=== PATIENT | female | born 1940 | race Caucasian/White ===

== ENCOUNTER 2023-06-30 08:36 | Emergency (ER) | payer MEDICARE, BC, SELFPAY ==
[2023-06-30 08:37] VITALS: BP 156/68
--- NOTE | 2023-06-30 08:42 | ED.GENMED ---
History of Present Illness
General
Chief Complaint: Fall
Source: patient and ambulance crew
Exam Limitations: none
Time Seen by Provider: 06/30/23 08:41
Nursing documentation reviewed up to this point in time: agreed with
Travel History
Have you had any contact with someone who has COVID-19?: No
Do you have any symptoms of coronavirus? Fever > 100 degrees, chills, cough, shortness of breath, sore throat, loss of taste or smell, muscle aches, or headache?: No
History of Present Illness
History of Present Illness:
82-year-old female with a past medical history as documented presents to the emergency room for evaluation after fall with head trauma. Patient currently lives at home independently in the community. She says that she urinates frequently given a
history of bladder cancer. She says that this morning she woke up to go to the bathroom and while she was pulling down her pants send the toilet she lost her balance and fell towards the right. She says she landed on her right side and struck the
right side of her head on the bathroom cabinet. She says she did not pass out. She sustained a laceration to right forehead. She says she was able to get up on her own and get dressed and called for help. EMS transported her to the emergency
room for assessment. She complains of a headache and some very mild pain in the right side of her neck since the fall. She says she did land on her shoulder but has no significant pain in her shoulder. She has no back pain. Denies any chest pain
or abdominal pain. She denies any pain in her lower extremities And was ambulatory after the fall. She denies being on any blood thinners. She says that her last tetanus was greater than 5 years ago.
Past History
Past History
ED Past Medical History: HTN and Other (Shelby's esophagus, atrophic vaginitis)
ED Past Surgical History: Cardiac (Had catheterization) and Orthopedic (Right knee replacement)
Social History
Tobacco: Non-smoker
Alcohol: None
Drug: None
Personal: Single
Living: alone
Employment: Retired
Family History
Family History: Other (Noncontributory)
Review of Systems
Review of Systems
All Other Systems: ROS reviewed and negative except as documented in HPI and ROS
Respiratory: Denies trouble breathing
Cardiac: Denies chest pain
ABD/GI: Denies abdominal pain, nausea or vomiting
: Denies flank pain
Musculoskeletal: Reports neck pain; Denies back pain
Neurological: Reports headache; Denies dizzy, weakness or numbness
Phy Exam
Physical Exam
Physical Exam:
General: Awake, alert, oriented x3 with a GCS of 15; no acute distress
Head: Normocephalic, right forehead laceration approximately 1.5 cm in linear, superficial
Eyes: Conjunctiva normal, pupils equal round reactive to light bilateral
Throat: Airway intact, handling secretions
Neck: Trachea midline, no midline cervical spine tenderness, very mild tenderness to the right upper trapezius region
Lungs: Clear to auscultation bilaterally, no wheezing, rales, rhonchi
Heart: Regular rate and rhythm, no murmurs, gallops, or rubs; no chest wall tenderness
Abd: Soft, non distended, nontender
Back: No signs of trauma to the back or flank and no tenderness in the thoracic or lumbar spine, no posterior rib tenderness
Neuro: Cranial nerves grossly intact, speech fluid, no gross motor or sensory deficits
Skin: Forehead laceration as above
Extremities: Atraumatic, no tenderness in the right shoulder and allows for full passive range of motion of the right shoulder without discomfort; she has no pain with range of motion of the hips bilaterally her knees bilaterally; no edema in
extremities, equal pulses in all extremities
Scores
Heart Failure Risk
Heart Failure Risk Score: Not Applicable
Heart Score for Chest Pain Patients
STEMI patient?: Not applicable
Withdrawal Assessment of Alcohol
Withdrawal Assessment Completed?: Not applicable
Course
Orders/Labs/Results
Orders:
Orders
06/30/23 08:41
Tetanus/Diphth/Acelpertussis [Adacel] 0.5 ml IM .ONCE ONE
06/30/23 08:42
CT Cervical Spine W/o Iv Contr Urgent
Comment:
Reason For Exam: neck pain s/p fall
CT Head W/o Iv Contrast Urgent
Comment:
Reason For Exam: fall with right frontal headstrike
Acetaminophen [Tylenol] 1,000 mg PO NOW STA
Vital Signs
Initial and Last Documented VS:
Initial Vital Signs
Temp Pulse Resp BP Pulse Ox
36.9 C 73 20 156/68 99
06/30/23 08:37 06/30/23 08:37 06/30/23 08:37 06/30/23 08:37 06/30/23 08:37
Last Documented Vital Signs
Temp Pulse Resp BP Pulse Ox
36.9 C 73 20 156/68 99
06/30/23 08:37 06/30/23 08:37 06/30/23 08:37 06/30/23 08:37 06/30/23 08:37
Procedures
Laceration Closure
Right Forehead:
Status of Wound: clean
Size of Wound in cm: 1.5
Description of Wound Edges: sharp
Preparation: cleaned with saline
Revision/Debridement: routine- no revision
Type of Closure: Dermabond-skin glue
MDM/Problems Addressed
Differential Diagnosis Includes:
Fall with head trauma: Must rule out intracranial hemorrhage but suspect more likely forehead contusion as cause for headache
Neck pain: Cervical strain, fracture
MDM/Problems Addressed:
82-year-old female presents after mechanical trip and fall in the bathroom this morning with head strike. She complains of headache and some mild right-sided neck pain. Vital signs within acceptable range. Physical exam as above. Will plan to
check CT head and cervical spine. Will update tetanus. Irrigate and repair laceration. Tylenol for headache. Monitor closely reassess after the above.
CT head and cervical spine negative for any acute traumatic injuries. Irrigated and repaired laceration using Dermabond as documented procedure note. Patient feeling well, vital signs stable. Plan for discharge; daughter at bedside feels
comfortable this plan. Spoke about return precautions all questions answered.
Acute Exacerbation and/or Progression of Chronic Illness:
Acutely hypertensive�no signs or symptoms of hypertensive emergency no indication for emergent antihypertensive treatment at present
Acute Exacerbation and/or Progression of Chronic Illness: HTN
*Radiology
Radiology exam reviewed: radiology read reviewed
*Pulse Oximetry
Patient hypoxic: no
*Critical Care Note
Total Time (30-74mins, 75-104mins- exclusive of procedures): Not Applicable
Data Reviewed
Source: patient and ambulance crew
ED Attending Note
-
Portions of this chart may have been created with voice recognition software.� Occasional wrong word or��sound alike� substitutions may have occurred due to the inherent limitations of voice recognition software.
Discharge Plan
Departure
Patient Disposition: Home (Routine Discharge)
Date of Disposition: 06/30/23
Time of Disposition: 09:35
Patient with high blood pressure during this ER visit?: Yes
Discharge Problem:
Contusion of forehead, Forehead laceration
Instructions: Laceration Repair With Glue (DC), Contusion (DC), Preventing falls in adults
Prescriptions:
No Action
pantoprazole 40 MG tablet,delayed release (DR/EC)
40 mg PO DAILY
levothyroxine 125 MCG tablet
125 mcg PO DAILY
escitalopram oxalate 20 MG tablet
20 mg PO DAILY
cholecalciferol (vitamin D3) 2,000 UNITS tablet
2,000 units PO DAILY
multivitamin with folic acid [Tab-A-Cesario] 1 TABLET tablet
1 tab PO DAILY
Jublia 4 ML solution with applicator
4 ml TP DAILY
Rx Instructions:
fungus on toe
amlodipine 2.5 MG tablet
2.5 mg PO DAILY Qty: 0 0RF
Rx Instructions:
Hold if systolic blood pressure <130 while on Oxycodone.
polyethylene glycol 3350 [Miralax] 17 gram Powder In Packet
17 g PO .EVERYOTHERDAY
calcium carbonate-vitamin D3 [Calcium + D] 600 mg-5 mcg (200 unit) Tablet
1 tab PO BID
Citrucel 500 mg Tablet
1,000 mg PO .EVERYOTHERDAY
darifenacin 7.5 mg Tablet Extended Release 24 Hr
7.5 mg PO DAILY
oxybutynin chloride 10 mg Tablet Extended Release 24hr
10 mg PO DAILY
Tylenol Ex Str Arthritis Pain
1,000 mg PO PRN PRN (Reason: discomfort)
Prolia 60 mg/mL Syringe
60 mg SC [id number]
phenazopyridine [Pyridium] 100 mg Tablet
100 mg PO TID PRN (Reason: burning with urination)
Referrals:
Lauren Friedman CRNP [Family Provider] - Follow up in 1 week
Activity Restrictions/Additional Instructions:
Thank you for visiting the Emergency Department at [facility].
1. Please schedule a follow up appointment as directed. Call first thing tomorrow morning to make an appointment.
2. If indicated, please take your medications as instructed and indicated on discharge paperwork.
3. If any of your symptoms do not improve, or persist, or become more severe within 6-12 hours, please return to the emergency department for further care.
4. Please return to the emergency department if you develop a headache, neck pain/stiffness, fever greater than 100.4F, chest pain, shortness of breath, persistent nausea, vomiting, slurred speech, difficulty walking, numbness/tingling, weakness,
signs of infection or any other symptoms that are worrisome to you.
Please call [phone] if you have any questions.
Interventions
Interventions:
*Risk Screen - Suicide Last Done: 06/30/23 08:43
*General Assessment Last Done: 06/30/23 08:43
*Neglect/Abuse Screening Last Done: 06/30/23 08:43
ED- Fall Risk Assessment Last Done: 06/30/23 08:43
*ED COVID-19 Vaccine History Last Done: 06/30/23 08:37
ED-Musculoskeletal Assessment Last Done: 06/30/23 08:43
ED- Neurological Assessment Last Done: 06/30/23 08:43
ED-Skin Assessment Last Done: 06/30/23 08:43
[2023-06-30] MEDS: TYLENOL 1000 MG PO (08:46)
[2023-06-30] MEDS: ADACEL 0.5 ML IM (08:47)
== END 2023-06-30 10:05 | disposition home or self-care (01) ==
LOC: EMR 08:36
PROVIDERS: EMERGENCY PHYSICIAN Emergency Medicine; FAMILY PHYSICIAN Nurse Practitioner Primary Care
DX: S01.81XA Laceration without foreign body of other part of head, initial encounter (principal); S00.83XA Contusion of other part of head, initial encounter; M54.2 Cervicalgia; R51.9 Headache, unspecified; W01.198A Fall on same level from slipping, tripping and stumbling with subsequent striking against other object, initial encounter; Y92.002 Bathroom of unspecified non-institutional (private) residence as the place of occurrence of the external cause; I10 Essential (primary) hypertension; K22.70 Barrett's esophagus without dysplasia; K21.9 Gastro-esophageal reflux disease without esophagitis; K44.9 Diaphragmatic hernia without obstruction or gangrene; M19.90 Unspecified osteoarthritis, unspecified site; E03.9 Hypothyroidism, unspecified; F41.9 Anxiety disorder, unspecified; F32.A Depression, unspecified; Z96.653 Presence of artificial knee joint, bilateral; Z85.51 Personal history of malignant neoplasm of bladder; Z85.828 Personal history of other malignant neoplasm of skin
CPT/HCPCS: 99284; 12011; 70450; 72125; 90715

== ENCOUNTER → 2023-08-20 10:59 | Outpatient (REF) | payer MEDICARE, BC, SELFPAY | LOC: PAVMRI 10:59 | PROVIDERS: ATTENDING PHYSICIAN Nurse Practitioner Family; FAMILY PHYSICIAN Nurse Practitioner Primary Care; OTHER PHYSICIAN Urology | DX: R07.81 Pleurodynia (principal); C67.8 Malignant neoplasm of overlapping sites of bladder | CPT/HCPCS: 74183; A9575 ==

== ENCOUNTER → 2023-09-09 08:19 | Outpatient (REF) | payer MEDICARE, BC, SELFPAY ==
[2023-09-09 09:17] LABS: % Basophils 0.7 % (0-2); % Eosinophils 2.6 % (0-6); % Lymphocytes 29.2 % (20.5-51.1); % Neutrophils 58.5 % (42.2-75.2); Absolute Eosinophils 0.2 10^3/uL (0-0.7); Absolute Immature Granulocytes 0.1 10^3/uL (0-0.05); Absolute Lymphocytes 1.8 10^3/uL (1.2-3.4); Absolute Monocytes 0.5 10^3/uL (0.1-0.6); Absolute Neutrophils 3.6 10^3/uL (1.4-6.5); Hematocrit 36.2 % (37.0-47.0); Hemoglobin 11.7 g/dL (12.0-16.0); Mean Corp Hgb Conc. 32.3 g/dL (33.0-37.0); Mean Corpuscular Hgb 30.6 pg (27.0-31.0); Mean Corpuscular Volume 94.8 fL (81.0-99.0); Mean Platelet Volume 10.3 fL (7.4-10.4); Nucleated Red Blood Cells % 0 %; Platelet Count 288 10^3/uL (130-400); Red Blood Cell Count 3.82 10^6/uL (4.20-5.40); Red Cell Dist. Width 14.2 % (11.5-14.5); White Blood Cell Count 6.1 10^3/uL (4.8-10.8)
[2023-09-09 12:56] LABS: Free T4 1.48 ng/dl (0.78-2.19)
[2023-09-09 13:14] LABS: Ferritin 29.3 ng/ml (11.1-264.0)
[2023-09-09 13:46] LABS: Folate > 20.0 ng/ml (2.76-20); Vitamin B12 308 pg/ml (239-931)
[2023-09-09 14:05] LABS: ALT (SGPT) 20 U/L (0-35); AST (SGOT) 28 U/L (14-36); Albumin 3.9 g/dl (3.5-5.0); Alkaline Phosphatase 98 U/L (38-126); Blood Urea Nitrogen 12 mg/dl (7-17); Calcium 9.3 mg/dl (8.4-10.2); Carbon Dioxide 25 mmol/L (22-30); Chloride 106 mmol/L (98-107); Glucose 100 mg/dl (70-99); HDL Cholesterol 51 mg/dl; Iron 92 ug/dl (37-170); LDL Cholesterol, Calculated 108 mg/dl; Potassium 4.6 mmol/L (3.5-5.1); Sodium 142 mmol/L (135-145); Total Bilirubin 0.4 mg/dl (0.2-1.3); Total Cholesterol 186 mg/dl (50-199); Total Protein 6.8 g/dl (6.3-8.2); Triglyceride 136 mg/dl (10-149); Very Low Density Lipoprotein 27 mg/dl (0-30); eGFR > 60.00
== END ==
LOC: REG 08:19
PROVIDERS: ATTENDING PHYSICIAN Nurse Practitioner Primary Care; REFERRING PHYSICIAN Urology
DX: I10 Essential (primary) hypertension (principal); K21.9 Gastro-esophageal reflux disease without esophagitis; E03.8 Other specified hypothyroidism; M51.36 Other intervertebral disc degeneration, lumbar region; E03.9 Hypothyroidism, unspecified
CPT/HCPCS: 36415; 80053; 80061; 82607; 82728; 82746; 83540; 83735; 84439; 84443; 85025

== ENCOUNTER → 2023-11-07 12:36 | Outpatient (REF) | payer MEDICARE, BC, SELFPAY ==
[2023-11-07 13:21] LABS: % Basophils 0.4 % (0-2); % Eosinophils 2.3 % (0-6); % Immature Granulocytes 0.9 % (0-0.5); % Lymphocytes 29.3 % (20.5-51.1); % Monocytes 7.7 % (1.7-9.3); % Neutrophils 59.4 % (42.2-75.2); Absolute Eosinophils 0.2 10^3/uL (0-0.7); Absolute Immature Granulocytes 0.1 10^3/uL (0-0.05); Absolute Monocytes 0.5 10^3/uL (0.1-0.6); Absolute Neutrophils 4.1 10^3/uL (1.4-6.5); Hematocrit 38.6 % (37.0-47.0); Hemoglobin 12.2 g/dL (12.0-16.0); Mean Corp Hgb Conc. 31.6 g/dL (33.0-37.0); Mean Corpuscular Volume 94.8 fL (81.0-99.0); Nucleated Red Blood Cells % 0 %; Platelet Count 373 10^3/uL (130-400); Red Blood Cell Count 4.07 10^6/uL (4.20-5.40); Red Cell Dist. Width 12.3 % (11.5-14.5); White Blood Cell Count 6.9 10^3/uL (4.8-10.8)
[2023-11-07 13:44] LABS: ALT (SGPT) 17 U/L (0-35); AST (SGOT) 27 U/L (14-36); Albumin 3.8 g/dl (3.5-5.0); Alkaline Phosphatase 120 U/L (38-126); Blood Urea Nitrogen 18 mg/dl (7-17); Calcium 9.5 mg/dl (8.4-10.2); Carbon Dioxide 28 mmol/L (22-30); Chloride 107 mmol/L (98-107); Glucose 123 mg/dl (70-99); Potassium 4.5 mmol/L (3.5-5.1); Sodium 142 mmol/L (135-145); Total Bilirubin 0.4 mg/dl (0.2-1.3); eGFR > 60.00
[2023-11-07 14:22] LABS: Cortisol, Random 11.8 ug/dl; TSH Reflex To Free T4 1.33 uIU/ml (0.47-4.68)
== END ==
LOC: REG 12:36
PROVIDERS: ATTENDING PHYSICIAN Internal Medicine Hematology & Oncology; FAMILY PHYSICIAN Nurse Practitioner Primary Care
DX: C67.9 Malignant neoplasm of bladder, unspecified (principal); E03.9 Hypothyroidism, unspecified
CPT/HCPCS: 36415; 80053; 82533; 84443; 85025

== ENCOUNTER → 2023-12-01 13:38 | Outpatient (REF) | payer MEDICARE, BC, SELFPAY ==
[2023-12-01 14:28] LABS: % Basophils 0.5 % (0-2); % Eosinophils 0.9 % (0-6); % Immature Granulocytes 0.7 % (0-0.5); % Lymphocytes 23.3 % (20.5-51.1); % Monocytes 8.4 % (1.7-9.3); % Neutrophils 66.2 % (42.2-75.2); Absolute Basophils 0.1 10^3/uL (0-0.2); Absolute Eosinophils 0.1 10^3/uL (0-0.7); Absolute Immature Granulocytes 0.1 10^3/uL (0-0.05); Absolute Lymphocytes 2.3 10^3/uL (1.2-3.4); Absolute Monocytes 0.8 10^3/uL (0.1-0.6); Absolute Neutrophils 6.5 10^3/uL (1.4-6.5); Hematocrit 36.4 % (37.0-47.0); Hemoglobin 12.3 g/dL (12.0-16.0); Mean Corp Hgb Conc. 33.8 g/dL (33.0-37.0); Mean Corpuscular Hgb 30.5 pg (27.0-31.0); Mean Corpuscular Volume 90.3 fL (81.0-99.0); Mean Platelet Volume 10.1 fL (7.4-10.4); Nucleated Red Blood Cells % 0 %; Platelet Count 349 10^3/uL (130-400); Red Blood Cell Count 4.03 10^6/uL (4.20-5.40); Red Cell Dist. Width 13.2 % (11.5-14.5); White Blood Cell Count 9.8 10^3/uL (4.8-10.8)
[2023-12-01 14:48] LABS: ALT (SGPT) 16 U/L (0-35); AST (SGOT) 26 U/L (14-36); Albumin 4.2 g/dl (3.5-5.0); Alkaline Phosphatase 124 U/L (38-126); Blood Urea Nitrogen 15 mg/dl (7-17); Calcium 9.8 mg/dl (8.4-10.2); Carbon Dioxide 26 mmol/L (22-30); Chloride 104 mmol/L (98-107); Glucose 126 mg/dl (70-99); Potassium 4.2 mmol/L (3.5-5.1); Sodium 140 mmol/L (135-145); Total Bilirubin 0.3 mg/dl (0.2-1.3); Total Protein 7.4 g/dl (6.3-8.2); eGFR > 60.00
[2023-12-01 15:06] LABS: Free T4 1.24 ng/dl (0.78-2.19)
[2023-12-01 15:20] LABS: TSH 8.44 uIU/ml (0.47-4.68)
[2023-12-03 17:14] LABS: Total T3 (Sendout) 101 ng/dL (80-200)
== END ==
LOC: REG 13:38
PROVIDERS: ATTENDING PHYSICIAN Internal Medicine Hematology & Oncology; FAMILY PHYSICIAN Nurse Practitioner Primary Care
DX: C67.9 Malignant neoplasm of bladder, unspecified (principal); E03.9 Hypothyroidism, unspecified
CPT/HCPCS: 36415; 80053; 84439; 84443; 84480; 85025

== ENCOUNTER → 2023-12-23 16:30 | Outpatient (REF) | payer MEDICARE, BC, SELFPAY ==
[2023-12-23 17:43] LABS: % Basophils 0.7 % (0-2); % Immature Granulocytes 0.7 % (0-0.5); % Lymphocytes 26.3 % (20.5-51.1); % Monocytes 8.4 % (1.7-9.3); % Neutrophils 61.9 % (42.2-75.2); Absolute Basophils 0.1 10^3/uL (0-0.2); Absolute Eosinophils 0.2 10^3/uL (0-0.7); Absolute Immature Granulocytes 0.1 10^3/uL (0-0.05); Absolute Monocytes 0.6 10^3/uL (0.1-0.6); Absolute Neutrophils 4.8 10^3/uL (1.4-6.5); Mean Corp Hgb Conc. 33.3 g/dL (33.0-37.0); Mean Corpuscular Hgb 30.2 pg (27.0-31.0); Mean Corpuscular Volume 90.5 fL (81.0-99.0); Mean Platelet Volume 10.2 fL (7.4-10.4); Nucleated Red Blood Cells % 0 %; Platelet Count 345 10^3/uL (130-400); Red Blood Cell Count 3.98 10^6/uL (4.20-5.40); Red Cell Dist. Width 13.2 % (11.5-14.5); White Blood Cell Count 7.7 10^3/uL (4.8-10.8)
[2023-12-23 17:50] LABS: Iron 62 ug/dl (37-170)
[2023-12-23 18:00] LABS: Percent Saturation 17 % (20-50); Total Iron Binding Capacity 353 ug/dl (265-497)
[2023-12-23 18:08] LABS: Free T4 1.39 ng/dl (0.78-2.19)
[2023-12-23 18:22] LABS: TSH 2.22 uIU/ml (0.47-4.68)
[2023-12-23 18:26] LABS: Ferritin 25.5 ng/ml (11.1-264.0)
== END ==
LOC: REG 16:30
PROVIDERS: ATTENDING PHYSICIAN Nurse Practitioner Primary Care
DX: E03.8 Other specified hypothyroidism (principal); D64.9 Anemia, unspecified
CPT/HCPCS: 36415; 82728; 83540; 83550; 84439; 84443; 85025

== ENCOUNTER → 2023-12-24 14:54 | Outpatient (REF) | payer MEDICARE, BC, SELFPAY ==
[2023-12-24 16:27] LABS: % Basophils 0.5 % (0-2); % Eosinophils 1.5 % (0-6); % Immature Granulocytes 0.7 % (0-0.5); % Lymphocytes 20.7 % (20.5-51.1); % Monocytes 8.7 % (1.7-9.3); % Neutrophils 67.9 % (42.2-75.2); Absolute Basophils 0.1 10^3/uL (0-0.2); Absolute Eosinophils 0.2 10^3/uL (0-0.7); Absolute Immature Granulocytes 0.1 10^3/uL (0-0.05); Absolute Monocytes 0.8 10^3/uL (0.1-0.6); Absolute Neutrophils 6.6 10^3/uL (1.4-6.5); Hematocrit 34.8 % (37.0-47.0); Hemoglobin 11.9 g/dL (12.0-16.0); Mean Corp Hgb Conc. 34.2 g/dL (33.0-37.0); Mean Corpuscular Hgb 30.9 pg (27.0-31.0); Mean Corpuscular Volume 90.4 fL (81.0-99.0); Mean Platelet Volume 10.3 fL (7.4-10.4); Nucleated Red Blood Cells % 0 %; Platelet Count 341 10^3/uL (130-400); Red Blood Cell Count 3.85 10^6/uL (4.20-5.40); Red Cell Dist. Width 13.2 % (11.5-14.5); White Blood Cell Count 9.7 10^3/uL (4.8-10.8)
[2023-12-24 17:25] LABS: ALT (SGPT) 18 U/L (0-35); AST (SGOT) 29 U/L (14-36); Albumin 3.9 g/dl (3.5-5.0); Alkaline Phosphatase 119 U/L (38-126); Blood Urea Nitrogen 13 mg/dl (7-17); Calcium 9.3 mg/dl (8.4-10.2); Carbon Dioxide 25 mmol/L (22-30); Chloride 106 mmol/L (98-107); Glucose 124 mg/dl (70-99); Potassium 4.4 mmol/L (3.5-5.1); Sodium 140 mmol/L (135-145); Total Bilirubin 0.3 mg/dl (0.2-1.3); Total Protein 6.8 g/dl (6.3-8.2); eGFR > 60.00
== END ==
LOC: REG 14:54
PROVIDERS: ATTENDING PHYSICIAN Internal Medicine Hematology & Oncology; FAMILY PHYSICIAN Nurse Practitioner Primary Care
DX: C67.9 Malignant neoplasm of bladder, unspecified (principal)
CPT/HCPCS: 36415; 80053; 85025

== ENCOUNTER → 2024-01-12 17:11 | Outpatient (REF) | payer MEDICARE, BC, SELFPAY ==
[2024-01-12 18:19] LABS: ALT (SGPT) 18 U/L (0-35); AST (SGOT) 28 U/L (14-36); Albumin 4.2 g/dl (3.5-5.0); Alkaline Phosphatase 128 U/L (38-126); Blood Urea Nitrogen 10 mg/dl (7-17); Calcium 9.6 mg/dl (8.4-10.2); Carbon Dioxide 27 mmol/L (22-30); Chloride 105 mmol/L (98-107); Glucose 147 mg/dl (70-99); Potassium 4.5 mmol/L (3.5-5.1); Sodium 141 mmol/L (135-145); Total Bilirubin 0.3 mg/dl (0.2-1.3); Total Protein 7.2 g/dl (6.3-8.2); eGFR > 60.00
[2024-01-12 18:29] LABS: % Basophils 0.4 % (0-2); % Eosinophils 1.8 % (0-6); % Immature Granulocytes 0.9 % (0-0.5); % Lymphocytes 22.3 % (20.5-51.1); % Monocytes 8.1 % (1.7-9.3); % Neutrophils 66.5 % (42.2-75.2); Absolute Eosinophils 0.2 10^3/uL (0-0.7); Absolute Immature Granulocytes 0.1 10^3/uL (0-0.05); Absolute Lymphocytes 2.3 10^3/uL (1.2-3.4); Absolute Monocytes 0.8 10^3/uL (0.1-0.6); Absolute Neutrophils 6.9 10^3/uL (1.4-6.5); Hematocrit 36.5 % (37.0-47.0); Hemoglobin 12.1 g/dL (12.0-16.0); Mean Corp Hgb Conc. 33.2 g/dL (33.0-37.0); Mean Corpuscular Hgb 30.1 pg (27.0-31.0); Mean Corpuscular Volume 90.8 fL (81.0-99.0); Mean Platelet Volume 9.9 fL (7.4-10.4); Nucleated Red Blood Cells % 0 %; Platelet Count 374 10^3/uL (130-400); Red Blood Cell Count 4.02 10^6/uL (4.20-5.40); Red Cell Dist. Width 13.2 % (11.5-14.5); White Blood Cell Count 10.3 10^3/uL (4.8-10.8)
[2024-01-12 18:36] LABS: Free T4 1.18 ng/dl (0.78-2.19)
[2024-01-12 18:49] LABS: TSH 3.36 uIU/ml (0.47-4.68)
[2024-01-14 21:36] LABS: Total T3 (Sendout) 114 ng/dL (80-200)
== END ==
LOC: REG 17:11
PROVIDERS: ATTENDING PHYSICIAN Internal Medicine Hematology & Oncology; FAMILY PHYSICIAN Nurse Practitioner Primary Care
DX: C67.9 Malignant neoplasm of bladder, unspecified (principal); E03.9 Hypothyroidism, unspecified
CPT/HCPCS: 36415; 80053; 84439; 84443; 84480; 85025

== ENCOUNTER → 2024-02-03 15:54 | Outpatient (REF) | payer MEDICARE, BC, SELFPAY ==
[2024-02-03 16:39] LABS: % Basophils 0.4 % (0-2); % Eosinophils 1.6 % (0-6); % Immature Granulocytes 0.8 % (0-0.5); % Lymphocytes 32.2 % (20.5-51.1); % Monocytes 9.2 % (1.7-9.3); % Neutrophils 55.8 % (42.2-75.2); Absolute Eosinophils 0.1 10^3/uL (0-0.7); Absolute Immature Granulocytes 0.1 10^3/uL (0-0.05); Absolute Lymphocytes 2.3 10^3/uL (1.2-3.4); Absolute Monocytes 0.7 10^3/uL (0.1-0.6); Absolute Neutrophils 3.9 10^3/uL (1.4-6.5); Hematocrit 33.5 % (37.0-47.0); Hemoglobin 11.3 g/dL (12.0-16.0); Mean Corp Hgb Conc. 33.7 g/dL (33.0-37.0); Mean Corpuscular Volume 88.9 fL (81.0-99.0); Mean Platelet Volume 9.5 fL (7.4-10.4); Nucleated Red Blood Cells % 0 %; Platelet Count 371 10^3/uL (130-400); Red Blood Cell Count 3.77 10^6/uL (4.20-5.40); Red Cell Dist. Width 13.3 % (11.5-14.5); White Blood Cell Count 7.1 10^3/uL (4.8-10.8)
[2024-02-03 16:55] LABS: ALT (SGPT) 24 U/L (0-35); AST (SGOT) 34 U/L (14-36); Alkaline Phosphatase 133 U/L (38-126); Blood Urea Nitrogen 8 mg/dl (7-17); Calcium 9.4 mg/dl (8.4-10.2); Carbon Dioxide 28 mmol/L (22-30); Chloride 105 mmol/L (98-107); Glucose 102 mg/dl (70-99); Potassium 4.7 mmol/L (3.5-5.1); Sodium 146 mmol/L (135-145); Total Bilirubin 0.4 mg/dl (0.2-1.3); Total Protein 7.1 g/dl (6.3-8.2); eGFR > 60.00
[2024-02-03 17:09] LABS: Free T3 2.88 pg/ml (2.77-5.27); Free T4 1.44 ng/dl (0.78-2.19)
[2024-02-03 17:23] LABS: TSH 2.32 uIU/ml (0.47-4.68)
== END ==
LOC: REG 15:54
PROVIDERS: ATTENDING PHYSICIAN Internal Medicine Hematology & Oncology; FAMILY PHYSICIAN Nurse Practitioner Primary Care
DX: C67.9 Malignant neoplasm of bladder, unspecified (principal); E03.9 Hypothyroidism, unspecified
CPT/HCPCS: 36415; 80053; 84439; 84443; 84481; 85025

== ENCOUNTER 2024-02-05 23:44 | Inpatient (IN) | payer MEDICARE, BC, SELFPAY ==
[2024-02-05 19:06] VITALS: BMI 26.3
[2024-02-05 19:18] VITALS: BP 109/61
[2024-02-05 19:44] LABS: % Basophils 0.4 % (0-2); % Eosinophils 0.5 % (0-6); % Immature Granulocytes 1.1 % (0-0.5); % Lymphocytes 9.3 % (20.5-51.1); % Monocytes 5.8 % (1.7-9.3); % Neutrophils 82.9 % (42.2-75.2); Absolute Basophils 0.1 10^3/uL (0-0.2); Absolute Eosinophils 0.1 10^3/uL (0-0.7); Absolute Immature Granulocytes 0.2 10^3/uL (0-0.05); Absolute Lymphocytes 2.1 10^3/uL (1.2-3.4); Absolute Monocytes 1.3 10^3/uL (0.1-0.6); Absolute Neutrophils 18.7 10^3/uL (1.4-6.5); Hematocrit 34.3 % (37.0-47.0); Hemoglobin 11.9 g/dL (12.0-16.0); Mean Corp Hgb Conc. 34.7 g/dL (33.0-37.0); Mean Corpuscular Hgb 30.1 pg (27.0-31.0); Mean Corpuscular Volume 86.6 fL (81.0-99.0); Mean Platelet Volume 9.6 fL (7.4-10.4); Nucleated Red Blood Cells % 0 %; Platelet Count 380 10^3/uL (130-400); Red Blood Cell Count 3.96 10^6/uL (4.20-5.40); Red Cell Dist. Width 13.6 % (11.5-14.5); White Blood Cell Count 22.6 10^3/uL (4.8-10.8)
[2024-02-05 19:52] LABS: ALT (SGPT) 19 U/L (0-35); AST (SGOT) 29 U/L (14-36); Alkaline Phosphatase 128 U/L (38-126); Blood Urea Nitrogen 18 mg/dl (7-17); Carbon Dioxide 22 mmol/L (22-30); Chloride 105 mmol/L (98-107); Glucose 135 mg/dl (70-99); Sodium 141 mmol/L (135-145); Total Bilirubin 0.8 mg/dl (0.2-1.3); eGFR > 60.00
[2024-02-05 19:54] LABS: Lipase 61 U/L (23-300)
[2024-02-05 20:16] VITALS: BP 116/58
--- NOTE | 2024-02-05 20:19 | ED.GENMED ---
History of Present Illness
General
Chief Complaint: Abdominal Symptoms
Source: patient
Time Seen by Provider: 02/05/24 20:05
History of Present Illness
History of Present Illness:
83-year-old female presents to the emergency room complaining of nausea, vomiting, diarrhea. Patient began having symptoms today. She has had innumerable episodes of watery orange diarrhea. She also has nausea vomiting. Patient receives
infusions of Keytruda every 3 weeks other than that she is not really been out of the house much. She did have a procedure recently to exchange a ureteral stent and biopsy her bladder. She was on amoxicillin after this procedure. No sick
contacts. No travel.
Past History
Past History
ED Past Medical History: HTN and Other (Shelby's esophagus, atrophic vaginitis)
ED Past Surgical History: Cardiac (Had catheterization) and Orthopedic (Right knee replacement)
Social History
Tobacco: Non-smoker
Alcohol: None
Drug: None
Personal: Single
Living: alone
Employment: Retired
Family History
Family History: Other (Noncontributory)
Phy Exam
Physical Exam
Physical Exam:
General: Awake, Alert, Oriented X3. No acute distress.
Vitals: Tachycardic
Head: Atraumatic
Eyes: Pupils equal, EOMI
Throat: Airway intact, no exudates, dry mucosa
Neck: Trachea midline
Lungs: Clear and equal b/l
Heart: Regular rate, no murmurs
Abd: Soft, Nontender, No pulsatile mass
Neuro: Nonfocal
Skin: Warm, dry, no rash
Extremities: pulses equal b/l, no edema
Course
Orders/Labs/Results
Orders:
Orders
02/05/24 19:22
IV Insert/Care/Rem.- Treatment PRN
02/05/24 19:26
Complete Blood Count/With Diff Urgent
Comprehensive Metabolic Panel Urgent
Lipase Urgent
Magnesium Urgent
Comment: ADD ON
02/05/24 20:19
STOOL [C difficile Antigen & Toxins] Urgent
GENO Source: Feces/Stool
Specimen Description:
Stool Culture Urgent
GENO Source: Feces/Stool
Specimen Description:
Lactated Ringers [Lr] 1,000 ml IV BOLUS
Ondansetron Injectable [Zofran] 4 mg IV NOW STA
02/05/24 20:20
Electrocardiogram (*1) Urgent
Reason for Study: QTc Monitoring
EKG- Treatment ONCE
02/05/24 20:21
Norovirus by PCR Urgent
GENO Source: Feces/Stool
Specimen Description:
02/05/24 21:54
CR Chest - 2 Views Urgent
Comment:
Reason For Exam: sob
02/05/24 22:02
COVID-19 Antigen Urgent
Source: Nasal Swab
02/05/24 23:00
Flush (0.9% Sodium Chloride) [Flush (Nss)] See Dose Instructions IV PER PROTOCOL
02/05/24 23:15
0.9% Sodium Chloride 1000 ml [Nss] 1,000 ml IV 200 mls/hr
02/05/24 23:24
Vancomycin HCl [Firvanq] 125 mg PO NOW STA
Abnormal Lab Results
02/05/24
19:26
WBC 22.6 H 10^3/uL
(4.8-10.8)
RBC 3.96 L 10^6/uL
(4.20-5.40)
Hgb 11.9 L g/dL
(12.0-16.0)
Hct 34.3 L %
(37.0-47.0)
Abs Immat Gran (auto) 0.2 H 10^3/uL
(0-0.05)
Absolute Neuts (auto) 18.7 H 10^3/uL
(1.4-6.5)
Absolute Monos (auto) 1.3 H 10^3/uL
(0.1-0.6)
Immature Gran % 1.1 H %
(0-0.5)
Neutrophils % 82.9 H %
(42.2-75.2)
Lymphocytes % 9.3 L %
(20.5-51.1)
BUN 18 H mg/dl
(7-17)
Glucose 135 H mg/dl
(70-99)
Alkaline Phosphatase 128 H U/L
(38-126)
02/05/24 19:26
02/05/24 19:26
Vital Signs
Initial and Last Documented VS:
Initial Vital Signs
Temp Pulse Resp BP Pulse Ox
100.0 F 107 18 109/61 95
02/05/24 19:18 02/05/24 19:18 02/05/24 19:18 02/05/24 19:18 02/05/24 19:18
Last Documented Vital Signs
Temp Pulse Resp BP Pulse Ox
97.4 F 88 20 120/52 97
02/06/24 00:45 02/06/24 00:45 02/06/24 00:45 02/06/24 00:45 02/06/24 01:46
MDM/Problems Addressed
Differential Diagnosis Includes:
Viral gastroenteritis, C. difficile, electrode abnormality, dehydration
MDM/Problems Addressed:
Patient presents with voluminous diarrhea, nausea vomiting. Labs show significant elevation of her white blood cell count of 22,000. Chemistry show mild elevation of BUN. Patient presents today with IV fluids. Given antiemetics. Patient feels
somewhat better but when attempted to ambulate she felt too weak to walk. Concern for C. difficile primarily. Will treat with oral Vanco
*Pulse Oximetry
Patient hypoxic: no
*Critical Care Note
Total Time (30-74mins, 75-104mins- exclusive of procedures): Not Applicable
ED Attending Note
-
Portions of this chart may have been created with voice recognition software.� Occasional wrong word or��sound alike� substitutions may have occurred due to the inherent limitations of voice recognition software.
Discharge Plan
Departure
Patient Disposition: Admit
Date of Disposition: 02/05/24
Time of Disposition: 23:15
Admit to: Med/Surg
Presentation/result/management discussed w/ accepting MD/DO: Hospitalist
Condition: Fair
Discharge Problem:
Acute dehydration, Diarrhea
Interventions
Interventions:
*Risk Screen - Suicide Last Done: 02/06/24 01:12
*General Assessment Last Done: 02/05/24 19:18
*Neglect/Abuse Screening Last Done: 02/05/24 19:18
ED- Fall Risk Assessment Last Done: 02/05/24 21:12
*ED COVID-19 Vaccine History Last Done: 02/05/24 20:33
*Nursing Disposition Last Done: 02/06/24 00:42
YX-Voykgh-Rusvxkwtrl Assessment Last Done: 02/05/24 20:32
Discharge Date and Time
Discharge Date/Time: 02/06/24 00:42
[2024-02-05] MEDS: LR 1000 IV (20:42)
[2024-02-05] MEDS: ZOFRAN 4 MG IV (20:42)
[2024-02-05 21:00] VITALS: BP 117/47
--- NOTE | 2024-02-05 21:01 | EDRN ---
Pt. refused straight catheterization despite RN explanation that this is the cleanest way to obtain UA. Pt. continues to refuse. RN completed incontinence care, cleaned yadiel area w/ susy wipes, placed external catheter in order to obtain urine
sample.
[2024-02-05 22:23] LABS: COVID-19 Antigen Negative (Negative)
[2024-02-05 22:44] VITALS: BP 109/49
[2024-02-05 23:04] VITALS: BP 132/58
--- NOTE | 2024-02-05 23:13 | EDRN ---
Pt. ambulated to bathroom w. RN w/ steady gait, became very weak during ambulation, pulse ox. 88% on RA upon return to stretcher. Pt. returned on NC at 2L, Dr. Merlos aware, pt. to be admitted.
--- NOTE | 2024-02-05 23:15 | HPS.HSE ---
Addendum entered and electronically signed by Lisandra Ferreira MD 02/06/24 00:46:
Sepsis 2/2 GI Illness
-patient meets sepsis criteria with leukocytosis and elevated RR and pulse
-will obtain lactate
Addendum entered and electronically signed by Lisandra Ferreira MD 02/06/24 00:10:
hold ANIMAL [employer]Y TE[employer]ER Amlodipine for now
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
Original Note:
Family Physician
-
Family Physician: NOT KNOW UNKNOWN - PT DOES
Chief Complaint
-
vomiting and diarrhea
History of Present Illness
Ms. Debi Prescott is a 83 yo woman with hx essential HTN, lumbar radiculopathy, Shelby's esophagus, hypothyroidism, bladder cancer s/p TURBT 2021 on Keytruda infusions, anxiety/depression presents to the ER with vomiting and diarrhea.
Patient states symptoms started yesterday evening. She has had liquid diarrhea 'every time I move' described as orange in color. No blood. + nausea and vomiting, some dry heaves. She has not eaten anything. No abdominal pain. She was on a
course of amoxicillin from last Friday to Friday because she had ureteral stent replacement on Friday.
Has felt feverish, no chills. No headache. No chest pain or shortness of breath. Intermittently gets LE swelling.
Medical History
Past Medical History
Past Medical History: Reports Other ( essential HTN, lumbar radiculopathy, Shelby's esophagus, hypothyroidism, bladder cancer s/p TURBT 2021, anxiety/depression)
Past Surgical History: Reports Cholecystectomy, Orthopedic (bilateral knee replacement 2093), Urological (cystoscopy, TURBT February 2022) and Other (Moh's )
Social History
Tobacco: Non-smoker
Alcohol: None
Family History
Family History: Not pertinent
Allergies / Home Medications
Allergies reflects when Allergies were last updated in [facility].
Home Medications with original date entered in [facility]
Allergy/Medication List:
*awaiting med rec
Allergies
Allergy/AdvReac Type Severity Reaction Status Date / Time
hydrocodone [From Vicodin] Allergy made me Verified 02/05/24 19:18
loopy
Sulfa (Sulfonamide Allergy Hives/swell Verified 02/05/24 19:18
Antibiotics) ing/itching
Home Medications
cholecalciferol (vitamin D3) 50 mcg (2,000 unit) tablet 2,000 units PO DAILY Supplement 05/09/21
efinaconazole 10 % topical solution with applicator (Jublia) 4 ml TP DAILY Infection 05/09/21
escitalopram oxalate 20 mg tablet 20 mg PO DAILY Mental Health/Anxiety 05/09/21
levothyroxine 125 mcg tablet 125 mcg PO DAILY Thyroid 05/09/21
multivitamin with folic acid 400 mcg tablet (Tab-A-Cesario) 1 tab PO DAILY Supplement 05/09/21
pantoprazole 40 mg tablet,delayed release 40 mg PO DAILY Gastrointestinal issue 05/09/21
amlodipine 2.5 mg tablet 2.5 mg PO DAILY Blood pressure ##0 06/05/21
calcium carbonate 600 mg-vitamin D3 5 mcg (200 unit) tablet 1 tab PO BID 01/09/22
darifenacin 7.5 mg tablet,extended release 24 hr 7.5 mg PO DAILY 01/09/22
methylcellulose (laxative) 500 mg tablet (Citrucel) 1,000 mg PO .EVERYOTHERDAY 01/09/22
polyethylene glycol 3350 17 gram oral powder packet (Miralax) 17 g PO .EVERYOTHERDAY 01/09/22
Tylenol Ex Str Arthritis Pain 1,000 mg PO PRN PRN discomfort 03/01/22
denosumab 60 mg/mL subcutaneous syringe (Prolia) 60 mg SC [id number] 03/01/22
oxybutynin chloride 10 mg tablet,extended release 24 hr 10 mg PO DAILY 03/01/22
phenazopyridine 100 mg tablet (Pyridium) 100 mg PO TID PRN burning with urination 07/09/22
Review of Systems
-
History Source: Patient
A 12 point ROS was completed and negative except as noted: Yes
Physical Exam
Vital Signs
Vital Signs
Temp Pulse Resp BP Pulse Ox
99.8 F 90 22 117/47 93
02/05/24 21:00 02/05/24 22:15 02/05/24 22:15 02/05/24 21:00 02/05/24 22:31
Physical Exam
General: No Apparent Distress
HEENT: PERRLA
Respiratory: Clear; No Wheezes
Cardiac: S1/S2 and Regular Rhythm
GI: Soft, Non Tender and Non Distended
Musculoskeletal: No Edema
Skin: Warm and Dry; No Rash
Neuro: AO x 3
Psych: Calm
Laboratory Results
-
02/05/24 19:26
02/05/24 19:26
Laboratory Results
Total Bilirubin 0.8 mg/dl (0.2-1.3) 02/05/24 19:26
AST 29 U/L (14-36) 02/05/24 19:26
ALT 19 U/L (0-35) 02/05/24 19:26
Alkaline Phosphatase 128 U/L (38-126) H 02/05/24 19:26
Lipase 61 U/L (23-300) 02/05/24 19:26
Data Reviewed
-
Diagnostic Radiology: Report Reviewed by me
Lab Data: Labs Reviewed by me
Impression/Plan
-
Ms. Debi Prescott is a 83 yo woman with hx essential HTN, lumbar radiculopathy, Shelby's esophagus, hypothyroidism, bladder cancer s/p TURBT 2021 on Keytruda infusions, anxiety/depression presents to the ER with vomiting and diarrhea.
Triage VS: T 100.0, P 107, RR 18, BP 109/61, SpO2 95%
LABS: WBC 22.6, Hg 11.9, PLT 380, Na 141, K+ 4.0, BUN 18, Cr 0.9, Glucose 135, T. Bili 0.8, AST 29, ALT 19, Alk Phos 128
EKG: sinus tach @ 107, PAC; QTc 448
MAR: 1L bolus, NS @ 200/hr, IV Zofran
Diarrhea
Nausea/Vomiting
-admit to tele
-awaiting stool culture, C. Diff, Norovirus testing (unable to collect sample in ER given contaminated with urine)
-reasonable to continue treatment for C. Diff given leukocytosis, and elevated WBC as well as convincing history
-continue oral vanc
-IVF
-PT/OT
Essential HTN
Lumbar Radiculopathy
Shelby's Esophagus
Hypothyroidism
Bladder Cancer
-diagnosis 2021
on Keytruda Infusions
-Urologist is at [place]; Oncologist is Dr. Castillo
Anxiety/Depression
awaiting med rec
DVT PPx Lovenox subQ
DNR - discussed on admission with daughter at bedside
76 minutes spent on patient care
[2024-02-05] MEDS: FIRVANQ 125 MG PO (23:56)
[2024-02-05] MEDS: NSS 1000 IV (23:58)
[2024-02-06] VITALS (12 sets, daily range): BP systolic 108–128; BP diastolic 51–58; PULSE 90; O2SAT 96; BMI 26.1
[2024-02-06 00:38] LABS: Magnesium 1.7 mg/dl (1.6-2.3)
[2024-02-06] MEDS: LR 1000 IV ×3 (01:06→17:37)
[2024-02-06] MEDS: SYNTHROID 125 MCG PO (05:10)
[2024-02-06] MEDS: FIRVANQ 125 MG PO ×3 (05:10→17:37)
[2024-02-06 07:41] LABS: % Basophils 0.3 % (0-2); % Eosinophils 0.1 % (0-6); % Immature Granulocytes 0.9 % (0-0.5); % Lymphocytes 13.2 % (20.5-51.1); % Monocytes 6.3 % (1.7-9.3); % Neutrophils 79.2 % (42.2-75.2); Absolute Basophils 0.1 10^3/uL (0-0.2); Absolute Immature Granulocytes 0.2 10^3/uL (0-0.05); Absolute Lymphocytes 2.3 10^3/uL (1.2-3.4); Absolute Monocytes 1.1 10^3/uL (0.1-0.6); Absolute Neutrophils 13.9 10^3/uL (1.4-6.5); Hematocrit 29.2 % (37.0-47.0); Hemoglobin 9.9 g/dL (12.0-16.0); Mean Corp Hgb Conc. 33.9 g/dL (33.0-37.0); Mean Corpuscular Hgb 30.2 pg (27.0-31.0); Mean Platelet Volume 9.4 fL (7.4-10.4); Nucleated Red Blood Cells % 0 %; Platelet Count 287 10^3/uL (130-400); Red Blood Cell Count 3.28 10^6/uL (4.20-5.40); Red Cell Dist. Width 13.6 % (11.5-14.5); White Blood Cell Count 17.5 10^3/uL (4.8-10.8)
[2024-02-06 07:51] LABS: Blood Urea Nitrogen 22 mg/dl (7-17); Calcium 8.3 mg/dl (8.4-10.2); Carbon Dioxide 23 mmol/L (22-30); Chloride 106 mmol/L (98-107); Estimated Creatinine Clearance 38 ml/min; Glucose 102 mg/dl (70-99); Magnesium 1.8 mg/dl (1.6-2.3); Potassium 3.5 mmol/L (3.5-5.1); Sodium 139 mmol/L (135-145); eGFR > 60.00
[2024-02-06] MEDS: LEXAPRO 10 MG PO (08:15)
[2024-02-06] MEDS: TYLENOL 650 MG PO (11:25)
--- NOTE | 2024-02-06 12:26 | W.PN.HOSP.TC ---
Today's Communication/Plan
-
Continue oral vancomycin regimen
Monitor clinically for improvement
Trend CBC and temperature curve
Assessment / Plan
Assessment / Plan
#Suspected C. difficile colitis
-Presented with persistent watery diarrhea over multiple days, recently completed amoxicillin antibiotic course
-Upon arrival to the ED did have leukocytosis with white cell count 22.6, no objective fevers at the time
-Stool studies were sent; norovirus negative, stool cultures pending, C. difficile questionable positive
-C. difficile antigen was positive but toxin negative; indeterminant finding
-With history and her indeterminate finding I do believe this is C. difficile
-She was started on oral vancomycin, white cell count downtrending today
-Still with significant diarrhea as of this morning
Plan
-Continue vancomycin oral 125 mg 4 times daily
-If clinically improving on vancomycin and plan for 10-day course
-Trend daily CBC and monitor temperature curve
-Monitor abdominal exams, stool output
-Consider GI consult if not improving
#Essential HTN
-Home medications include amlodipine 2.5 mg daily
-No known history of hypertensive systemic disease
-Blood pressure currently well-controlled
#Hypothyroidism
-Unclear etiology, home regimen includes levothyroxine 125 mcg daily
-No signs or symptoms of obvious thyroid dysfunction as of now
#Shelby's Esophagus
-Unclear if she has had endoscopic ablation, remains on 40 mg pantoprazole daily
-Should follow-up with gastroenterology and PCP after discharge
#Bladder Cancer
-Diagnosed in 2021, s/p TURBT
-Remains on Keytruda immunotherapy
-Follows with oncology and urology at [place]
#Lumbar Radiculopathy
-Outpatient regimen includes as needed Motrin and Tylenol
-Caution against overuse of NSAIDs
#Anxiety/Depression
-Continued on home Lexapro, appears stable
DVT PPx: Lovenox subQ
Diet: Clear liquids for now
CODE STATUS: DNR
Anticipated Discharge: 24 - 48 hours
Subjective/Interval History
-
Date of Service: February 06, 2024
Seen and examined at the bedside with her daughter in the room. No acute events overnight.
She remains hemodynamically stable, afebrile, on room air.
She states that her diarrhea is slightly better though still present. Question whether chocolate milk, 3 days prior to her symptoms, were related which I do not believe they were. She denies chest pain, shortness of breath, fevers or chills,
nausea or vomiting at this time, bloody stools or melena, urinary issues, paresthesias or weakness.
Objective Data
-
Labs:
Laboratory Results
02/06/24
06:56
WBC 17.5 H
Hgb 9.9 L
Hct 29.2 L
Plt Count 287 D
Sodium 139
Potassium 3.5
Chloride 106
Carbon Dioxide 23
BUN 22 H
Creatinine 0.9
Glucose 102 H
Calcium 8.3 L
Vital Signs:
Vital Signs
Temp Pulse Resp BP Pulse Ox
98.4 F 95 18 108/52 95
02/06/24 11:05 02/06/24 11:05 02/06/24 11:05 02/06/24 11:05 02/06/24 11:05
I&O
02/05/24 02/06/24 02/07/24
06:59 06:59 06:59
Intake Total 750 / 750
Balance 750 / 750
Review of Systems
-
History Source: Patient and Family
All other systems: Reviewed and negative
Physical Exam
-
General: Well Nourished, No Apparent Distress and Comfortable
HEENT: Normocephalic, Atraumatic, Moist Mucous Membranes and Anicteric
Respiratory: Clear to Auscultation and Non Labored Respirations; Negative Wheezes, Rales or Rhonchi
Cardiac: Regular Rhythm and S1/S2; Negative Murmur, Rub, JVD or Gallop
GI: Soft, Nontender, Nondistended and Normal Bowel Sounds
Rectal: Deferred by Provider
Musculoskeletal: No Clubbing, No Cyanosis and No Edema
Skin: Warm, Dry and Normal Turgor; Negative Rash
Neuro: AO x 3, Nonfocal/Grossly Intact and Central Nerve's Intact
Data Reviewed
-
Labs: Labs Reviewed by me, Discussed with Patient and Discussed with Family
--- NOTE | 2024-02-06 16:24 | CM ---
Patient seen at bedside.
IA completed.
Dx: sepsis, 2/2 GI illness
Patient lives at home alone in an apartment no steps to enter.
PLOF: Independent & was driving locally.
DME in home: cane, grab bars & has a fall bracelet.
Denies any food/housing/utilities/transportation insecurities.
No needs identified.
PCP: Lauren Friedman
Pharmacy: [facility]
PLAN: Discharge to home when medically stable. No needs anticipated.
[2024-02-06] MEDS: LOVENOX 40 MG SC (17:37)
[2024-02-07] MEDS: LR 1000 IV (00:11)
[2024-02-07] MEDS: FIRVANQ 125 MG PO ×2 (00:12→06:37)
[2024-02-07 02:59] VITALS: BP 136/55
[2024-02-07] MEDS: SYNTHROID 125 MCG PO (06:37)
[2024-02-07 06:51] VITALS: BMI 27.2
[2024-02-07 07:10] VITALS: BP 136/56
--- NOTE | 2024-02-07 08:49 | W.PN.HOSP.TC ---
Today's Communication/Plan
-
consult ID
consult GI
check CT scan ab/pelvis
Assessment / Plan
Assessment / Plan
pt is an 83 year old female
ongoing diarrhea now with LLQ abdominal pain--Suspected C. difficile colitis (was on amoxicillin for urology procedure)--C. diff antigen positive, toxin negative--started empirically on oral vanco--WBC improved (22K on admission down to 17K)--still
having diarrhea--check CT scan abdomen pelvis--consult GI and ID--cont oral vanco for now--also wants diet advanced
Essential HTN--Home medications include amlodipine 2.5 mg daily--No known history of hypertensive systemic disease
Hypothyroidism--Unclear etiology, home regimen includes levothyroxine 125 mcg daily--No signs or symptoms of obvious thyroid dysfunction as of now
Shelby's Esophagus--Unclear if she has had endoscopic ablation, remains on 40 mg pantoprazole daily--Should follow-up with gastroenterology and PCP after discharge
Bladder Cancer--Diagnosed in 2021, s/p TURBT--Remains on Keytruda immunotherapy--Follows with oncology and urology at [facility]
Lumbar Radiculopathy--Outpatient regimen includes as needed Motrin and Tylenol--Caution against overuse of NSAIDs
Anxiety/Depression--Continued on home Lexapro, appears stable
DVT PPx: Lovenox subQ
CODE STATUS: DNR
Anticipated Discharge: > 48 hours
Subjective/Interval History
-
Date of Service: February 07, 2024
pt still with diarrhea and now LLQ pain
Objective Data
-
Labs:
Laboratory Results
02/07/24
08:03
WBC Pending
Hgb Pending
Hct Pending
Plt Count Pending
Sodium Pending
Potassium Pending
Chloride Pending
Carbon Dioxide Pending
BUN Pending
Creatinine Pending
Glucose Pending
Calcium Pending
Vital Signs:
max temp for 24 hours
02/06/24
22:44
Temp 99.2 F
Vital Signs
Temp Pulse Resp BP Pulse Ox
98.5 F 76 14 136/56 91
02/07/24 02:59 02/07/24 07:10 02/07/24 07:10 02/07/24 07:10 02/07/24 07:10
I&O
02/06/24 02/07/24 02/08/24
06:59 06:59 06:59
Intake Total 750 / 750 1260 / 1260
Balance 750 / 750 1260 / 1260
Review of Systems
-
All other systems: Reviewed and negative
Abdomen/GI: Reports Abdominal Pain and Diarrhea
Physical Exam
-
General: Well Developed, Well Nourished and No Apparent Distress
HEENT: Normocephalic and Atraumatic
Respiratory: Clear to Auscultation; Negative Wheezes or Rhonchi
Cardiac: Regular Rhythm and S1/S2; Negative Murmur
GI: Soft, Nondistended, Normal Bowel Sounds and Tender (LLQ with guarding)
Musculoskeletal: No Clubbing, No Cyanosis and No Edema
Neuro: Awake and Alert
Psych: Calm
[2024-02-07] MEDS: NORVASC 2.5 MG PO (09:04)
[2024-02-07] MEDS: LEXAPRO 10 MG PO (09:05)
[2024-02-07 09:31] LABS: % Basophils 0.3 % (0-2); % Eosinophils 1.3 % (0-6); % Immature Granulocytes 0.6 % (0-0.5); % Lymphocytes 17.2 % (20.5-51.1); % Monocytes 8.4 % (1.7-9.3); % Neutrophils 72.2 % (42.2-75.2); Absolute Eosinophils 0.1 10^3/uL (0-0.7); Absolute Immature Granulocytes 0.1 10^3/uL (0-0.05); Absolute Lymphocytes 1.5 10^3/uL (1.2-3.4); Absolute Monocytes 0.7 10^3/uL (0.1-0.6); Absolute Neutrophils 6.2 10^3/uL (1.4-6.5); Hemoglobin 9.6 g/dL (12.0-16.0); Mean Corp Hgb Conc. 34.3 g/dL (33.0-37.0); Mean Corpuscular Hgb 31.1 pg (27.0-31.0); Mean Corpuscular Volume 90.6 fL (81.0-99.0); Nucleated Red Blood Cells % 0 %; Platelet Count 257 10^3/uL (130-400); Red Blood Cell Count 3.09 10^6/uL (4.20-5.40); Red Cell Dist. Width 13.5 % (11.5-14.5); White Blood Cell Count 8.6 10^3/uL (4.8-10.8)
[2024-02-07 09:47] LABS: Blood Urea Nitrogen 11 mg/dl (7-17); Calcium 8.3 mg/dl (8.4-10.2); Carbon Dioxide 24 mmol/L (22-30); Chloride 106 mmol/L (98-107); Estimated Creatinine Clearance 64 ml/min; Glucose 85 mg/dl (70-99); Potassium 3.4 mmol/L (3.5-5.1); Sodium 139 mmol/L (135-145); eGFR > 60.00
[2024-02-07] MEDS: OMNIPAQUE 50 ML PO (09:58)
[2024-02-07] MEDS: NSS 1000 IV (09:58)
[2024-02-07 11:10] VITALS: BP 125/49
[2024-02-07] MEDS: FIRVANQ PO (11:20)
--- NOTE | 2024-02-07 12:48 | CON.ID ---
Consultation
-
Date/Time Consultation Requested: February 07, 2024 0848
Date/Time Consultation Performed: February 07, 2024 1300
Requesting Provider: Dr. Karina Gerardo
Performing Provider: Dr. Christina Hernandez
Reason for Consultation: Diarrhea not responding to oral vancomycin
Chief Complaint / Past History
Chief Complaint
Diarrhea
History of Present Illness
83-year-old female with history of bladder cancer status post TURBT in 2021, cancer involves the right ureter status post stent placement, currently on Keytruda every 3 weeks who presented to the hospital February 04 due to profuse diarrhea. She
reports receiving 7 days of antibiotic, started 2 days prior to right ureter stent change and bladder biopsy and completed the antibiotic this Friday 02/02. On Friday she developed nausea vomiting and diarrhea. Diarrhea was constant. She then
developed abdominal cramping and pain. She came to the ER on February 04. White count was 22.6. Temperature 100. She was started on oral vancomycin 125 mg 4 times a day. Stool C. difficile antigen positive, toxin negative, norovirus negative,
culture pending. CAT scan today shows colitis involving sigmoid and distal descending colon. She is not refused the oral vancomycin this morning since she was told she does not have C. difficile. She continues to have diarrhea without
improvement. Vomiting has resolved. She feels cold. No history of C. difficile. She eats home-cooked meals. Did not eat out recently. No ingesting [employer] products.
Past History
Additional Past Medical History:
Hypertension
Hypothyroidism
Bladder cancer status post TURBT 2021, + right ureter stent, on Keytruda [id number]
Anxiety/depression
Lumbar radiculopathy
Shelby's esophagus
Cholecystectomy
Bilateral knee replacements
Right MANJIT
Allergy History:
hydrocodone [From Vicodin] Allergy (Verified 02/05/24 19:18)
made me loopy
Sulfa (Sulfonamide Antibiotics) Allergy (Verified 02/05/24 19:18)
Hives/swelling/itching
Medications Reviewed: Yes
Current Antibiotics:
PO Vancomycin
Social History
Tobacco: Non-Smoker
Alcohol: None
Drug: None
Living: Alone
Family History
Family History: Not Pertinent
Review of Systems
Review of Systems
General: Fever, Chills and Change in Appetite
HEENT: Negative Sinus Problems, Headache or Pharyngitis
Cardiovascular: Negative Chest Pain or Dyspnea
Respiratory: Negative Dyspnea or Cough
Genital / Urological: Negative Dysuria or Flank Pain
Endocrine: Weakness
Neurological: Negative Headache
All systems: All other systems were reviewed and were negative
Vital Signs
Temp Pulse Resp BP Pulse Ox
98.9 F 71 14 125/49 97
02/07/24 11:10 02/07/24 11:10 02/07/24 11:10 02/07/24 11:10 02/07/24 11:10
Physical Exam
Physical Exam
Constitutional: No Acute Distress
Eyes: No Conjunctival Hemorrhage and Sclera Anicteric
Cardiovascular: Regular Rate and S1/S2
Pulmonary: Clear
Gastrointestinal: Soft, Tender (mild diffuse), Distended (mild) and Decreased Bowel Sounds
Genito-Urinary: Negative CVA Tenderness
Extremities: Negative Edema
Neurological: AO x 3
Lab / Diagnostic Study Results
02/07/24 08:03
02/07/24 08:03
Abs Immat Gran (auto) 0.1 10^3/uL (0-0.05) H 02/07/24 08:03
Absolute Neuts (auto) 6.2 10^3/uL (1.4-6.5) 02/07/24 08:03
Absolute Lymphs (auto) 1.5 10^3/uL (1.2-3.4) 02/07/24 08:03
Absolute Monos (auto) 0.7 10^3/uL (0.1-0.6) H 02/07/24 08:03
Absolute Basos (auto) 0.0 10^3/uL (0-0.2) 02/07/24 08:03
Immature Gran % 0.6 % (0-0.5) H 02/07/24 08:03
Neutrophils % 72.2 % (42.2-75.2) 02/07/24 08:03
Lymphocytes % 17.2 % (20.5-51.1) L 02/07/24 08:03
Monocytes % 8.4 % (1.7-9.3) 02/07/24 08:03
Eosinophils % 1.3 % (0-6) 02/07/24 08:03
Basophils % 0.3 % (0-2) 02/07/24 08:03
Lactic Acid 1.0 mmol/L (0.7-2.0) 02/06/24 01:26
Microbiology Results
Micro:
02/06/24 05:27 Salmonella/Shigella Culture - Preliminary
Feces/Stool Culture in Progress
Campylobacter Culture - Preliminary
Culture in Progress
Shiga Toxin Test - Pending
02/06/24 05:27 - Final
Feces/Stool Negative for Norovirus GI and GII.
02/06/24 05:27 C. difficile GDH Antigen & Toxins - Final
Feces/Stool C. difficile antigen positive, toxin negative.
Clostridium difficile present, but toxin not detected.
Patient may be a carrier, colonized with nontoxinogenic
strain or the level of toxin in sample is below detection
limits. This information should be used in conjunction with
the patient's clinical history.
02/05/24 CXR: No acute cardiopulmonary abnormality.
02/07/24 CT a/p: There is colitis with moderate bowel wall thickening in mild pericolonic inflammatory stranding involving an approximately 15-20 cm in length segment of sigmoid and distal descending colon.
Assessment / Plan
# C. diff colitis
- C. diff Ag+, toxin negative.
However under clinical context, suspect C. diff infection: recent abx exposure, leukocytosis, severe diarrhea.
- CT a/p colitis distal descending and sigmoid. No megacolon.
- DC po Vancomycin.
- Start fidaxomicin 200mg po bid.
- Follow clinically.
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
Hypertension
Hypothyroidism
Bladder cancer status post TURBT 2021, + right ureter stent, on Keytruda [id number]
Anxiety/depression
Lumbar radiculopathy
Shelby's esophagus
Cholecystectomy
Bilateral knee replacements
Right MANJIT
--- NOTE | 2024-02-07 13:48 | CON.GI ---
Consultation
-
Date/Time Consultation Requested: 02/07/2024
Date/Time Consultation Performed: 02/07/2024
Performing Provider: Serafin Waller
Reason for Consultation: diarrhea, abdominal pain
Medical History
Chief Complaint / HPI
Chief Complaint: diarrhea, abdominal pain
History of Present Illness:
Patient is a 83-year-old female with bladder cancer s/p TURBT in 2021 and on Keytruda infusions who presented with vomiting and diarrhea. Her vomiting and diarrhea started 3 days ago sudden onset. Denies sick contacts. Her vomiting stopped after
about 24 hours but her diarrhea continued. She feels she is going more than 10 times per day. No blood in her stool. She had taken short course of amoxicillin about 3 days ago for her urologic procedure. She had low-grade fever on admission, and
started having lower abdominal pain after admission. Keytruda infusion started about 2 to 3 months ago.
Past Medical History
Past Medical History: HTN and Other
Past Surgical History: Other
Social History
Tobacco: Non-Smoker
Alcohol: None
Allergies / Home Medications
Allergy/AdvReac Type Severity Reaction Status Date / Time
hydrocodone [From Vicodin] Allergy made me Verified 02/05/24 19:18
loopy
Sulfa (Sulfonamide Allergy Hives/swell Verified 02/05/24 19:18
Antibiotics) ing/itching
�Medication �Instructions �Recorded
cholecalciferol (vitamin D3) 50 2,000 units PO DAILY Supplement 05/09/21
mcg (2,000 unit) tablet
efinaconazole 10 % topical 4 ml TP DAILY PRN Infection 05/09/21
solution with applicator (Jublia)
levothyroxine 125 mcg tablet 125 mcg PO DAILY Thyroid 05/09/21
multivitamin with folic acid 400 1 tab PO DAILY Supplement 05/09/21
mcg tablet (Tab-A-Cesario)
pantoprazole 40 mg tablet,delayed 40 mg PO DAILY Gastrointestinal 05/09/21
release issue
amlodipine 2.5 mg tablet 2.5 mg PO DAILY Blood pressure ##0 06/05/21
calcium carbonate 600 mg-vitamin 1 tab PO BID Supplement 01/09/22
D3 5 mcg (200 unit) tablet
Tylenol Ex Str Arthritis Pain 1,000 mg PO PRN PRN discomfort 03/01/22
Motrin 400 mg PO 4-8XD Pain 02/05/24
Vitamin B-12 2.4 mcg PO DAILY Supplement 02/05/24
escitalopram oxalate 10 mg PO DAILY Mental 02/05/24
Health/Anxiety
Review of Systems
Vital Signs
Temp Pulse Resp BP Pulse Ox
98.9 F 71 14 125/49 97
02/07/24 11:10 02/07/24 11:10 02/07/24 11:10 02/07/24 11:10 02/07/24 11:10
Physical Exam
Exam
General: Well Developed and Well Nourished
HEENT: Normocephalic
Respiratory: Clear
Cardiac: S1/S2
GI: Soft, Non Distended and Tender (diffusely tender to palpation)
Results
WBC 8.6 10^3/uL (4.8-10.8) 02/07/24 08:03
Hgb 9.6 g/dL (12.0-16.0) L 02/07/24 08:03
Hct 28.0 % (37.0-47.0) L 02/07/24 08:03
MCV 90.6 fL (81.0-99.0) 02/07/24 08:03
Plt Count 257 10^3/uL (130-400) 02/07/24 08:03
Absolute Neuts (auto) 6.2 10^3/uL (1.4-6.5) 02/07/24 08:03
Sodium 139 mmol/L (135-145) 02/07/24 08:03
Potassium 3.4 mmol/L (3.5-5.1) L 02/07/24 08:03
Chloride 106 mmol/L (98-107) 02/07/24 08:03
Carbon Dioxide 24 mmol/L (22-30) 02/07/24 08:03
BUN 11 mg/dl (7-17) 02/07/24 08:03
Creatinine 0.6 mg/dL (0.6-1.0) 02/07/24 08:03
Calcium 8.3 mg/dl (8.4-10.2) L 02/07/24 08:03
Total Bilirubin 0.8 mg/dl (0.2-1.3) 02/05/24 19:26
AST 29 U/L (14-36) 02/05/24 19:26
ALT 19 U/L (0-35) 02/05/24 19:26
Alkaline Phosphatase 128 U/L (38-126) H 02/05/24 19:26
Lipase 61 U/L (23-300) 02/05/24 19:26
Diagnostic Image Results:
Prior GI Procedures:
EGD:
Colonoscopy:
Assessment / Plan
-
83-year-old female with history of bladder CA s/p TURBT on 2021 and Keytruda infusions p/w vomiting and diarrhea.
Impression / Rec:
1. Vomiting and diarrhea -will her vomiting and diarrhea started 3 days ago. Vomiting stopped after about 24 hours. She started short course of amoxicillin 3 days ago for her urologic procedure. Denies sick contacts. She had low-grade fever on
admission with significant leukocytosis (22K). She was started on empirical oral vanco, and stool studies showed positive C. difficile antigen but negative toxin. She had CT abdomen today which showed colitis in descending/sigmoid colon.
Given low-grade fever, leukocytosis, despite the negative toxin C. difficile colitis remains in the differential and agree with continuing oral vancomycin for empirical treatment. She is also on immune checkpoint inhibitor (Keytruda) which can
cause immune checkpoint inhibitor colitis. If her diarrhea does not improve despite few days of oral Vanco, then would recommend flex sig endoscopy for further evaluation. Will follow.
Total Time Spent with Patient (in minutes): 55
-
-
Thank you for consultation and allowing me to participate in the patient's care. 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
[2024-02-07] MEDS: DIFICID 200 MG PO ×2 (15:12→20:34)
[2024-02-07 15:15] VITALS: BP 129/75
[2024-02-07] MEDS: LOVENOX 40 MG SC (17:02)
[2024-02-07 19:05] VITALS: BP 120/55
[2024-02-07 23:48] VITALS: BP 124/53
[2024-02-08] MEDS: TYLENOL 650 MG PO ×3 (01:58→20:21)
[2024-02-08] MEDS: NSS 1000 IV (02:28)
[2024-02-08 03:05] VITALS: BP 134/59
[2024-02-08] MEDS: SYNTHROID 125 MCG PO (04:49)
[2024-02-08 06:00] VITALS: BMI 26.7
[2024-02-08 07:10] VITALS: BP 134/60
--- NOTE | 2024-02-08 08:40 | W.PN.HOSP.TC ---
Today's Communication/Plan
-
possible d/c home tomorrow if diarrhea improved
apprec all consultants
Assessment / Plan
Assessment / Plan
pt is an 83 year old female
ongoing diarrhea now with LLQ abdominal pain--Suspected C. difficile colitis (was on amoxicillin for urology procedure)--despite C. diff antigen positive, toxin negative, still believe so--diarrhea improving with Dificid---WBC improved (22K on
admission down to 8.6 with 9/1 AM labs pending)--- CT scan abdomen pelvis with colitis--apprec GI and ID--tolerating diet--stop IVF--transfer to med/surg
Essential HTN--Home medications include amlodipine 2.5 mg daily--No known history of hypertensive systemic disease
Hypothyroidism--Unclear etiology, home regimen includes levothyroxine 125 mcg daily--No signs or symptoms of obvious thyroid dysfunction as of now
Shelby's Esophagus--Unclear if she has had endoscopic ablation, remains on 40 mg pantoprazole daily--Should follow-up with gastroenterology and PCP after discharge
Bladder Cancer--Diagnosed in 2021, s/p TURBT--Remains on Keytruda immunotherapy--Follows with oncology and urology at [place]
Lumbar Radiculopathy--Outpatient regimen includes as needed Motrin and Tylenol--Caution against overuse of NSAIDs
Anxiety/Depression--Continued on home Lexapro, appears stable
DVT PPx: Lovenox subQ
CODE STATUS: DNR
Anticipated Discharge: 24 - 48 hours
Subjective/Interval History
-
Date of Service: February 08, 2024
diarrhea seems to be improving--no accidents overnight
Objective Data
-
Labs:
Laboratory Results
02/08/24
07:39
WBC Pending
Hgb Pending
Hct Pending
Plt Count Pending
Sodium Pending
Potassium Pending
Chloride Pending
Carbon Dioxide Pending
BUN Pending
Creatinine Pending
Glucose Pending
Calcium Pending
Total Bilirubin Pending
AST Pending
ALT Pending
Alkaline Phosphatase Pending
Vital Signs:
max temp for 24 hours
02/07/24
23:48
Temp 98.6 F
Vital Signs
Temp Pulse Resp BP Pulse Ox
97.8 F 68 14 134/60 96
02/08/24 07:10 02/08/24 07:10 02/08/24 07:10 02/08/24 07:10 02/08/24 07:10
I&O
02/07/24 02/08/24 02/09/24
06:59 06:59 06:59
Intake Total 1260 / 1260 4360 / 4360
Balance 1260 / 1260 4360 / 4360
Review of Systems
-
All other systems: Reviewed and negative
Abdomen/GI: Denies Abdominal Pain
Physical Exam
-
General: Well Developed, Well Nourished and No Apparent Distress
HEENT: Normocephalic and Atraumatic
Respiratory: Clear to Auscultation; Negative Wheezes or Rhonchi
Cardiac: Regular Rhythm and S1/S2; Negative Murmur
GI: Soft, Nontender, Nondistended and Normal Bowel Sounds
Musculoskeletal: No Clubbing and No Cyanosis; Negative No Edema (1+ LE edema bilaterally)
Skin: Warm
Neuro: Awake
[2024-02-08] MEDS: DIFICID 200 MG PO ×2 (08:57→20:01)
[2024-02-08] MEDS: NORVASC 2.5 MG PO (08:57)
[2024-02-08] MEDS: LEXAPRO 10 MG PO (09:00)
[2024-02-08] MEDS: NSS IV (09:06)
[2024-02-08 09:38] LABS: Hematocrit 27.4 % (37.0-47.0); Hemoglobin 9.4 g/dL (12.0-16.0); Mean Corp Hgb Conc. 34.3 g/dL (33.0-37.0); Mean Corpuscular Hgb 30.5 pg (27.0-31.0); Mean Platelet Volume 9.8 fL (7.4-10.4); Platelet Count 276 10^3/uL (130-400); Red Blood Cell Count 3.08 10^6/uL (4.20-5.40); Red Cell Dist. Width 13.4 % (11.5-14.5); White Blood Cell Count 5.7 10^3/uL (4.8-10.8)
[2024-02-08 10:09] LABS: ALT (SGPT) 13 U/L (0-35); AST (SGOT) 22 U/L (14-36); Albumin 2.8 g/dl (3.5-5.0); Alkaline Phosphatase 93 U/L (38-126); Blood Urea Nitrogen 8 mg/dl (7-17); Calcium 8.1 mg/dl (8.4-10.2); Carbon Dioxide 25 mmol/L (22-30); Chloride 109 mmol/L (98-107); Estimated Creatinine Clearance 64 ml/min; Glucose 86 mg/dl (70-99); Magnesium 1.7 mg/dl (1.6-2.3); Potassium 3.4 mmol/L (3.5-5.1); Sodium 142 mmol/L (135-145); Total Bilirubin 0.4 mg/dl (0.2-1.3); Total Protein 5.5 g/dl (6.3-8.2); eGFR > 60.00
[2024-02-08] MEDS: KCL 40 MEQ PO (11:42)
--- NOTE | 2024-02-08 12:39 | W.PN.GI.CBS2 ---
Today's Communication / Plan
-
continue with dificid, GI s/o
Assessment / Plan
-
83-year-old female with history of bladder CA s/p TURBT on 2021 and Keytruda infusions p/w vomiting and diarrhea.
Impression / Rec:
1. Vomiting and diarrhea -will her vomiting and diarrhea started 3 days ago. Vomiting stopped after about 24 hours. She started short course of amoxicillin 3 days ago for her urologic procedure. Denies sick contacts. She had low-grade fever on
admission with significant leukocytosis (22K). She was started on empirical oral vanco, and stool studies showed positive C. difficile antigen but negative toxin. She had CT abdomen today which showed colitis in descending/sigmoid colon.
Given low-grade fever, leukocytosis, despite the negative toxin C. difficile colitis remains in the differential and agree with continuing oral vancomycin for empirical treatment. She is also on immune checkpoint inhibitor (Keytruda) which can
cause immune checkpoint inhibitor colitis. If her diarrhea does not improve despite few days of oral Vanco, then would recommend flex sig endoscopy for further evaluation. Will follow.
There is improving with Dificid which is suggestive of C. difficile associated diarrhea. Complete the course of Dificid. GI will sign off.
Total Time Spent with Patient (in minutes): 35
Subjective
Subjective
Date of Service: February 08, 2024
Diarrhea improving
Objective
Data Reviewed
Laboratory Data:
Laboratory Results
02/08/24 07:39
02/08/24 07:39
Laboratory Results
Magnesium 1.7 mg/dl (1.6-2.3) 02/08/24 07:39
Total Bilirubin 0.4 mg/dl (0.2-1.3) 02/08/24 07:39
AST 22 U/L (14-36) 02/08/24 07:39
ALT 13 U/L (0-35) 02/08/24 07:39
Alkaline Phosphatase 93 U/L (38-126) 02/08/24 07:39
Lipase 61 U/L (23-300) 02/05/24 19:26
Vital Signs and I&O:
Vital Signs
Temp Pulse Resp BP Pulse Ox
97.8 F 68 14 134/60 96
02/08/24 07:10 02/08/24 07:10 02/08/24 07:10 02/08/24 07:10 02/08/24 08:00
I&O
02/07/24 02/08/24 02/09/24
06:59 06:59 06:59
Intake Total 1260 / 1260 4360 / 4360
Balance 1260 / 1260 4360 / 4360
--- NOTE | 2024-02-08 14:38 | W.PN.ID1 ---
Date of Service
Date of Service: February 08, 2024
Today's Communication
- Continue fidaxomicin 200mg po bid x 10 days.
- Need to check for insurance coverage and availability prior to discharge.
Assessment / Plan
# C. diff colitis - improving
- C. diff Ag+, toxin negative.
However under clinical context, suspect C. diff infection: recent abx exposure, leukocytosis, severe diarrhea.
- CT a/p colitis distal descending and sigmoid. No megacolon.
- Continue fidaxomicin 200mg po bid x 10 days.
- Need to check for insurance coverage and availability prior to discharge.
# Conditions JACKAROO
Hypertension
Hypothyroidism
Bladder cancer status post TURBT 2021, + right ureter stent, on Keytruda [id number]
Anxiety/depression
Lumbar radiculopathy
Shelby's esophagus
Cholecystectomy
Bilateral knee replacements
Right MANJIT
Chief Complaint
-: Other (Diarrhea)
Subjective / Review of Systems
Feels much improvement.
Diarrhea decreasing - had 2 this am with pieces of stool.
Tolerating diet.
Vital Signs / Physical Exam
Vital Signs
Vital Signs
Temp Pulse Resp BP Pulse Ox
97.8 F 68 14 134/60 96
02/08/24 07:10 02/08/24 07:10 02/08/24 07:10 02/08/24 07:10 02/08/24 08:00
Physical Exam
Constitutional: No Acute Distress
Cardiovascular: Regular Rate and S1/S2
Pulmonary: Clear
Gastrointestinal: Soft, Non Tender and Distended (mild)
Objective Data
Lab Data
Lab Results
02/08/24 07:39
02/08/24 07:39
Estimated Creat Clear 64 ml/min 02/08/24 07:39
Lactic Acid 1.0 mmol/L (0.7-2.0) 02/06/24 01:26
Total Bilirubin 0.4 mg/dl (0.2-1.3) 02/08/24 07:39
AST 22 U/L (14-36) 02/08/24 07:39
ALT 13 U/L (0-35) 02/08/24 07:39
Alkaline Phosphatase 93 U/L (38-126) 02/08/24 07:39
Most recent labs reviewed.
Micro Results:
02/06/24 05:27 Salmonella/Shigella Culture - Final
Feces/Stool No Salmonella, Shigella, Aeromonas or Plesiomonas species
isolated.
Campylobacter Culture - Final
No Campylobacter species isolated.
Shiga Toxin Test - Final
No E. coli Shiga Toxin 1 or 2 detected.
02/06/24 05:27 - Final
Feces/Stool Negative for Norovirus GI and GII.
02/06/24 05:27 C. difficile GDH Antigen & Toxins - Final
Feces/Stool C. difficile antigen positive, toxin negative.
Clostridium difficile present, but toxin not detected.
Patient may be a carrier, colonized with nontoxinogenic
strain or the level of toxin in sample is below detection
limits. This information should be used in conjunction with
the patient's clinical history.
02/05/24 CXR: No acute cardiopulmonary abnormality.
02/07/24 CT a/p: There is colitis with moderate bowel wall thickening in mild pericolonic inflammatory stranding involving an approximately 15-20 cm in length segment of sigmoid and distal descending colon.
[2024-02-08 15:15] VITALS: BP 135/67
--- NOTE | 2024-02-08 16:09 | CM ---
Reviewed the chart notes and spoke with the patient at the bedside. IMM reviewed. CM continues to be available to patient/family and is monitoring medical plan for needs at discharge.
Plan: Discharge to home when medically stable.
[2024-02-08] MEDS: LOVENOX 40 MG SC (17:49)
[2024-02-08 23:38] VITALS: BP 133/65
[2024-02-09] MEDS: TYLENOL 650 MG PO ×3 (03:28→19:45)
[2024-02-09] MEDS: SYNTHROID 125 MCG PO (03:29)
[2024-02-09 05:38] VITALS: BMI 26.7
--- NOTE | 2024-02-09 06:50 | W.PN.HOSP.TC ---
Today's Communication/Plan
-
cont dificid
monitor symptoms
pain control
Assessment / Plan
Assessment / Plan
Physical Exam
General: Well Developed, Well Nourished and No Apparent Distress
HEENT: Normocephalic and Atraumatic
Respiratory: Clear to Auscultation; Negative Wheezes or Rhonchi
Cardiac: Regular Rhythm and S1/S2; Negative Murmur
GI: Soft, Nontender, Nondistended and Normal Bowel Sounds
Musculoskeletal: No Clubbing and No Cyanosis; Negative No Edema (1+ LE edema bilaterally)
Skin: Warm
Neuro: Awake
83F HTN Lumbar Radiculopathy Ian's esophagus hypothyroidism Bladder Ca s/p TURBT on Keytruda
ongoing diarrhea now with LLQ abdominal pain--Suspected C. difficile colitis (was on amoxicillin for urology procedure)--despite C. diff antigen positive, toxin negative, still believe so--diarrhea improving with Dificid---WBC improved (22K on
admission down to 8.6 with 9/1 AM labs pending)--- CT scan abdomen pelvis with colitis--apprec GI and ID--tolerating diet--stop IVF--transferred to med/surg
HTN--
cont home amlodipine 2.5 mg daily
Hypothyroidism
cont home levothyroxine 125 mcg daily
Shelby's Esophagus--Unclear if she has had endoscopic ablation, remains on 40 mg pantoprazole daily--Should follow-up with gastroenterology and PCP after discharge
Bladder Cancer--Diagnosed in 2021, s/p TURBT--Remains on Keytruda immunotherapy--Follows with oncology and urology at [place]
Lumbar Radiculopathy--Outpatient regimen includes as needed Motrin and Tylenol--Caution against overuse of NSAIDs. Lidocaine patch applied
Anxiety/Depression--Continued on home Lexapro, appears stable
DVT PPx: Lovenox subQ
CODE STATUS: DNR
I spent a total of 40 minutes with the patient or on the floor. More than 50% of this time involved counseling and coordination of care.
Anticipated Discharge: Within 24 hours
Subjective/Interval History
-
Date of Service: February 09, 2024
Continues to report improvement in symptoms, bowel movements becoming more firmer though remains loose/liquid. Abd pain since resolved, some residual tenderness remains.
Objective Data
-
Vital Signs:
Vital Signs
Temp Pulse Resp BP Pulse Ox
98.7 F 91 16 133/65 96
02/08/24 23:38 02/08/24 23:38 02/08/24 23:38 02/08/24 23:38 02/08/24 23:38
I&O
02/07/24 02/08/24 02/09/24
06:59 06:59 06:59
Intake Total 1260 / 1260 4360 / 4360 900 / 900
Balance 1260 / 1260 4360 / 4360 900 / 900
[2024-02-09 07:10] VITALS: BP 138/62
[2024-02-09] MEDS: DIFICID 200 MG PO ×2 (08:19→19:46)
[2024-02-09] MEDS: LEXAPRO 10 MG PO (08:19)
[2024-02-09] MEDS: NORVASC 2.5 MG PO (08:19)
[2024-02-09] MEDS: KCL 40 MEQ PO (10:55)
--- NOTE | 2024-02-09 12:21 | PTCARENOTE ---
pt c/o lower back pain and neck pain. Tylenol given with no relief. Pain now 10/16. Dr. Shipman notified. Pt states at home advil helps with her pain and also lidocaine patches.
[2024-02-09] MEDS: LIDOCAINE 4% PATCH 1 PATCH TOPICAL ×2 (12:37)
[2024-02-09 15:21] VITALS: BP 118/60
--- NOTE | 2024-02-09 16:30 | W.PN.ID1 ---
Date of Service
Date of Service: February 09, 2024
Today's Communication
- Continue fidaxomicin 200mg po bid x 10 days through 02/16/24
- Need to check for insurance coverage and availability prior to discharge.
Assessment / Plan
# C. diff colitis - improving
- C. diff Ag+, toxin negative.
Under clinical context, suspect C. diff infection: recent abx exposure, leukocytosis, severe diarrhea.
- CT a/p colitis distal descending and sigmoid. No megacolon.
- Continue fidaxomicin 200mg po bid x 10 days through 02/16/24
- Need to check for insurance coverage and availability prior to discharge.
# Conditions [employer]
Hypertension
Hypothyroidism
Bladder cancer status post TURBT 2021, + right ureter stent, on Keytruda [id number]
Anxiety/depression
Lumbar radiculopathy
Shelby's esophagus
Cholecystectomy
Bilateral knee replacements
Right MANJIT
Chief Complaint
-: Other (Diarrhea)
Subjective / Review of Systems
Stool now loose, less frequent. Abd pain resolving.
Vital Signs / Physical Exam
Vital Signs
Vital Signs
Temp Pulse Resp BP Pulse Ox
98.6 F 91 16 118/60 96
02/09/24 15:21 02/09/24 15:21 02/09/24 15:21 02/09/24 15:21 02/09/24 15:21
Physical Exam
Constitutional: No Acute Distress and Comfortable
Pulmonary: Clear
Gastrointestinal: Soft, Non Tender and Non Distended
Objective Data
Lab Data
Lab Results
02/08/24 07:39
02/08/24 07:39
Estimated Creat Clear 64 ml/min 02/08/24 07:39
Lactic Acid 1.0 mmol/L (0.7-2.0) 02/06/24 01:26
Total Bilirubin 0.4 mg/dl (0.2-1.3) 02/08/24 07:39
AST 22 U/L (14-36) 02/08/24 07:39
ALT 13 U/L (0-35) 02/08/24 07:39
Alkaline Phosphatase 93 U/L (38-126) 02/08/24 07:39
Most recent labs reviewed.
Micro Results:
02/06/24 05:27 Salmonella/Shigella Culture - Final
Feces/Stool No Salmonella, Shigella, Aeromonas or Plesiomonas species
isolated.
Campylobacter Culture - Final
No Campylobacter species isolated.
Shiga Toxin Test - Final
No E. coli Shiga Toxin 1 or 2 detected.
02/06/24 05:27 - Final
Feces/Stool Negative for Norovirus GI and GII.
02/06/24 05:27 C. difficile GDH Antigen & Toxins - Final
Feces/Stool C. difficile antigen positive, toxin negative.
Clostridium difficile present, but toxin not detected.
Patient may be a carrier, colonized with nontoxinogenic
strain or the level of toxin in sample is below detection
limits. This information should be used in conjunction with
the patient's clinical history.
02/05/24 CXR: No acute cardiopulmonary abnormality.
02/07/24 CT a/p: There is colitis with moderate bowel wall thickening in mild pericolonic inflammatory stranding involving an approximately 15-20 cm in length segment of sigmoid and distal descending colon.
[2024-02-09] MEDS: LOVENOX 40 MG SC (17:42)
[2024-02-09] MEDS: KCL 20 MEQ PO (19:45)
[2024-02-09 23:27] VITALS: BP 134/57
[2024-02-10] MEDS: SYNTHROID 125 MCG PO (06:04)
[2024-02-10 06:05] VITALS: BMI 26.7
[2024-02-10] MEDS: TYLENOL 650 MG PO ×2 (06:07→20:20)
[2024-02-10 07:10] VITALS: BP 126/60
--- NOTE | 2024-02-10 07:24 | W.PN.HOSP.TC ---
Today's Communication/Plan
-
Cont Dificid
Oncology eval
Assessment / Plan
Assessment / Plan
Physical Exam
General: Well Developed, Well Nourished and No Apparent Distress
HEENT: Normocephalic and Atraumatic
Respiratory: Clear to Auscultation; Negative Wheezes or Rhonchi
Cardiac: Regular Rhythm and S1/S2; Negative Murmur
GI: Soft, Nontender, Nondistended and Normal Bowel Sounds
Musculoskeletal: No Clubbing and No Cyanosis; Negative No Edema (1+ LE edema bilaterally)
Skin: Warm
Neuro: Awake
83F HTN Lumbar Radiculopathy Ian's esophagus hypothyroidism Bladder Ca s/p TURBT on Keytruda
ongoing diarrhea now with LLQ abdominal pain--Suspected C. difficile colitis (was on amoxicillin for urology procedure)--despite C. diff antigen positive, toxin negative, still believe so--diarrhea improving with Dificid---WBC improved (22K on
admission down to 8.6 with 9/1 AM labs pending)--- CT scan abdomen pelvis with colitis--apprec GI and ID--tolerating diet--stop IVF--transferred to med/surg
-oncology eval given concern remains possible side effect Keytruda
-confirmed with pharmacy patient has copay 60 dollars for prescribed dificid treatment.
HTN--
cont home amlodipine 2.5 mg daily
Hypothyroidism
cont home levothyroxine 125 mcg daily
Shelby's Esophagus--Unclear if she has had endoscopic ablation, remains on 40 mg pantoprazole daily--Should follow-up with gastroenterology and PCP after discharge
Bladder Cancer--Diagnosed in 2021, s/p TURBT--Remains on Keytruda immunotherapy--Follows with oncology Dr Jonathan [facility] [correction to prior documentation] and urology at [place]
Lumbar Radiculopathy--Outpatient regimen includes as needed Motrin and Tylenol--Caution against overuse of NSAIDs. Lidocaine patch applied
Anxiety/Depression--Continued on home Lexapro, appears stable
DVT PPx: Lovenox subQ
CODE STATUS: DNR
I spent a total of 40 minutes with the patient or on the floor. More than 50% of this time involved counseling and coordination of care.
Anticipated Discharge: 24 - 48 hours
Subjective/Interval History
-
Date of Service: February 10, 2024
Objective Data
-
Labs:
Laboratory Results
02/10/24
07:01
WBC Pending
Hgb Pending
Hct Pending
Plt Count Pending
Sodium Pending
Potassium Pending
Chloride Pending
Carbon Dioxide Pending
BUN Pending
Creatinine Pending
Glucose Pending
Calcium Pending
Vital Signs:
Vital Signs
Temp Pulse Resp BP Pulse Ox
99.1 F 88 16 134/57 96
02/09/24 23:27 02/09/24 23:27 02/09/24 23:27 02/09/24 23:27 02/09/24 23:27
I&O
02/09/24 02/10/24 02/11/24
06:59 06:59 06:59
Intake Total 900 / 900 1350 / 1350
Balance 900 / 900 1350 / 1350
[2024-02-10] MEDS: DIFICID 200 MG PO ×2 (07:42→20:21)
[2024-02-10] MEDS: LEXAPRO 10 MG PO (07:42)
[2024-02-10] MEDS: KCL 20 MEQ PO ×2 (07:42→20:21)
[2024-02-10] MEDS: NORVASC 2.5 MG PO (07:43)
[2024-02-10] MEDS: LIDOCAINE 4% PATCH 1 PATCH TOPICAL ×2 (07:43)
[2024-02-10 08:45] LABS: Hematocrit 27.8 % (37.0-47.0); Hemoglobin 9.4 g/dL (12.0-16.0); Mean Corp Hgb Conc. 33.8 g/dL (33.0-37.0); Mean Corpuscular Volume 91.7 fL (81.0-99.0); Mean Platelet Volume 9.8 fL (7.4-10.4); Platelet Count 302 10^3/uL (130-400); Red Blood Cell Count 3.03 10^6/uL (4.20-5.40); Red Cell Dist. Width 13.3 % (11.5-14.5); White Blood Cell Count 5.3 10^3/uL (4.8-10.8)
[2024-02-10 09:08] LABS: Blood Urea Nitrogen 10 mg/dl (7-17); Calcium 8.6 mg/dl (8.4-10.2); Carbon Dioxide 23 mmol/L (22-30); Chloride 109 mmol/L (98-107); Estimated Creatinine Clearance 64 ml/min; Glucose 86 mg/dl (70-99); Magnesium 1.6 mg/dl (1.6-2.3); Potassium 4.1 mmol/L (3.5-5.1); Sodium 143 mmol/L (135-145); eGFR > 60.00
--- NOTE | 2024-02-10 10:14 | W.PN.ID1 ---
Date of Service
Date of Service: February 10, 2024
Today's Communication
Continue fidaxomicin 200mg po bid x 10 days through 02/16/24
Assessment / Plan
# C. diff colitis - improving
- C. diff Ag+, toxin negative.
Under clinical context, suspect C. diff infection: recent abx exposure, leukocytosis, severe diarrhea.
- CT a/p colitis distal descending and sigmoid. No megacolon.
- Continue fidaxomicin 200mg po bid x 10 days through 02/16/24
- Hospitalist checking for insurance coverage and availability prior to discharge.
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
Hypertension
Hypothyroidism
Bladder cancer status post TURBT 2021, + right ureter stent, on Keytruda [id number]
Anxiety/depression
Lumbar radiculopathy
Shelby's esophagus
Cholecystectomy
Bilateral knee replacements
Right MANJIT
Chief Complaint
-: Other (Diarrhea)
Subjective / Review of Systems
Stool loose to soft. Feeling better.
Vital Signs / Physical Exam
Vital Signs
Vital Signs
Temp Pulse Resp BP Pulse Ox
98.5 F 83 16 132/60 96
02/10/24 07:10 02/10/24 07:43 02/10/24 07:10 02/10/24 07:43 02/10/24 07:10
Physical Exam
Constitutional: No Acute Distress
Gastrointestinal: Soft, Non Tender and Non Distended
Objective Data
Lab Data
Lab Results
02/10/24 07:01
02/10/24 07:01
Estimated Creat Clear 64 ml/min 02/10/24 07:01
Lactic Acid 1.0 mmol/L (0.7-2.0) 02/06/24 01:26
Total Bilirubin 0.4 mg/dl (0.2-1.3) 02/08/24 07:39
AST 22 U/L (14-36) 02/08/24 07:39
ALT 13 U/L (0-35) 02/08/24 07:39
Alkaline Phosphatase 93 U/L (38-126) 02/08/24 07:39
Most recent labs reviewed.
Micro Results:
02/06/24 05:27 Salmonella/Shigella Culture - Final
Feces/Stool No Salmonella, Shigella, Aeromonas or Plesiomonas species
isolated.
Campylobacter Culture - Final
No Campylobacter species isolated.
Shiga Toxin Test - Final
No E. coli Shiga Toxin 1 or 2 detected.
02/06/24 05:27 - Final
Feces/Stool Negative for Norovirus GI and GII.
02/06/24 05:27 C. difficile GDH Antigen & Toxins - Final
Feces/Stool C. difficile antigen positive, toxin negative.
Clostridium difficile present, but toxin not detected.
Patient may be a carrier, colonized with nontoxinogenic
strain or the level of toxin in sample is below detection
limits. This information should be used in conjunction with
the patient's clinical history.
02/05/24 CXR: No acute cardiopulmonary abnormality.
02/07/24 CT a/p: There is colitis with moderate bowel wall thickening in mild pericolonic inflammatory stranding involving an approximately 15-20 cm in length segment of sigmoid and distal descending colon.
Care Review
Plan reviewed with: Physician (Dr. Shipman)
--- NOTE | 2024-02-10 10:27 | CM ---
Patient seen at bedside with daughter Marylou.
Patient cont with diarrhea
Resident ONC in to see patient.
Discussed recommendations by therapy - home PT vs. no needs.
Patient declines home PT
Daughter states will transport home or patient grandson
PLAN: Discharge home when medically stable. Declines home PT
daughter or grandson to transport.
--- NOTE | 2024-02-10 10:28 | CON.ONC ---
Impression
Impression
History of high-grade T1 bladder carcinoma on the right posterior bladder wall without involvement of urethral orifice. Status post TURB in 2021
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 Next dose scheduled for 02/10.
Right ureteral stent placed at [facility] on 01/29.
Plan
Plan
Hold Keytruda per management of primary high-grade bladder carcinoma until CDiff resolved.
Continue patient on fidaxomicin per ID recommendations for management of C. difficile
Continue to monitor stool frequency and quality per primary team
Patient History
History of Present Illness
Patient is an 83-year-old female with past medical history of hypertension, lumbar radiculopathy, Shelby's, hypothyroidism, anxiety and bladder cancer status post TURB in 2021 currently on Keytruda immunotherapy for BCG refractory disease.
Recently patient underwent cystoscopy and stent change on 01/29. Patient presented with diarrhea starting on 01/26, with history of completed course of amoxicillin the week prior due to stent placement, diagnosed with C. difficile on 02/06. CT scan on
09/06 showed colitis involving sigmoid and distal descending colon. Patient started on fidaxomicin 200 mg twice daily, course to be completed on 02/15.
Today she reports no headaches, nausea, vomiting, chest pain, shortness of breath, abdominal pain or any new symptoms. She remarks she has ongoing diarrhea but is able to walk from the bed to the bathroom to stool. Stool is currently liquid brown.
She is tolerating solid diet.
Past-Medical/Surgical History
Past Medical History: Reports Other ( essential HTN, lumbar radiculopathy, Shelby's esophagus, hypothyroidism, bladder cancer s/p TURBT 2021, anxiety/depression)
Past Surgical History: Reports Cholecystectomy, Orthopedic (bilateral knee replacement 2093), Urological (cystoscopy, TURBT February 2022) and Other (Moh's )
Patient Medication
�Medication �Instructions �Recorded �Confirmed �Last Taken �Type
cholecalciferol (vitamin D3) 50 2,000 units PO DAILY Supplement 05/09/21 02/06/24 02/04/24 08:00 History
mcg (2,000 unit) tablet
efinaconazole 10 % topical 4 ml TP DAILY PRN Infection 05/09/21 02/06/24 02/04/24 08:00 History
solution with applicator (Jublia)
levothyroxine 125 mcg tablet 125 mcg PO DAILY Thyroid 05/09/21 02/06/24 02/04/24 08:00 History
multivitamin with folic acid 400 1 tab PO DAILY Supplement 05/09/21 02/06/24 02/04/24 08:00 History
mcg tablet (Tab-A-Cesario)
pantoprazole 40 mg tablet,delayed 40 mg PO DAILY Gastrointestinal 05/09/21 02/06/24 02/04/24 08:00 History
release issue
amlodipine 2.5 mg tablet 2.5 mg PO DAILY Blood pressure ##0 06/05/21 02/06/24 02/04/24 08:00 Rx
calcium carbonate 600 mg-vitamin 1 tab PO BID Supplement 01/09/22 02/06/24 02/04/24 08:00 History
D3 5 mcg (200 unit) tablet
Motrin 400 mg PO 4-8XD Pain 02/05/24 02/05/24 Unknown History
Vitamin B-12 2.4 mcg PO DAILY Supplement 02/05/24 02/06/24 02/04/24 08:00 History
escitalopram oxalate 10 mg PO DAILY Mental 02/05/24 02/06/24 02/04/24 08:00 History
Health/Anxiety
Tylenol Ex Str Arthritis Pain 1,000 mg PO Q6HPRN PRN discomfort 02/09/24 02/06/24 07/24/22 22:00 Rx
##0
fidaxomicin 200 mg tablet (Dificid) 200 mg PO BID #15 tabs 02/09/24 Unknown Rx
Active Medications
Generic Name Dose Route Start Last Admin
Trade Name Freq PRN Reason Stop Dose Admin
Acetaminophen 650 mg 02/06/24 00:45 02/10/24 06:07
Acetaminophen 325 Mg Tablet PO 03/05/24 00:44 650 mg
Q4HPRN PRN Administration
mild pain/ALVARENGA/temp> 100.4F
Amlodipine Besylate 2.5 mg 02/07/24 08:00 02/10/24 07:43
Amlodipine 2.5 Mg Tablet PO 03/06/24 07:59 2.5 mg
DAILY NICOLE Administration
Enoxaparin Sodium 40 mg 02/06/24 18:00 02/09/24 17:42
Enoxaparin Sodium 40 Mg/0.4 Ml Syringe SC 03/05/24 17:59 40 mg
QPM NICOLE Administration
Escitalopram Oxalate 10 mg 02/06/24 08:00 02/10/24 07:42
Escitalopram 10 Mg Tablet PO 03/05/24 07:59 10 mg
DAILY NICOLE Administration
Fidaxomicin 200 mg 02/07/24 13:45 02/10/24 07:42
Fidaxomicin (Dificid) 200 Mg Tablet PO 200 mg
BID NICOLE Administration
Levothyroxine Sodium 125 mcg 02/06/24 06:00 02/10/24 06:04
Levothyroxine 125 Mcg Tablet PO 03/05/24 05:59 125 mcg
DAILY @ 0600 NICOLE Administration
Lidocaine 1 patch 02/09/24 12:30 02/10/24 07:43
Lidocaine 4% Topical Patch TOPICAL 03/08/24 12:29 1 patch
DAILY NICOLE Administration
Protocol
Lidocaine 1 patch 02/09/24 12:30 02/10/24 07:43
Lidocaine 4% Topical Patch TOPICAL 03/08/24 12:29 1 patch
DAILY NICOLE Administration
Protocol
Ondansetron HCl 4 mg 02/06/24 00:45
Ondansetron 4 Mg/2 Ml Vial IV 03/05/24 00:44
Q6HPRN PRN
nausea and vomiting
Patch Removal 0 patch 02/09/24 20:00 02/09/24 19:46
Remove Lidocaine Patch REMOVE 03/08/24 19:59 2 patch
DAILY@2000 NICOLE Administration
Potassium Chloride 20 meq 02/09/24 20:00 02/10/24 07:42
Potassium Chloride 20 Meq Extended Release Tablet PO 03/08/24 19:59 20 meq
BID NICOLE Administration
Sodium Chloride 0 flush 02/05/24 23:00
Sodium Chloride 0.9% (Flush) Syringe IV 03/04/24 22:59
PER PROTOCOL NICOLE
Review of Systems
-
History Source: Patient
Constitutional: Reports No Symptoms
EENT: Reports No Symptoms
Respiratory: Reports No Symptoms
Cardiac: Reports No Symptoms
GI: Reports Diarrhea
: Reports No Symptoms
Musculoskeletal: Reports No Symptoms
Neuro: Reports No Symptoms
Hematologic/Lymphatic: Reports No Symptoms
Psych: Reports No Symptoms
Physical Exam
-
General: Well Developed, Well Nourished, Comfortable and Conversant
Cardiology: Normal Sinus Rhythm, S1 and S2
Pulmonary: Clear
GI: Soft and Normal Bowel Sounds
Skin: Warm and Dry
Psych: Calm
Labs
Lab Results
WBC 5.3 10^3/uL (4.8-10.8) 02/10/24 07:01
RBC 3.03 10^6/uL (4.20-5.40) L 02/10/24 07:01
Hgb 9.4 g/dL (12.0-16.0) L 02/10/24 07:01
Hct 27.8 % (37.0-47.0) L 02/10/24 07:01
MCV 91.7 fL (81.0-99.0) 02/10/24 07:01
MCH 31.0 pg (27.0-31.0) 02/10/24 07:01
MCHC 33.8 g/dL (33.0-37.0) 02/10/24 07:01
RDW 13.3 % (11.5-14.5) 02/10/24 07:01
Plt Count 302 10^3/uL (130-400) 02/10/24 07:01
MPV 9.8 fL (7.4-10.4) 02/10/24 07:01
Abs Immat Gran (auto) 0.1 10^3/uL (0-0.05) H 02/07/24 08:03
Absolute Neuts (auto) 6.2 10^3/uL (1.4-6.5) 02/07/24 08:03
Absolute Lymphs (auto) 1.5 10^3/uL (1.2-3.4) 02/07/24 08:03
Absolute Monos (auto) 0.7 10^3/uL (0.1-0.6) H 02/07/24 08:03
Absolute Eos (auto) 0.1 10^3/uL (0-0.7) 02/07/24 08:03
Absolute Basos (auto) 0.0 10^3/uL (0-0.2) 02/07/24 08:03
Immature Gran % 0.6 % (0-0.5) H 02/07/24 08:03
Neutrophils % 72.2 % (42.2-75.2) 02/07/24 08:03
Lymphocytes % 17.2 % (20.5-51.1) L 02/07/24 08:03
Monocytes % 8.4 % (1.7-9.3) 02/07/24 08:03
Eosinophils % 1.3 % (0-6) 02/07/24 08:03
Basophils % 0.3 % (0-2) 02/07/24 08:03
Creatinine 0.6 mg/dL (0.6-1.0) 02/10/24 07:01
Vital Signs
Vital Signs
Temp Pulse Resp BP Pulse Ox
98.5 F 83 16 132/60 96
02/10/24 07:10 02/10/24 07:43 02/10/24 07:10 02/10/24 07:43 02/10/24 07:10
--- NOTE | 2024-02-10 12:23 | PN.CDI ---
CDI
- -
CDI:
Physician Documentation Request
Admit Date: 02/05/24 23:44
Dear Doctor Umberto,
Please review the following and provide your response in the progress notes.
Clinical Indicators:
The diagnosis of sepsis was documented on 02/05 but is not consistently noted in subsequent documentation.
H&P states 'Sepsis 2/2 GI Illness patient meets sepsis criteria with leukocytosis and elevated RR and pulse'
Please clarify the following:
____ - Sepsis was present on admission
____ - Sepsis was ruled out
____ - Other
Use of terms such as suspected, likely, concern for, or probable (associated with a specific diagnosis that is being evaluated, monitored, or treated as if it exists) are acceptable and can be coded in the inpatient setting, when documented at the
time of discharge.
Thank you,
Liliane Pantoja RN, BSN
CDI Specialist
tiger text
Please use your independent medical judgment in providing your response.
[2024-02-10 12:55] VITALS: BP 126/60; PULSE 90
[2024-02-10 15:50] VITALS: BP 137/64
[2024-02-10] MEDS: LOVENOX 40 MG SC (17:34)
[2024-02-10 22:47] VITALS: BP 133/58
[2024-02-11] MEDS: TYLENOL 650 MG PO ×4 (01:17→22:03)
[2024-02-11 05:48] VITALS: BMI 26.8
[2024-02-11] MEDS: SYNTHROID 125 MCG PO (06:18)
--- NOTE | 2024-02-11 07:18 | W.PN.HOSP.TC ---
Today's Communication/Plan
-
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
Assessment / Plan
Assessment / Plan
Physical Exam
General: Well Developed, Well Nourished and No Apparent Distress
HEENT: Normocephalic and Atraumatic
Respiratory: Clear to Auscultation; Negative Wheezes or Rhonchi
Cardiac: Regular Rhythm and S1/S2; Negative Murmur
GI: Soft, Nontender, Nondistended and Normal Bowel Sounds
Musculoskeletal: No Clubbing and No Cyanosis; Negative No Edema (1+ LE edema bilaterally)
Skin: Warm
Neuro: Awake
83F HTN Lumbar Radiculopathy Ian's esophagus hypothyroidism Bladder Ca s/p TURBT on Keytruda
ongoing diarrhea now with LLQ abdominal pain--Suspected C. difficile colitis (was on amoxicillin for urology procedure)--despite C. diff antigen positive, toxin negative, still believe so--diarrhea improving with Dificid---WBC improved (22K on
admission down to 8.6 with 9/1 AM labs pending)--- CT scan abdomen pelvis with colitis--apprec GI and ID--tolerating diet--stop IVF--transferred to med/surg
-oncology eval appreciated
-confirmed with pharmacy patient has copay 60 dollars for prescribed dificid treatment.
-prednisone 70 mg daily started d/t ongoing diarrhea concern keytruda associated colitis
HTN--
cont home amlodipine 2.5 mg daily
Hypothyroidism
cont home levothyroxine 125 mcg daily
Shelby's Esophagus--Unclear if she has had endoscopic ablation, remains on 40 mg pantoprazole daily--Should follow-up with gastroenterology and PCP after discharge
Bladder Cancer--Diagnosed in 2021, s/p TURBT--Remains on Keytruda immunotherapy--Follows with oncology Dr Jonathan [facility] [correction to prior documentation] and urology at [place]
Lumbar Radiculopathy--Outpatient regimen includes as needed Motrin and Tylenol--Caution against overuse of NSAIDs. Lidocaine patch applied
Anxiety/Depression--Continued on home Lexapro, appears stable
DVT PPx: Lovenox subQ
CODE STATUS: DNR
discussed with patient and patient's daughter Marylou
I spent a total of 50 minutes with the patient or on the floor. More than 50% of this time involved counseling and coordination of care.
Anticipated Discharge: 24 - 48 hours
Subjective/Interval History
-
Date of Service: February 11, 2024
Diarrhea persists though abd pain since resolved.
Objective Data
-
Labs:
Laboratory Results
02/11/24
05:54
WBC Pending
Hgb Pending
Hct Pending
Plt Count Pending
Sodium Pending
Potassium Pending
Chloride Pending
Carbon Dioxide Pending
BUN Pending
Creatinine Pending
Glucose Pending
Calcium Pending
Vital Signs:
Vital Signs
Temp Pulse Resp BP Pulse Ox
98.2 F 81 16 133/58 94
02/10/24 22:47 02/10/24 22:47 02/10/24 22:47 02/10/24 22:47 02/11/24 00:07
I&O
02/10/24 02/11/24 02/12/24
06:59 06:59 06:59
Intake Total 1350 / 1350 1320 / 1320
Output Total 300 / 300
Balance 1350 / 1350 1020 / 1020
[2024-02-11 07:23] LABS: Hematocrit 28.3 % (37.0-47.0); Hemoglobin 9.4 g/dL (12.0-16.0); Mean Corp Hgb Conc. 33.2 g/dL (33.0-37.0); Mean Corpuscular Volume 90.4 fL (81.0-99.0); Mean Platelet Volume 9.5 fL (7.4-10.4); Platelet Count 303 10^3/uL (130-400); Red Blood Cell Count 3.13 10^6/uL (4.20-5.40); Red Cell Dist. Width 13.3 % (11.5-14.5)
[2024-02-11 07:36] LABS: Blood Urea Nitrogen 9 mg/dl (7-17); Calcium 8.4 mg/dl (8.4-10.2); Carbon Dioxide 25 mmol/L (22-30); Chloride 110 mmol/L (98-107); Estimated Creatinine Clearance 64 ml/min; Glucose 108 mg/dl (70-99); Magnesium 1.5 mg/dl (1.6-2.3); Potassium 3.9 mmol/L (3.5-5.1); Sodium 142 mmol/L (135-145); eGFR > 60.00
[2024-02-11] MEDS: MAGNESIUM SULFATE 100 IV (08:15)
[2024-02-11] MEDS: DIFICID 200 MG PO ×2 (08:19→19:57)
[2024-02-11] MEDS: LEXAPRO 10 MG PO (08:19)
[2024-02-11] MEDS: KCL 20 MEQ PO ×2 (08:21→19:57)
[2024-02-11] MEDS: LIDOCAINE 4% PATCH 1 PATCH TOPICAL ×2 (08:22)
[2024-02-11] MEDS: NORVASC 2.5 MG PO (08:22)
[2024-02-11 08:25] VITALS: BP 137/71
--- NOTE | 2024-02-11 11:12 | CM ---
Patient seen at bedside.
States still with diarrhea.
PT recommends home PT vs. no needs.
Discussed with patient again home health & declines.
PLAN: Discharge when medically stable, declines home health
--- NOTE | 2024-02-11 13:39 | W.PN.ID1 ---
Date of Service
Date of Service: February 11, 2024
Today's Communication
- Agree with possible Keytruda- associated colitis if diarrhea does not resolve on fidaxomicin.
Assessment / Plan
# Probable C. diff colitis - improving but not resolved
- C. diff Ag+, toxin negative.
Under clinical context, suspect C. diff infection: recent abx exposure, leukocytosis, severe diarrhea.
- CT a/p colitis distal descending and sigmoid. No megacolon.
- Continue fidaxomicin 200mg po bid (d5 of 10) through 02/16/24
- Agree with possible Keytruda- associated colitis if diarrhea does not resolve on fidaxomicin.
# Conditions [employer]
Hypertension
Hypothyroidism
Bladder cancer status post TURBT 2021, + right ureter stent, on Keytruda [id number]
Anxiety/depression
Lumbar radiculopathy
Shelby's esophagus
Cholecystectomy
Bilateral knee replacements
Right MANJIT
Chief Complaint
-: Other (Diarrhea)
Subjective / Review of Systems
Has loose stools small amts about 4x a day.
Vital Signs / Physical Exam
Vital Signs
Vital Signs
Temp Pulse Resp BP Pulse Ox
98.0 F 91 16 137/71 99
02/11/24 08:25 02/11/24 08:25 02/11/24 08:25 02/11/24 08:25 02/11/24 08:25
Physical Exam
Constitutional: No Acute Distress
Gastrointestinal: Soft, Non Tender, Non Distended and Normal Bowel Sounds
Objective Data
Lab Data
Lab Results
02/11/24 05:54
02/11/24 05:54
Estimated Creat Clear 64 ml/min 02/11/24 05:54
Lactic Acid 1.0 mmol/L (0.7-2.0) 02/06/24 01:26
Total Bilirubin 0.4 mg/dl (0.2-1.3) 02/08/24 07:39
AST 22 U/L (14-36) 02/08/24 07:39
ALT 13 U/L (0-35) 02/08/24 07:39
Alkaline Phosphatase 93 U/L (38-126) 02/08/24 07:39
Most recent labs reviewed.
Micro Results:
02/06/24 05:27 Salmonella/Shigella Culture - Final
Feces/Stool No Salmonella, Shigella, Aeromonas or Plesiomonas species
isolated.
Campylobacter Culture - Final
No Campylobacter species isolated.
Shiga Toxin Test - Final
No E. coli Shiga Toxin 1 or 2 detected.
02/06/24 05:27 - Final
Feces/Stool Negative for Norovirus GI and GII.
02/06/24 05:27 C. difficile GDH Antigen & Toxins - Final
Feces/Stool C. difficile antigen positive, toxin negative.
Clostridium difficile present, but toxin not detected.
Patient may be a carrier, colonized with nontoxinogenic
strain or the level of toxin in sample is below detection
limits. This information should be used in conjunction with
the patient's clinical history.
02/05/24 CXR: No acute cardiopulmonary abnormality.
02/07/24 CT a/p: There is colitis with moderate bowel wall thickening in mild pericolonic inflammatory stranding involving an approximately 15-20 cm in length segment of sigmoid and distal descending colon.
[2024-02-11 16:00] VITALS: BP 128/56
[2024-02-11] MEDS: DELTASONE 50 MG PO (17:37)
[2024-02-11] MEDS: DELTASONE 20 MG PO (17:39)
[2024-02-11] MEDS: LOVENOX 40 MG SC (17:39)
[2024-02-11 23:20] VITALS: BP 126/59
[2024-02-12] MEDS: TYLENOL 650 MG PO (03:04)
[2024-02-12] MEDS: SYNTHROID 125 MCG PO (05:50)
[2024-02-12 05:59] VITALS: BMI 27.0
--- NOTE | 2024-02-12 07:51 | W.PN.HOSP.TC ---
Addendum entered and electronically signed by Janice Shipman MD 02/19/24 13:21:
Sepsis present on Admission since resolved
Original Note:
Today's Communication/Plan
-
discharge
Assessment / Plan
Assessment / Plan
Physical Exam
General: Well Developed, Well Nourished and No Apparent Distress
HEENT: Normocephalic and Atraumatic
Respiratory: Clear to Auscultation; Negative Wheezes or Rhonchi
Cardiac: Regular Rhythm and S1/S2; Negative Murmur
GI: Soft, Nontender, Nondistended and Normal Bowel Sounds
Musculoskeletal: No Clubbing and No Cyanosis; Negative No Edema (1+ LE edema bilaterally)
Skin: Warm
Neuro: Awake
83F HTN Lumbar Radiculopathy Ian's esophagus hypothyroidism Bladder Ca s/p TURBT on Keytruda
ongoing diarrhea now with LLQ abdominal pain--Suspected C. difficile colitis (was on amoxicillin for urology procedure)--despite C. diff antigen positive, toxin negative, still believe so--diarrhea improving with Dificid---WBC improved (22K on
admission down to 8.6 with 9/1 AM labs pending)--- CT scan abdomen pelvis with colitis--apprec GI and ID--tolerating diet--stop IVF--transferred to med/surg
-oncology eval appreciated
-confirmed with pharmacy patient has copay 60 dollars for prescribed dificid treatment.
-prednisone 70 mg daily started d/t ongoing diarrhea concern keytruda associated colitis, symptoms however since resolved, too quickly after start prednisone, unlikely keytruda colitis per Oncology
HTN--
cont home amlodipine 2.5 mg daily
Hypothyroidism
cont home levothyroxine 125 mcg daily
Shelby's Esophagus--Unclear if she has had endoscopic ablation, remains on 40 mg pantoprazole daily--Should follow-up with gastroenterology and PCP after discharge
Bladder Cancer--Diagnosed in 2021, s/p TURBT--Remains on Keytruda immunotherapy--Follows with oncology Dr Jonathan [facility] [correction to prior documentation] and urology at [facility]
Lumbar Radiculopathy--Outpatient regimen includes as needed Motrin and Tylenol--Caution against overuse of NSAIDs. Lidocaine patch applied
Anxiety/Depression--Continued on home Lexapro, appears stable
DVT PPx: Lovenox subQ
CODE STATUS: DNR
Medically stable for discharge home with outpatient follow up recommendations
discussed with patient and patient's daughter Marylou
Total Time Preparing Discharge __40 minutes including examination of the patient, summary of the hospital stay, instructions for continuing care to all relevant caregivers; and preparation of discharge records, prescriptions, and referral
forms if necessary.
Anticipated Discharge: Today
Subjective/Interval History
-
Date of Service: February 12, 2024
Seen and examined at bedside in no acute distress resting comfortably in bed. Reports resolution of diarrhea. Overall reports feeling well. Denies new acute issues at this time. Eager to go home.
Objective Data
-
Labs:
Laboratory Results
02/12/24
06:00
WBC Pending
Hgb Pending
Hct Pending
Plt Count Pending
Sodium Pending
Potassium Pending
Chloride Pending
Carbon Dioxide Pending
BUN Pending
Creatinine Pending
Glucose Pending
Calcium Pending
Vital Signs:
Vital Signs
Temp Pulse Resp BP Pulse Ox
98.4 F 92 18 126/59 95
02/11/24 23:20 02/11/24 23:20 02/11/24 23:20 02/11/24 23:20 02/12/24 02:01
I&O
02/11/24 02/12/24 02/13/24
06:59 06:59 06:59
Intake Total 1320 / 1320 1020 / 1020
Output Total 300 / 300
Balance 1020 / 1020 1020 / 1020
[2024-02-12 07:55] VITALS: BP 126/60
[2024-02-12 08:23] LABS: Hematocrit 28.3 % (37.0-47.0); Hemoglobin 9.7 g/dL (12.0-16.0); Mean Corp Hgb Conc. 34.3 g/dL (33.0-37.0); Mean Corpuscular Volume 90.4 fL (81.0-99.0); Mean Platelet Volume 9.3 fL (7.4-10.4); Platelet Count 319 10^3/uL (130-400); Red Blood Cell Count 3.13 10^6/uL (4.20-5.40); Red Cell Dist. Width 13.1 % (11.5-14.5); White Blood Cell Count 6.6 10^3/uL (4.8-10.8)
[2024-02-12 09:16] LABS: Blood Urea Nitrogen 11 mg/dl (7-17); Calcium 8.5 mg/dl (8.4-10.2); Carbon Dioxide 20 mmol/L (22-30); Chloride 108 mmol/L (98-107); Estimated Creatinine Clearance 64 ml/min; Glucose 135 mg/dl (70-99); Magnesium 2.1 mg/dl (1.6-2.3); Phosphorus 3.6 mg/dl (2.5-4.5); Potassium 4.6 mmol/L (3.5-5.1); Sodium 142 mmol/L (135-145); eGFR > 60.00
[2024-02-12] MEDS: LEXAPRO 10 MG PO (09:17)
[2024-02-12] MEDS: NORVASC 2.5 MG PO (09:18)
[2024-02-12] MEDS: DIFICID 200 MG PO (09:19)
[2024-02-12] MEDS: DELTASONE 20 MG PO (09:19)
[2024-02-12] MEDS: PROTONIX 40 MG PO (09:19)
[2024-02-12] MEDS: DELTASONE 50 MG PO (09:19)
[2024-02-12] MEDS: LIDOCAINE 4% PATCH 1 PATCH TOPICAL ×2 (09:20)
[2024-02-12] MEDS: KCL 20 MEQ PO (09:20)
--- NOTE | 2024-02-12 10:57 | W.PN.ID1 ---
Date of Service
Date of Service: February 12, 2024
Today's Communication
Can finish course of fidaxomicin.
Assessment / Plan
# Keytruda-associated colitis/diarrhea
- Quick response to steroid.
# Possible C. diff colitis
- C. diff Ag+, toxin negative.
-Diarrhea improved but not resolved while on fidaxomicin.
- Can finish empiric fidaxomicin 200mg po bid (d6 of 10) through 02/16/24.
# Conditions [employer] ARCHITECT
Hypertension
Hypothyroidism
Bladder cancer status post TURBT 2021, + right ureter stent, on Keytruda [id number]
Anxiety/depression
Lumbar radiculopathy
Shelby's esophagus
Cholecystectomy
Bilateral knee replacements
Right MANJIT
Chief Complaint
-: Other (Diarrhea)
Subjective / Review of Systems
Diarrhea much improved after start of steroid. Had 1 small bm.
Vital Signs / Physical Exam
Vital Signs
Vital Signs
Temp Pulse Resp BP Pulse Ox
98.1 F 75 16 120/60 92
02/12/24 07:55 02/12/24 09:18 02/12/24 07:55 02/12/24 09:18 02/12/24 07:55
Physical Exam
Constitutional: No Acute Distress
Gastrointestinal: Non Tender
Objective Data
Lab Data
Lab Results
02/12/24 08:06
02/12/24 08:06
Estimated Creat Clear 64 ml/min 02/12/24 08:06
Lactic Acid 1.0 mmol/L (0.7-2.0) 02/06/24 01:26
Total Bilirubin 0.4 mg/dl (0.2-1.3) 02/08/24 07:39
AST 22 U/L (14-36) 02/08/24 07:39
ALT 13 U/L (0-35) 02/08/24 07:39
Alkaline Phosphatase 93 U/L (38-126) 02/08/24 07:39
Most recent labs reviewed.
Micro Results:
02/06/24 05:27 Salmonella/Shigella Culture - Final
Feces/Stool No Salmonella, Shigella, Aeromonas or Plesiomonas species
isolated.
Campylobacter Culture - Final
No Campylobacter species isolated.
Shiga Toxin Test - Final
No E. coli Shiga Toxin 1 or 2 detected.
02/06/24 05:27 - Final
Feces/Stool Negative for Norovirus GI and GII.
02/06/24 05:27 C. difficile GDH Antigen & Toxins - Final
Feces/Stool C. difficile antigen positive, toxin negative.
Clostridium difficile present, but toxin not detected.
Patient may be a carrier, colonized with nontoxinogenic
strain or the level of toxin in sample is below detection
limits. This information should be used in conjunction with
the patient's clinical history.
02/05/24 CXR: No acute cardiopulmonary abnormality.
02/07/24 CT a/p: There is colitis with moderate bowel wall thickening in mild pericolonic inflammatory stranding involving an approximately 15-20 cm in length segment of sigmoid and distal descending colon.
Care Review
Plan reviewed with: Physician (Dr. Shipman)
--- NOTE | 2024-02-12 11:05 | W.PN.ONC2 ---
Addendum entered and electronically signed by Jennifer Pena MD 02/12/24 13:37:
Attending Communication/Plan:
Checkpoint Inhibitor colitis does not usually respond well to steroids, and if it does, it does so more slowly.
Potential downside of steroids is significant inpatient on checkpoint inhibitor therapy.
Reviewed GI note indicating that rapid improvement in C. difficile is likely due to effective C. difficile treatment.
Discontinue prednisone.
If diarrhea recurs, would suggest endoscopic evaluation by GI, also as per their note.
With diarrhea is improving, patient can still go home.
Recommendations discussed with daughter Marylou and patient, and communicated to hospitalist.
LDougherty
Original Note:
Documented by User: Ho Centeno DO, Resident 02/12/24 11:49
Today's Communication / Plan
-
Hold Keytruda per management of primary high-grade bladder carcinoma until CDiff resolved.
Continue patient on fidaxomicin per ID recommendations for management of C. difficile. Patient started on prednisone 70 mg/daily for potential keytruda related colitis.
Impression
Impression
History of high-grade T1 bladder carcinoma on the right posterior bladder wall without involvement of urethral orifice. Status post TURB in 2021
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 Next dose scheduled for 02/10.
Right ureteral stent placed at [facility] on 01/29.
Subjective/Objective
Chief Complaint
Heme Onc follow up
Subjective
Patient reports feeling better than prior days. She began steroids yesterday per ID and medical team and reports that frequency has reduced and she had one small formed stool this morning
Vital Signs:
Vital Signs
Temp Pulse Resp BP Pulse Ox
98.1 F 75 16 120/60 92
02/12/24 07:55 02/12/24 09:18 02/12/24 07:55 02/12/24 09:18 02/12/24 07:55
Lab Results:
Laboratory Data
WBC 6.6 10^3/uL (4.8-10.8) 02/12/24 08:06
Hgb 9.7 g/dL (12.0-16.0) L 02/12/24 08:06
Plt Count 319 10^3/uL (130-400) 02/12/24 08:06
eGFR > 60.00 02/12/24 08:06
Physical Exam
General: AAOx3, conversant, comfortable
GI: Soft
Extremities: No C/C/E
Review of Systems
Review of Systems
All systems reviewed and negative unless noted otherwise.
Gastrointestinal: Reports Diarrhea (reduced since prednisone 02/10)

Documented by User: Jennifer Pena MD 02/12/24 13:36
Today's Communication / Plan
-
Hold Keytruda per management of primary high-grade bladder carcinoma until CDiff resolved.
Continue patient on fidaxomicin per ID recommendations for management of C. difficile. Patient started on prednisone 70 mg/daily for potential keytruda related colitis.
--- NOTE | 2024-02-12 13:01 | CM ---
Addendum entered by Josefina Flores 02/12/24 14:19:
Patient discharge today to home. No needs.
IMM explained & signed. In chart.
Daughter to transport.
Original Note:
Patient seen at bedside.
Continues on antibiotics.
Declined PT today - ambulating independently.
Declines any home needs.
PLAN: Discharge to home when medically stable.
--- NOTE | 2024-02-12 13:50 | W.DCSUMMARY ---
Discharge Summary
Discharge Data
Date of Admission: 02/05/24
Date of Discharge: 02/12/24
-
Pending Results: No
Discharge Plan
-
Patient Disposition: Home (Routine Discharge)
Discharge Diagnosis/Procedures: Presumed C. difficile colitis despite antigen positive and toxin negative, essential hypertension, hypothyroidism, history of Shelby's esophagus, bladder cancer, lumbar radiculopathy, anxiety/depression
Condition: Good
Diet: Low Residue
Additional Diets: Advance to regular as tolerated
Activity: As tolerated
Driving Restrictions: As prior to admission
Bathing Restrictions: None
Blood Work: Please repeat CBC BMP and Magnesium level with primary care provider in 1 week of discharge.
Activity Restrictions/Additional Instructions:
Please follow up with primary care provider and oncology in 1 week of discharge. Follow up with GI also recommended if diarrhea re-occurs/worsens.
Dificid has been prescribed for treatment Cdiff, last day of antibiotic is 02/16/24.
Please take medications as prescribed/recommended and follow up with primary care provider and/or other healthcare provider involved in your care for refills and/or further adjustment to your medication regimen as necessary.
Instructions: C. difficile infection
Referrals:
Vadim Castillo DO [Active] - in one week
Lauren Friedman CRNP [Family Provider] - in one week
Serafin Waller MD [Active] - in one to two weeks
Prescriptions:
New
Dificid 200 mg Tablet
200 mg PO BID Qty: 15 0RF
Rx Instructions:
Last day of Dificid 02/16/24
Continued
pantoprazole 40 MG tablet,delayed release (DR/EC)
40 mg PO DAILY
levothyroxine 125 MCG tablet
125 mcg PO DAILY
cholecalciferol (vitamin D3) 2,000 UNITS tablet
2,000 units PO DAILY
multivitamin with folic acid [Tab-A-Cesario] 1 TABLET tablet
1 tab PO DAILY
Jublia 4 ML solution with applicator
4 ml TP DAILY PRN (Reason: Infection)
Rx Instructions:
fungus on toe
amlodipine 2.5 MG tablet
2.5 mg PO DAILY Qty: 0 0RF
Rx Instructions:
Hold if systolic blood pressure <130 while on Oxycodone.
calcium carbonate-vitamin D3 600 mg-5 mcg (200 unit) Tablet
1 tab PO BID
Motrin 400 mg
400 mg PO 4-8XD
Vitamin B-12 2.4 mcg
2.4 mcg PO DAILY
escitalopram oxalate 10 mg
10 mg PO DAILY
Changed
Tylenol Ex Str Arthritis Pain
1,000 mg PO Q6HPRN PRN (Reason: discomfort) Qty: 0 0RF
Discharge Orders:
Discharge Patient (As Directed); Ordered 02/12/24
Ordered By: Janice Shipman
Discharge Date and Time
Print Language: CZECH
[2024-02-12 14:45] VITALS: BP 131/76
== END 2024-02-12 15:19 | disposition home or self-care (01) | DRG 872 ==
LOC: 2 NORTH 23:44
PROVIDERS: Emergency Medicine; Internal Medicine; ADMITTING PHYSICIAN Student in an Organized Health Care Education/Training Program; ATTENDING PHYSICIAN Internal Medicine; CONSULT PHYSICIAN Internal Medicine Gastroenterology; CONSULT PHYSICIAN Internal Medicine Hematology & Oncology; CONSULT PHYSICIAN Internal Medicine Infectious Disease; EMERGENCY PHYSICIAN Emergency Medicine; FAMILY PHYSICIAN Nurse Practitioner Primary Care
DX: A41.9 Sepsis, unspecified organism (principal); A04.72 Enterocolitis due to Clostridium difficile, not specified as recurrent; I10 Essential (primary) hypertension; E03.9 Hypothyroidism, unspecified; F41.9 Anxiety disorder, unspecified; F32.A Depression, unspecified; K22.70 Barrett's esophagus without dysplasia; C67.9 Malignant neoplasm of bladder, unspecified; M54.16 Radiculopathy, lumbar region; Z66 Do not resuscitate
CPT/HCPCS: 36415; 71046; 74177; 80048; 80053; 83605; 83690; 83735; 84100; 84439; 84443; 84481; 85025; 85027; 87045; 87046; 87324; 87427; 87449; 87798; 87811; 93005; 96361; 96374; 97163; 97167; 97530; 99285; Q9967

== ENCOUNTER → 2024-02-19 09:59 | Outpatient (REF) | payer MEDICARE, BC, SELFPAY ==
[2024-02-19 10:37] LABS: % Basophils 1.1 % (0-2); % Eosinophils 2.6 % (0-6); % Immature Granulocytes 2.2 % (0-0.5); % Lymphocytes 26.9 % (20.5-51.1); % Monocytes 9.9 % (1.7-9.3); % Neutrophils 57.3 % (42.2-75.2); Absolute Basophils 0.1 10^3/uL (0-0.2); Absolute Eosinophils 0.2 10^3/uL (0-0.7); Absolute Immature Granulocytes 0.2 10^3/uL (0-0.05); Absolute Monocytes 0.8 10^3/uL (0.1-0.6); Absolute Neutrophils 4.3 10^3/uL (1.4-6.5); Hematocrit 35.8 % (37.0-47.0); Hemoglobin 11.7 g/dL (12.0-16.0); Mean Corp Hgb Conc. 32.7 g/dL (33.0-37.0); Mean Corpuscular Hgb 30.5 pg (27.0-31.0); Mean Corpuscular Volume 93.2 fL (81.0-99.0); Mean Platelet Volume 9.1 fL (7.4-10.4); Nucleated Red Blood Cells % 0 %; Platelet Count 404 10^3/uL (130-400); Red Blood Cell Count 3.84 10^6/uL (4.20-5.40); Red Cell Dist. Width 13.6 % (11.5-14.5); White Blood Cell Count 7.6 10^3/uL (4.8-10.8)
[2024-02-19 11:08] LABS: ALT (SGPT) 19 U/L (0-35); AST (SGOT) 32 U/L (14-36); Albumin 3.9 g/dl (3.5-5.0); Alkaline Phosphatase 121 U/L (38-126); Blood Urea Nitrogen 15 mg/dl (7-17); Calcium 9.4 mg/dl (8.4-10.2); Carbon Dioxide 24 mmol/L (22-30); Chloride 105 mmol/L (98-107); Glucose 130 mg/dl (70-99); Magnesium 1.9 mg/dl (1.6-2.3); Potassium 4.6 mmol/L (3.5-5.1); Sodium 143 mmol/L (135-145); Total Bilirubin 0.5 mg/dl (0.2-1.3); Total Protein 6.8 g/dl (6.3-8.2); eGFR > 60.00
[2024-02-19 11:23] LABS: Free T4 1.29 ng/dl (0.78-2.19)
[2024-02-19 11:36] LABS: TSH 5.71 uIU/ml (0.47-4.68)
[2024-02-21 05:10] LABS: Total T3 (Sendout) 104 ng/dL (80-200)
== END ==
LOC: REG 09:59
PROVIDERS: ATTENDING PHYSICIAN Internal Medicine Hematology & Oncology; FAMILY PHYSICIAN Nurse Practitioner Primary Care; REFERRING PHYSICIAN Urology
DX: C67.9 Malignant neoplasm of bladder, unspecified (principal); D64.9 Anemia, unspecified; R89.9 Unspecified abnormal finding in specimens from other organs, systems and tissues; I10 Essential (primary) hypertension; R79.0 Abnormal level of blood mineral
CPT/HCPCS: 36415; 80053; 83735; 84439; 84443; 84480; 85025

== ENCOUNTER 2024-03-07 16:29 | Inpatient (IN) | payer MEDICARE, BC, SELFPAY ==
[2024-03-07] VITALS (9 sets, daily range): BP systolic 128–169; BP diastolic 58–82; BMI 26.2
--- NOTE | 2024-03-07 12:13 | ED.GENMED ---
History of Present Illness
General
Chief Complaint: Back Pain
Source: patient
Exam Limitations: none
Time Seen by Provider: 03/07/24 12:05
Nursing documentation reviewed up to this point in time: agreed with
History of Present Illness
History of Present Illness:
Patient is a 83-year-old female with current history of bladder cancer s/p TURBT, being treated with Key[facility] by [facility], history of recent hospitalization(February 04 to February 11) for C. difficile colitis, history of hypertension
lumbar radiculopathy Shelby's esophagus presents to the ER via ambulance with back pain and left hip pain. She reports she has had this pain since January however it has become increasingly worse. She is now not able to get up and walk around.
She is only taking Tylenol and recently prescribed steroids without relief. She did present via EMS and was given fentanyl en route. She does report that has helped a little. She reports pain is across the lower back and goes into her left
lateral hip. She has been followed at orthopedics and has seen Dr. Peterson in the past she does have a prescription for MRI but that was for 03/09. That included an MRI of the lumbar spine as well as the cervical spine.
She reports no bowel incontinence no new bladder incontinence though she has some incontinence issues since bladder cancer this is not new.
She lives alone and daughter who is at bedside reports she lives an hour away and they are looking to get patient in assisted living because she needs help at the present time
Past History
Past History
ED Past Medical History: HTN and Other (Shelby's esophagus, atrophic vaginitis)
ED Past Surgical History: Cardiac (Had catheterization) and Orthopedic (Right knee replacement)
Social History
Tobacco: Non-smoker
Alcohol: None
Drug: None
Personal: Single
Living: alone
Employment: Retired
Family History
Family History: Other (Noncontributory)
Review of Systems
Review of Systems
Allergies reviewed?: Yes
Other source history: family
All Other Systems: ROS reviewed and negative except as documented in HPI and ROS
Constitutional: Reports no symptoms
Respiratory: Reports no symptoms
Cardiac: Reports no symptoms
ABD/GI: Reports no symptoms
: Reports no symptoms
Musculoskeletal: Reports back pain and other (left hip pain )
Skin: Reports no symptoms
Hematologic/Lymphatic: Reports no symptoms
Psychiatric: Reports no symptoms
Phy Exam
General Physical Exam
General Presentation: no apparent distress
General age: appears stated age
General Skin: warm and dry
General Habitus: normal
General Mental: alert
General Hydration: appears well hydrated
Cardiovascular Exam
Cardiovascular Exam: regular rate/rhythm, no murmur and normal peripheral pulses
Pulmonary Exam
Pulmonary Exam: lungs clear and no respiratory distress
Gastrointestinal Exam
Gastrointestinal Exam: non tender and soft
Neurological Exam
Neurological Exam: alert, oriented x3 and other (Normal distal sensation)
Musculoskeletal Exam
Musculoskeletal Exam: other (pain in lower back with any twisting /turning in stretcher )
Skin Exam
Skin Exam: normal color and warm/dry
Psychiatric Exam
Psychiatric Exam: normal mood/affect
Course
Orders/Labs/Results
Orders:
Orders
03/07/24 11:58
Complete Blood Count/With Diff Urgent
Comprehensive Metabolic Panel Urgent
03/07/24 12:38
CT Lumbar Spine W/o Iv Contras Urgent
Comment:
Reason For Exam: low back pain hx of bladder cancer cant ambulate
03/07/24 12:39
CT Lower Ext W/o Iv Cont Lt Urgent
Comment:
Reason For Exam: left hip pain
03/07/24 12:42
IV Insert/Care/Rem.- Treatment PRN
Morphine Sulfate 2 mg IV NOW STA
03/07/24 14:38
EKG [Electrocardiogram (*1)] Urgent
Reason for Study: Chest Pain
EKG- Treatment ONCE
03/07/24 15:03
Troponin I Urgent
03/07/24 15:22
HYDROmorphone [Dilaudid] 0.5 mg IV NOW STA
03/07/24 16:08
Admit/Transfer Patient As Directed
Co-Sign Provider:
Level of Care: Inpatient admission
Assign to:: Medical/Surgical
Physician / Group: esteban
Diagnosis: back pain
Reason for Hospitalization: back pain
Expected length of stay greater than two midnights?: Yes
ELOS- Estimated Length of Stay in days: 3
I certify the patient meets the requirements for IP care: Yes
PRN Pain Medication Management As Directed
May give lesser potent ordered pain med per pt: Yes
preference::
Protocol:: Medication orders for pain may be administered in a
manner that supports deferring to patient preference
when the pt is:
- Requesting an ordered lesser potent pain medication.
Least to most potent pain medications are defined
as: acetaminophen < NSAID < tramadol < opioids
(morphine, oxycodone, hydromorphone).
- Requesting a lesser dose of the same medication IF
ORDERED.
- Requesting a less intrusive route of administration
if both routes are prescribed by the provider (PO <
IV).
03/07/24 16:10
Code Status As Directed
Resuscitation Status: Do not resuscitate
Reached after discussion with pt or family/Healthcare POA: Yes
DNR Bracelet Application ONCE
Abnormal Lab Results
03/07/24
11:58
RBC 3.74 L 10^6/uL
(4.20-5.40)
Hgb 11.3 L g/dL
(12.0-16.0)
Hct 33.6 L %
(37.0-47.0)
Abs Immat Gran (auto) 0.1 H 10^3/uL
(0-0.05)
Absolute Monos (auto) 1.0 H 10^3/uL
(0.1-0.6)
Immature Gran % 1.2 H %
(0-0.5)
Monocytes % 10.2 H %
(1.7-9.3)
03/07/24 11:58
03/07/24 11:58
Vital Signs
Initial and Last Documented VS:
Initial Vital Signs
Temp Pulse BP Pulse Ox
98.6 F 89 145/75 100
03/07/24 11:41 03/07/24 11:41 03/07/24 11:41 03/07/24 11:41
Last Documented Vital Signs
Temp Pulse BP Pulse Ox
98.6 F 89 145/74 99
03/07/24 11:41 03/07/24 11:41 03/07/24 11:41 03/07/24 11:41
MDM/Problems Addressed
Differential Diagnosis Includes:
not limited to: Pathologic fracture
MDM/Problems Addressed:
Patient is an 83-year-old female with bladder cancer currently presents for worsening low back pain. She has an MRI scheduled but is now not able to get around because of the back pain. She has no neurological deficits. Unfortunately CAT scan was
done and shows lytic lesion within the L2 vertebral body with associated subtle pathologic fracture of the superior and inferior endplates of vertebral body there is a lytic lesion within the medial and posterior right iliac bone subtle loss of
endplate definition involving the inferior endplate of L5 all likely bony metastatic lesions. 1438: At this time I discussed CAT scan results with patient and daughter at bedside patient now complains of some chest pressure will obtain EKG and order
troponin.
No acute findings on EKG troponin is pending. Patient has no complaints of shortness of breath symptoms not consistent with PE nontachycardic nonhypoxic non hypoxic. Patient does complain now more so of continued low back pain. Will give 0.5
mg of Dilaudid and admit to the hospital service.
chest pain resolved (Pt now reports she has had this before and believes it is just stress from finding out this poor news. Troponin negative)
Chronic conditions affecting care:
bladder cancer
*Radiology
Radiology exam reviewed: radiology read reviewed (CAT scan does show a lytic lesion within the L2 vertebral body with associated subtle pathologic fracture of the superior endplate vertebral body, lytic lesion at the medial and posterior superior
right iliac bone)
*Critical Care Note
Total Time (30-74mins, 75-104mins- exclusive of procedures): Not Applicable
ED Attending Note
-
Portions of this chart may have been created with voice recognition software.� Occasional wrong word or��sound alike� substitutions may have occurred due to the inherent limitations of voice recognition software.
Discharge Plan
Departure
Patient Disposition: Admit
Date of Disposition: 03/07/24
Time of Disposition: 15:26
Admit to: Med/Surg
Admit to doctor: hospitalist
Presentation/result/management discussed w/ accepting MD/DO: Hospitalist
Condition: Fair
Covid-19: Not Applicable
Discharge Problem:
Pathologic fracture of lumbar vertebra, metastatic bladder cancer
Prescriptions:
No Action
pantoprazole 40 MG tablet,delayed release (DR/EC)
40 mg PO DAILY
levothyroxine 125 MCG tablet
125 mcg PO DAILY
cholecalciferol (vitamin D3) 2,000 UNITS tablet
2,000 units PO DAILY
multivitamin with folic acid [Tab-A-Cesario] 1 TABLET tablet
1 tab PO DAILY
amlodipine 2.5 MG tablet
2.5 mg PO DAILY Qty: 0 0RF
cyanocobalamin (vitamin B-12) 1,000 mcg Tablet
1,000 mcg PO DAILY
acetaminophen [Tylenol Extra Strength] 500 mg Tablet
1,000 mg PO Q6HPRN PRN (Reason: mild pain)
calcium carbonate [Calcium 600] 600 mg calcium (1,500 mg) Tablet
600 mg PO BID
ibuprofen 200 mg Tablet
200 mg PO Q8HPRN PRN (Reason: mild pain)
methylprednisolone 4 mg Tablets,Dose Pack
0 mg PO PER PKG DIR
Patient Comments:
03/07/24: Patient states she had 2 doses left in the pack
escitalopram oxalate 10 mg Tablet
10 mg PO DAILY
Jublia 10 % Solution With Applicator
1 applic TOPICAL DAILYPRN PRN (Reason: toe infection)
Referrals:
Lauren Friedman CRNP [Family Provider] -
Interventions
Interventions:
*Risk Screen - Suicide Last Done: 03/07/24 11:44
*General Assessment Last Done: 03/07/24 11:44
*Neglect/Abuse Screening Last Done: 03/07/24 11:44
*ED COVID-19 Vaccine History Last Done: 03/07/24 11:44
Discharge Date and Time
Print Language: SINGAPORE[place]
[2024-03-07 12:17] LABS: % Basophils 0.4 % (0-2); % Eosinophils 0.4 % (0-6); % Immature Granulocytes 1.2 % (0-0.5); % Lymphocytes 30.9 % (20.5-51.1); % Monocytes 10.2 % (1.7-9.3); % Neutrophils 56.9 % (42.2-75.2); Absolute Immature Granulocytes 0.1 10^3/uL (0-0.05); Absolute Neutrophils 5.5 10^3/uL (1.4-6.5); Hematocrit 33.6 % (37.0-47.0); Hemoglobin 11.3 g/dL (12.0-16.0); Mean Corp Hgb Conc. 33.6 g/dL (33.0-37.0); Mean Corpuscular Hgb 30.2 pg (27.0-31.0); Mean Corpuscular Volume 89.8 fL (81.0-99.0); Mean Platelet Volume 9.6 fL (7.4-10.4); Nucleated Red Blood Cells % 0 %; Platelet Count 381 10^3/uL (130-400); Red Blood Cell Count 3.74 10^6/uL (4.20-5.40); Red Cell Dist. Width 13.3 % (11.5-14.5); White Blood Cell Count 9.7 10^3/uL (4.8-10.8)
[2024-03-07 12:27] LABS: ALT (SGPT) 15 U/L (0-35); AST (SGOT) 18 U/L (14-36); Albumin 3.8 g/dl (3.5-5.0); Alkaline Phosphatase 125 U/L (38-126); Blood Urea Nitrogen 13 mg/dl (7-17); Calcium 9.6 mg/dl (8.4-10.2); Carbon Dioxide 23 mmol/L (22-30); Chloride 107 mmol/L (98-107); Estimated Creatinine Clearance 49 ml/min; Glucose 88 mg/dl (70-99); Potassium 3.7 mmol/L (3.5-5.1); Sodium 142 mmol/L (135-145); Total Bilirubin 0.4 mg/dl (0.2-1.3); Total Protein 6.6 g/dl (6.3-8.2); eGFR > 60.00
[2024-03-07] MEDS: MORPHINE SULFATE 2 MG IV (13:10)
--- NOTE | 2024-03-07 15:39 | HPS.HSE ---
Addendum entered and electronically signed by Benjy Boston DO 03/07/24 16:47:
Patient seen and examined independently. Agree with findings and plan as set forth by MANFRED Rodriguez.
Patient is an 83y F with PMH significant for bladder cancer on Keytruda who presents to ED complaining of low back pain / L hip pain x several days. Patient has a prior history of similar pain due to DDD and thought that this was similar. She
had outpatient imaging appointments scheduled; however, her symptoms increased over the past few days and she was unable to ambulate without significant discomfort. She presented to the ED here where Imaging shows evidence of bony lesion in the L2
and L5 vertebral bodies suspicious for metastases. Patient denies any prior history of metastatic disease.
She was most recently hospitalized here about 2 weeks ago with CDiff colitis. She has completed her abx course and notes that her stools are not yet back to normal consistency.
Ass:
Low Back Pain / Lumbar Bony Lesions
Bladder Cancer with Possible Metastases
Lumbar DDD
Recent CDiff Colitis
Chronic Right Ureteral Stenosis / Chronic Stent
Benign Hypertension
Hypothyroidism
GERD / Shelby's Esophagus
Plan:
Admit for supportive care / pain control.
Oncology evaluation for additional recommendations.
Adjust medications as needed for control of symptoms.
PT / OT evaluations.
? XRT / RadOnc eval for localized treatment of painful bony lesions.
Continue other usual home medications.
Monitor stool frequency / consistency for any concern of recurrent / persistent CDiff.
Original Note:
Family Physician
-
Family Physician: Lauren Friedman
Chief Complaint
-
lower back pain
History of Present Illness
83-year-old female with current history of bladder cancer s/p TURBT, being treated with Keytruda by [facility], history of recent hospitalization(February 04 to February 11) for C. difficile colitis, history of hypertension lumbar
radiculopathy Shelby's esophagus presents to the ER via ambulance with back pain across the back radiating to left hip. she has chronic back pain, for past few days its radiating to left hip, which is affecting her activities of daily living. she
lives alone and she can barely walk and it hurts to sit.
She is only taking Tylenol and recently prescribed steroids without relief. she is using lidocaine as well. She has been followed at orthopedics and has seen Dr. Peterson in the past she does have a prescription for MRI but that was for 03/09. That
included an MRI of the lumbar spine as well as the cervical spine.
She reports no bowel incontinence no new bladder incontinence though she has some incontinence issues since bladder cancer this is not new. denied ALVARENGA, dizzy. denied fever, chills, chest pain, sob. denied abdominal pain, n,vl,d. denied dysuria or
hematuria.
CT with metastatic lesion and pathological fracture. patient received Dilaudid and morphine in ER. admitting for further management.
Medical History
Past Medical History
Past Medical History: Reports Other
Additional Past Medical History:
bladder cancer
lumbar radiculopathy
htn
UTI
hypothyroidism
depression
GERD
yoav esophagus
Past Surgical History: Reports Other
Additional Past Surgical History:
b/l Knee replacement
right hip replacement
cholecystectomy
cataract removal
Social History
Tobacco: Non-smoker
Alcohol: Occasional
Drug: None
Living: Alone
Family History
Family History: Not pertinent
Allergies / Home Medications
Allergies reflects when Allergies were last updated in [employer].
Home Medications with original date entered in [employer]
Allergy/Medication List:
Allergies
Allergy/AdvReac Type Severity Reaction Status Date / Time
hydrocodone [From Vicodin] Allergy made me Verified 02/05/24 19:18
loopy
Sulfa (Sulfonamide Allergy Hives/swell Verified 02/05/24 19:18
Antibiotics) ing/itching
Home Medications
cholecalciferol (vitamin D3) 50 mcg (2,000 unit) tablet 2,000 units PO DAILY Supplement 05/09/21
levothyroxine 125 mcg tablet 125 mcg PO DAILY Thyroid 05/09/21
multivitamin with folic acid 400 mcg tablet (Tab-A-Cesario) 1 tab PO DAILY Supplement 05/09/21
pantoprazole 40 mg tablet,delayed release 40 mg PO DAILY Gastrointestinal issue 05/09/21
amlodipine 2.5 mg tablet 2.5 mg PO DAILY Blood pressure ##0 06/05/21
acetaminophen 500 mg tablet (Tylenol Extra Strength) 1,000 mg PO Q6HPRN PRN mild pain 03/07/24
calcium carbonate (Calcium 600) 600 mg PO BID 03/07/24
cyanocobalamin (vitamin B-12) 1,000 mcg tablet 1,000 mcg PO DAILY 03/07/24
efinaconazole 10 % topical solution with applicator (Jublia) 1 applic topical DAILYPRN PRN toe infection 03/07/24
escitalopram oxalate 10 mg tablet 10 mg PO DAILY 03/07/24
ibuprofen 200 mg tablet 200 mg PO Q8HPRN PRN mild pain 03/07/24
methylprednisolone 4 mg tablets in a dose pack 0 mg PO PER PKG DIR 03/07/24
Review of Systems
-
Constitutional: Reports No Symptoms
EENT: Reports No Symptoms
Respiratory: Reports No Symptoms
Cardiac: Reports No Symptoms
Abdomen/GI: Reports No Symptoms
: Reports No Symptoms
Musculoskeletal: Reports Other (pain across the back to left hip)
Skin: Reports No Symptoms
Neurological: Reports No Symptoms
Endocrine: Reports No Symptoms
Hematologic/Lymphatic: Reports No Symptoms
Psych: Reports No Symptoms
Physical Exam
Vital Signs
Vital Signs
Temp Pulse BP Pulse Ox
98.6 F 89 145/74 99
03/07/24 11:41 03/07/24 11:41 03/07/24 11:41 03/07/24 11:41
Physical Exam
General: Well Developed, Well Nourished and No Apparent Distress
HEENT: NormoCephalic, Moist mucous membranes and Atraumatic
Respiratory: Clear
Cardiac: S1/S2 and Regular Rhythm; No Murmur or Rub
GI: Soft, Non Tender, Non Distended and Normal Bowel Sounds; No Organomegaly
Rectal: Deferred by Provider
Musculoskeletal: No Clubbing, No Cyanosis and No Edema
Skin: No Rash
Neuro: AO x 3 and Nonfocal/grossly intact
Psych: Calm
Laboratory Results
-
03/07/24 11:58
03/07/24 11:58
Laboratory Results
Total Bilirubin 0.4 mg/dl (0.2-1.3) 03/07/24 11:58
AST 18 U/L (14-36) 03/07/24 11:58
ALT 15 U/L (0-35) 03/07/24 11:58
Alkaline Phosphatase 125 U/L (38-126) 03/07/24 11:58
Data Reviewed
-
Diagnostic Radiology: Report Reviewed by me
CT Scan: Report Reviewed by me
Lab Data: Labs Reviewed by me
Impression/Plan
-
#lower back pain likely from metastatic disease/pathological fracture
-CT LE with the impression of small metastatic lesion involving the inferior aspect of the L5 vertebral body, with loss of definition of a small portion of the inferior endplate.Small lytic lesion within the medial left iliac bone superiorly, which
is likely bony metastatic disease.No evidence for fracture or dislocation. No other focal metastatic lesion involving the left hip or proximal femur. It should be noted that MRI or bone scan could be more sensitive for detection of bony metastatic
disease.Changes of degenerative disc disease in the lumbar spine including suggestion of significant central canal stenosis at L4-5.
-lumbar CT with Lytic lesion within the L2 vertebral body with associated subtle pathologic fracture of the superior and inferior endplates of the vertebral body.Lytic lesion within the medial and posterior and superior right iliac bone.Subtle loss
of endplate definition involving the inferior endplate of L5 as described, which is likely from a small adjacent bony lesion.These are very likely bony metastatic lesions.Stable compression deformity of L1 with no evidence for associated neoplastic
lesion.
-Tylenol ATC, lidocaine patch, Dilaudid prn for pain, tramadol prn for pain
-oncology consulted for metastatic lesion
-PT/OT consulted
#HTN
cont home amlodipine 2.5 mg daily
#Hypothyroidism
cont home levothyroxine 125 mcg daily
#Shelby's Esophagus--Unclear if she has had endoscopic ablation, remains on 40 mg pantoprazole daily--Should follow-up with gastroenterology and PCP after discharge
#Bladder Cancer--Diagnosed in 2021, s/p TURBT--Remains on Keytruda immunotherapy--Follows with oncology Dr [facility]
#Anxiety/Depression--Continued on home Lexapro, appears stable
DVT PPx: Lovenox subQ
CODE STATUS: DNR
[2024-03-07] MEDS: DILAUDID 0.5 MG IV (15:47)
[2024-03-07 15:51] LABS: Troponin I < 0.012 ng/ml
[2024-03-07] MEDS: DILAUDID 1 MG IV (19:54)
[2024-03-07] MEDS: LOVENOX 40 MG SC (19:54)
[2024-03-07] MEDS: OSCAL CAL 500 500 MG PO (19:54)
[2024-03-07] MEDS: LIDOCAINE 4% PATCH 1 PATCH TOPICAL (19:55)
[2024-03-07] MEDS: TYLENOL 1000 MG PO (21:59)
[2024-03-08] MEDS: DILAUDID 1 MG IV ×2 (05:26→22:01)
[2024-03-08] MEDS: SYNTHROID 125 MCG PO (05:27)
[2024-03-08 06:43] LABS: Hematocrit 32.8 % (37.0-47.0); Hemoglobin 10.7 g/dL (12.0-16.0); Mean Corp Hgb Conc. 32.6 g/dL (33.0-37.0); Mean Corpuscular Hgb 30.1 pg (27.0-31.0); Mean Corpuscular Volume 92.1 fL (81.0-99.0); Mean Platelet Volume 9.6 fL (7.4-10.4); Platelet Count 338 10^3/uL (130-400); Red Blood Cell Count 3.56 10^6/uL (4.20-5.40); Red Cell Dist. Width 13.6 % (11.5-14.5); White Blood Cell Count 8.3 10^3/uL (4.8-10.8)
--- NOTE | 2024-03-08 06:49 | W.PN.HOSP.TC ---
Today's Communication/Plan
-
pain control
pending bone scan
PT/OT
Assessment / Plan
Assessment / Plan
Physical Exam
General: Well Developed, Well Nourished and No Apparent Distress
HEENT: NormoCephalic, Moist mucous membranes and Atraumatic
Respiratory: Clear
Cardiac: S1/S2 and Regular Rhythm; No Murmur or Rub
GI: Soft, Non Tender, Non Distended and Normal Bowel Sounds; No Organomegaly
Musculoskeletal: No Clubbing, No Cyanosis and No Edema
Skin: No Rash
Neuro: AO x 3 and Nonfocal/grossly intact
Psych: Calm
83F Bladder Ca Keytruda s/p TURBT HTN Lumbar radiculopathy Ian's Esophagus p/w acute on chronic back pain and imaging concerning for metastasis
#lower back pain likely from metastatic disease/pathological fracture
-CT LE with the impression of small metastatic lesion involving the inferior aspect of the L5 vertebral body, with loss of definition of a small portion of the inferior endplate.Small lytic lesion within the medial left iliac bone superiorly, which
is likely bony metastatic disease.No evidence for fracture or dislocation. No other focal metastatic lesion involving the left hip or proximal femur. It should be noted that MRI or bone scan could be more sensitive for detection of bony metastatic
disease.Changes of degenerative disc disease in the lumbar spine including suggestion of significant central canal stenosis at L4-5.
-lumbar CT with Lytic lesion within the L2 vertebral body with associated subtle pathologic fracture of the superior and inferior endplates of the vertebral body.Lytic lesion within the medial and posterior and superior right iliac bone.Subtle loss
of endplate definition involving the inferior endplate of L5 as described, which is likely from a small adjacent bony lesion.These are very likely bony metastatic lesions.Stable compression deformity of L1 with no evidence for associated neoplastic
lesion.
-Tylenol ATC, lidocaine patch, Dilaudid prn for pain, tramadol prn for pain
-oncology consult eval appreciated CT chest appreciated no acute abn's, no pulm metastasis, bone scan pending
-PT/OT appreciated
#HTN
cont home amlodipine 2.5 mg daily
#Hypothyroidism
cont home levothyroxine 125 mcg daily
#Shelby's Esophagus-- cont 40 mg pantoprazole daily--Should follow-up with gastroenterology and PCP after discharge
#Bladder Cancer--Diagnosed in 2021, s/p TURBT--Remains on Keytruda immunotherapy--Follows with oncology Dr Castillo [facility]
#Anxiety/Depression--Continued on home Lexapro, appears stable
DVT PPx: Lovenox subQ
CODE STATUS: DNR
Discussed with patient and daughter Marylou
I spent a total of 50 minutes with the patient or on the floor. More than 50% of this time involved counseling and coordination of care.
Anticipated Discharge: 24 - 48 hours
Subjective/Interval History
-
Date of Service: March 08, 2024
No acute distress. Comfortable at rest.
Objective Data
-
Labs:
Laboratory Results
03/08/24
05:53
WBC 8.3
Hgb 10.7 L
Hct 32.8 L
Plt Count 338
Sodium Pending
Potassium Pending
Chloride Pending
Carbon Dioxide Pending
BUN Pending
Creatinine Pending
Glucose Pending
Calcium Pending
Vital Signs:
Vital Signs
Temp Pulse Resp BP Pulse Ox
98.8 F 98 18 129/58 95
03/07/24 23:34 03/07/24 23:34 03/07/24 23:34 03/07/24 23:34 03/07/24 23:34
I&O
03/06/24 03/07/24 03/08/24
06:59 06:59 06:59
Intake Total 480 / 480
Balance 480 / 480
[2024-03-08 07:13] VITALS: BP 104/59
[2024-03-08 07:40] LABS: Blood Urea Nitrogen 14 mg/dl (7-17); Carbon Dioxide 27 mmol/L (22-30); Chloride 106 mmol/L (98-107); Estimated Creatinine Clearance 38 ml/min; Glucose 93 mg/dl (70-99); Sodium 143 mmol/L (135-145); eGFR > 60.00
[2024-03-08] MEDS: TYLENOL 1000 MG PO ×3 (09:05→21:16)
[2024-03-08] MEDS: OSCAL CAL 500 500 MG PO ×2 (09:05→21:00)
[2024-03-08] MEDS: VITAMIN B-12 1000 MCG PO (09:06)
[2024-03-08] MEDS: VITAMIN D3 (cholecalciferol) 50 MCG PO (09:06)
[2024-03-08] MEDS: PROTONIX 40 MG PO (09:06)
[2024-03-08] MEDS: NORVASC PO (09:06)
[2024-03-08] MEDS: LIDOCAINE 4% PATCH TOPICAL (09:07)
[2024-03-08] MEDS: LEXAPRO 10 MG PO (09:07)
[2024-03-08 09:44] VITALS: BP 139/76; PULSE 91; O2SAT 94
[2024-03-08 09:46] VITALS: BP 139/76; PULSE 89; O2SAT 98
--- NOTE | 2024-03-08 14:03 | WOUNDNOTE ---
[facility] RN NOTE: Reviewed chart and met with patient. Patient reports frequent urinary incontinence due to bladder cancer. She reports frequent changes at home with use of barrier ointment. Upon assessment patient has several open areas attributed to
MASD. Patient should continue with barrier ointment, frequent incontinence care and frequent position changes. Heels intact. Patient demonstrates a good appetite and can transfer herself from bed to stretcher with assistance. EMBER Ingram update on
plan.
[2024-03-08 15:55] VITALS: BP 127/79
[2024-03-08 16:56] VITALS: BMI 26.2
[2024-03-08] MEDS: LOVENOX 40 MG SC (17:03)
--- NOTE | 2024-03-08 17:28 | CM ---
Patient seen at bedside with daughter Marylou.
Recently had hospital stay at w/CDIFF
IA completed. Dx: back pain, PMH: bladder ca on Keytruda
Patient for bone scan tomorrow
Patient lives at home alone in an apartment no steps to enter.
PLOF: Independent and started using a cane d/t back pain
DME in home: cane, grab bars & has a fall bracelet.
Denies any food/housing/utilities/transportation insecurities.
PT recommends SNF vs. 24 hr care.
Options for SNF given to patient/daughter. Reluctant with SNF, but agreeable to HH
PCP: Lauren Friedman
Pharmacy: [facility]
PLAN: Discharge when medically stable, SNF vs. HH
--- NOTE | 2024-03-08 21:44 | CON.ONC ---
Impression
Impression
Bladder cancer believed to be minimally invasive, now with apparent metastases to bone
Cancer related pain
Plan
Plan
Discussed possibility of radiation with goal of improving patient comfort and preventing worsening pain and weakness. Patient deciding now whether she wants to do anything else in terms of treatment. She wants to know where else the disease might
be at this time.
CT chest, bone scan now.
Encouraged to consult with radiation oncology to discuss side effects and benefits. Patient states she does not want to be burned.
Pain controlled on current regimen.
Anticipate outpatient Xgeva or Zometa for skeletal protection.
Suspect that consideration will be given to resuming Keytruda with addition of enfortumab.
Thank you for consult, will follow along with you.
Patient History
History of Present Illness
83-year-old woman with history of T1 high-grade bladder cancer, previously with persistent disease despite intravesical BCG and gemcitabine. Patient with started on Keytruda by Dr. Keita, treatment course complicated by C. difficile +/- immune
mediated colitis. She was last treated in November or December. Patient has been having some issues with back pain, which worsened to the point that she was unable to ambulate. She presented to the [facility] ER with these complaints where
imaging showed evidence of bony lesions in L2 and L5 vertebral body suspicious for metastases. The L2 lesion measures 2.6 x 2.4 cm and slightly extends into right anterior lateral epidural space. There may be subtle pathologic fracture. She also
has lytic lesions in right iliac bone. Pain not relieved by Tylenol. Patient's daughter reports that she and her mother have both wanted to avoid radiation although daughter is now reconsidering. Denies cough, other areas of bone pain.
Past-Medical/Surgical History
Past Medical History:
bladder cancer
lumbar radiculopathy
htn
UTI
hypothyroidism
depression
GERD
yoav esophagus
Past Surgical History:
b/l Knee replacement
right hip replacement
cholecystectomy
cataract removal
Social History
Tobacco: Non-smoker
Alcohol: Occasional
Drug: None
Living: Alone
Family History
Family History: Not pertinent
Patient Medication
�Medication �Instructions �Recorded �Confirmed �Last Taken �Type
cholecalciferol (vitamin D3) 50 2,000 units PO DAILY Supplement 05/09/21 03/07/24 03/06/24 History
mcg (2,000 unit) tablet
levothyroxine 125 mcg tablet 125 mcg PO DAILY Thyroid 05/09/21 03/07/24 03/07/24 History
multivitamin with folic acid 400 1 tab PO DAILY Supplement 05/09/21 03/07/24 03/06/24 History
mcg tablet (Tab-A-Cesario)
pantoprazole 40 mg tablet,delayed 40 mg PO DAILY Gastrointestinal 05/09/21 03/07/24 03/06/24 History
release issue
amlodipine 2.5 mg tablet 2.5 mg PO DAILY Blood pressure ##0 06/05/21 03/07/24 03/06/24 Rx
acetaminophen 500 mg tablet 1,000 mg PO Q6HPRN PRN mild pain 03/07/24 03/07/24 Unknown History
(Tylenol Extra Strength)
calcium carbonate (Calcium 600) 600 mg PO BID 03/07/24 03/07/24 03/06/24 History
cyanocobalamin (vitamin B-12) 1,000 mcg PO DAILY 03/07/24 03/07/24 03/06/24 History
1,000 mcg tablet
efinaconazole 10 % topical 1 applic topical DAILYPRN PRN toe 03/07/24 03/07/24 Unknown History
solution with applicator (Jublia) infection
escitalopram oxalate 10 mg tablet 10 mg PO DAILY 03/07/24 03/07/24 03/06/24 History
ibuprofen 200 mg tablet 200 mg PO Q8HPRN PRN mild pain 03/07/24 03/07/24 Unknown History
methylprednisolone 4 mg tablets in 0 mg PO PER PKG DIR 03/07/24 03/07/24 03/06/24 History
a dose pack
Active Medications
Generic Name Dose Route Start Last Admin
Trade Name Freq PRN Reason Stop Dose Admin
Acetaminophen 1,000 mg 03/07/24 22:00 03/08/24 21:16
Acetaminophen 500 Mg Tablet PO 04/04/24 21:59 1,000 mg
TID NICOLE Administration
Amlodipine Besylate 2.5 mg 03/08/24 08:00 03/08/24 09:06
Amlodipine 2.5 Mg Tablet PO 04/05/24 07:59 Not Given
DAILY NICOLE
Bisacodyl 10 mg 03/07/24 18:52
Bisacodyl 10 Mg Rectal Suppository RECTAL 04/04/24 18:51
[id number] PRN
constipation
Calcium Carbonate 500 mg 03/07/24 20:00 03/08/24 21:00
Calcium Carbonate 500 Mg Tablet PO 04/04/24 19:59 500 mg
BID NICOLE Administration
Cholecalciferol 50 mcg 03/08/24 08:00 03/08/24 09:06
Cholecalciferol (Vitamin D3) 50 Mcg Tablet (2,000 Units) PO 04/05/24 07:59 50 mcg
DAILY NICOLE Administration
Cyanocobalamin 1,000 mcg 03/08/24 08:00 03/08/24 09:06
Cyanocobalamin 1,000 Mcg Tablet PO 04/05/24 07:59 1,000 mcg
DAILY NICOLE Administration
Enoxaparin Sodium 40 mg 03/07/24 18:52 03/08/24 17:03
Enoxaparin Sodium 40 Mg/0.4 Ml Syringe SC 04/04/24 18:51 40 mg
QPM NICOLE Administration
Escitalopram Oxalate 10 mg 03/08/24 08:00 03/08/24 09:07
Escitalopram 10 Mg Tablet PO 04/05/24 07:59 10 mg
DAILY NICOLE Administration
Hydromorphone HCl 1 mg 03/07/24 18:56 03/08/24 05:26
Hydromorphone 1 Mg/Ml Carpuject IV 03/21/24 18:55 1 mg
Q4HPRN PRN Administration
severe pain
Levothyroxine Sodium 125 mcg 03/08/24 06:00 03/08/24 05:27
Levothyroxine 125 Mcg Tablet PO 04/05/24 05:59 125 mcg
DAILY@0600 NICOLE Administration
Lidocaine 1 patch 03/07/24 18:52 03/08/24 09:07
Lidocaine 4% Topical Patch TOPICAL 04/04/24 18:51 Not Given
DAILY NICOLE
Protocol
Pantoprazole Sodium 40 mg 03/08/24 08:00 03/08/24 09:06
Pantoprazole 40 Mg Delayed Release Tablet PO 04/05/24 07:59 40 mg
DAILY NICOLE Administration
Polyethylene Glycol 17 grams 03/07/24 18:52
Polyethylene Glycol Powder 17 Grams Packet PO 04/04/24 18:51
DAILYPRN PRN
constipation
Senna/Docusate Sodium 1 tablet 03/07/24 18:52
Docusate W/Senna (Jaci-Colace) Tablet PO 04/04/24 18:51
BIDPRN PRN
constipation
Sodium Chloride 0 flush 03/07/24 20:00
Sodium Chloride 0.9% (Flush) Syringe IV 04/04/24 19:59
PER PROTOCOL NICOLE
Tramadol HCl 100 mg 03/07/24 18:52
Tramadol Hcl 50 Mg Tablet PO 04/04/24 18:51
[id number] PRN
moderate pain
Physical Exam
-
General: Well Developed, Well Nourished and Conversant
Labs
Lab Results
WBC 8.3 10^3/uL (4.8-10.8) 03/08/24 05:53
RBC 3.56 10^6/uL (4.20-5.40) L 03/08/24 05:53
Hgb 10.7 g/dL (12.0-16.0) L 03/08/24 05:53
Hct 32.8 % (37.0-47.0) L 03/08/24 05:53
MCV 92.1 fL (81.0-99.0) 03/08/24 05:53
MCH 30.1 pg (27.0-31.0) 03/08/24 05:53
MCHC 32.6 g/dL (33.0-37.0) L 03/08/24 05:53
RDW 13.6 % (11.5-14.5) 03/08/24 05:53
Plt Count 338 10^3/uL (130-400) 03/08/24 05:53
MPV 9.6 fL (7.4-10.4) 03/08/24 05:53
Abs Immat Gran (auto) 0.1 10^3/uL (0-0.05) H 03/07/24 11:58
Absolute Neuts (auto) 5.5 10^3/uL (1.4-6.5) 03/07/24 11:58
Absolute Lymphs (auto) 3.0 10^3/uL (1.2-3.4) 03/07/24 11:58
Absolute Monos (auto) 1.0 10^3/uL (0.1-0.6) H 03/07/24 11:58
Absolute Eos (auto) 0.0 10^3/uL (0-0.7) 03/07/24 11:58
Absolute Basos (auto) 0.0 10^3/uL (0-0.2) 03/07/24 11:58
Immature Gran % 1.2 % (0-0.5) H 03/07/24 11:58
Neutrophils % 56.9 % (42.2-75.2) 03/07/24 11:58
Lymphocytes % 30.9 % (20.5-51.1) 03/07/24 11:58
Monocytes % 10.2 % (1.7-9.3) H 03/07/24 11:58
Eosinophils % 0.4 % (0-6) 03/07/24 11:58
Basophils % 0.4 % (0-2) 03/07/24 11:58
Creatinine 0.9 mg/dL (0.6-1.0) 03/08/24 05:53
Vital Signs
Vital Signs
Temp Pulse Resp BP Pulse Ox
99.5 F 94 16 127/79 95
03/08/24 15:55 03/08/24 15:55 03/08/24 15:55 03/08/24 15:55 03/08/24 15:55
[2024-03-08 23:06] VITALS: BP 115/56
[2024-03-09] MEDS: SYNTHROID 125 MCG PO (05:23)
[2024-03-09 06:43] LABS: Hematocrit 32.7 % (37.0-47.0); Hemoglobin 10.9 g/dL (12.0-16.0); Mean Corp Hgb Conc. 33.3 g/dL (33.0-37.0); Mean Corpuscular Hgb 30.1 pg (27.0-31.0); Mean Corpuscular Volume 90.3 fL (81.0-99.0); Mean Platelet Volume 9.6 fL (7.4-10.4); Platelet Count 343 10^3/uL (130-400); Red Blood Cell Count 3.62 10^6/uL (4.20-5.40); Red Cell Dist. Width 13.7 % (11.5-14.5); White Blood Cell Count 9.4 10^3/uL (4.8-10.8)
[2024-03-09 07:03] LABS: Blood Urea Nitrogen 18 mg/dl (7-17); Calcium 8.8 mg/dl (8.4-10.2); Carbon Dioxide 28 mmol/L (22-30); Chloride 104 mmol/L (98-107); Estimated Creatinine Clearance 43 ml/min; Glucose 100 mg/dl (70-99); Potassium 4.5 mmol/L (3.5-5.1); Sodium 141 mmol/L (135-145); eGFR > 60.00
[2024-03-09 07:25] VITALS: BP 153/75
--- NOTE | 2024-03-09 07:47 | W.PN.HOSP.TC ---
Addendum entered and electronically signed by Janice Shipman MD 03/10/24 05:07:
Stage 2 bilateral buttock pressure injuries, POA
-cont local wound care
Original Note:
Today's Communication/Plan
-
PT/OT
pain control
planned for IR biopsy bone metastasis possibly Thurs
Assessment / Plan
Assessment / Plan
Physical Exam
General: Well Developed, Well Nourished and No Apparent Distress
HEENT: NormoCephalic, Moist mucous membranes and Atraumatic
Respiratory: Clear
Cardiac: S1/S2 and Regular Rhythm; No Murmur or Rub
GI: Soft, Non Tender, Non Distended and Normal Bowel Sounds; No Organomegaly
Musculoskeletal: No Clubbing, No Cyanosis and No Edema
Skin: No Rash
Neuro: AO x 3 and Nonfocal/grossly intact
Psych: Calm
83F Bladder Ca Keytruda s/p TURBT HTN Lumbar radiculopathy Ian's Esophagus p/w acute on chronic back pain and imaging concerning for metastasis
#lower back pain likely from metastatic disease/pathological fracture
-CT LE with the impression of small metastatic lesion involving the inferior aspect of the L5 vertebral body, with loss of definition of a small portion of the inferior endplate.Small lytic lesion within the medial left iliac bone superiorly, which
is likely bony metastatic disease.No evidence for fracture or dislocation. No other focal metastatic lesion involving the left hip or proximal femur. It should be noted that MRI or bone scan could be more sensitive for detection of bony metastatic
disease.Changes of degenerative disc disease in the lumbar spine including suggestion of significant central canal stenosis at L4-5.
-lumbar CT with Lytic lesion within the L2 vertebral body with associated subtle pathologic fracture of the superior and inferior endplates of the vertebral body.Lytic lesion within the medial and posterior and superior right iliac bone.Subtle loss
of endplate definition involving the inferior endplate of L5 as described, which is likely from a small adjacent bony lesion.These are very likely bony metastatic lesions.Stable compression deformity of L1 with no evidence for associated neoplastic
lesion.
-Tylenol ATC, lidocaine patch, Dilaudid prn for pain, tramadol prn for pain
-oncology consult eval appreciated CT chest appreciated no acute abn's, no pulm metastasis, bone scan results pending
-discussed with oncology and IR, patient planned for biopsy suspected right iliac bone metastasis possibly , patient will need to be NPO for procedure.
-PT/OT appreciated
#HTN
cont home amlodipine 2.5 mg daily
#Hypothyroidism
cont home levothyroxine 125 mcg daily
#Shelby's Esophagus-- cont 40 mg pantoprazole daily--Should follow-up with gastroenterology and PCP after discharge
#Bladder Cancer--Diagnosed in 2021, s/p TURBT--Remains on Keytruda immunotherapy--Follows with oncology Dr [facility]
#Anxiety/Depression--Continued on home Lexapro, appears stable
DVT PPx: Lovenox subQ
CODE STATUS: DNR
Discussed with patient and daughter Marylou
I spent a total of 40 minutes with the patient or on the floor. More than 50% of this time involved counseling and coordination of care.
Anticipated Discharge: 24 - 48 hours
Subjective/Interval History
-
Date of Service: March 09, 2024
Reports improvement in pain and bowel movements
Objective Data
-
Labs:
Laboratory Results
03/09/24
05:48
WBC 9.4
Hgb 10.9 L
Hct 32.7 L
Plt Count 343
Sodium 141
Potassium 4.5
Chloride 104
Carbon Dioxide 28
BUN 18 H
Creatinine 0.8
Glucose 100 H
Calcium 8.8
Vital Signs:
Vital Signs
Temp Pulse Resp BP Pulse Ox
98.6 F 92 16 115/56 95
03/08/24 23:06 03/08/24 23:06 03/08/24 23:06 03/08/24 23:06 03/08/24 23:06
I&O
03/08/24 03/09/24 03/10/24
06:59 06:59 06:59
Intake Total 480 / 480 1300 / 1300
Balance 480 / 480 1300 / 1300
--- NOTE | 2024-03-09 07:47 | PN.CDI ---
CDI
- -
CDI:
Physician Documentation Request
Admit Date: 03/07/24 16:29
Dear Doctor Umberto,
Patient admitted with lower back pain likely from metastatic disease/pathological fracture.
03/08 Nursing skin assessment, 'Stage 2 bilateral buttock pressure injuries, POA.'
Physician documentation of the type and location of wounds is required for compliant documentation. Based on the above clinical findings and your assessment, please provide the following in your progress note:
Type (etiology) of ulcer/wound:
- Pressure (decubitus) ulcer
- Other
- Unable to determine
For a pressure ulcer, please also include the stage* of the ulcer:
- Stage 1 - Skin intact, non-blanchable redness
- Stage 2 - Partial thickness loss of dermis, includes intact or open blister
- Stage 3 - Full thickness tissue not including bone, tendon or muscle
- Stage 4 - Full thickness tissue loss, including exposed bone, tendon or muscle
- Unstageable - Full thickness loss in which the base of the ulcer is covered by slough (yellow, wilkinson, baker, green or brown) and/or eschar (wilkinson, brown or black) in the wound bed.
- Unable to determine
Use of terms such as suspected, likely, concern for, or probable (associated with a specific diagnosis that is being evaluated, monitored, or treated as if it exists) are acceptable and can be coded in the inpatient setting, when documented at the
time of discharge.
Thank you,
Kamila MAST,RN,CCDS
CDI Specialist
Available via [place] text
;
Please use your independent medical judgment in providing your response.
*Source: National Pressure Ulcer Advisory Panel (NPUAP)
[2024-03-09] MEDS: LIDOCAINE 4% PATCH 1 PATCH TOPICAL (08:36)
[2024-03-09] MEDS: TYLENOL 1000 MG PO ×3 (08:37→21:00)
[2024-03-09] MEDS: PROTONIX 40 MG PO (08:37)
[2024-03-09] MEDS: VITAMIN D3 (cholecalciferol) 50 MCG PO (08:37)
[2024-03-09] MEDS: OSCAL CAL 500 500 MG PO ×2 (08:37→20:00)
[2024-03-09] MEDS: DILAUDID 1 MG IV ×3 (08:37→22:05)
[2024-03-09] MEDS: LEXAPRO 10 MG PO (08:42)
[2024-03-09] MEDS: VITAMIN B-12 1000 MCG PO (08:42)
[2024-03-09] MEDS: NORVASC 2.5 MG PO (08:42)
[2024-03-09] MEDS: ULTRAM 100 MG PO (11:12)
[2024-03-09 15:25] VITALS: BP 131/60
--- NOTE | 2024-03-09 15:46 | CM ---
Reviewed the chart notes and spoke with the patient and her granddaughter at the bedside. The patient and family have not decided on whether radiation treatment will be needed vs continued outpatient chemo therapy. Patient had nuclear bone scan
today, results pending. CM continues to be available to patient/family and is monitoring medical plan for needs at discharge.
Plan: Discharge plans will depend on the patient's progress.
[2024-03-09 16:06] VITALS: BP 133/58; PULSE 82; O2SAT 96
[2024-03-09] MEDS: LOVENOX 40 MG SC (17:18)
[2024-03-09 23:26] VITALS: BP 106/50
[2024-03-10] MEDS: SYNTHROID 125 MCG PO (05:52)
[2024-03-10 06:38] LABS: Hematocrit 35.6 % (37.0-47.0); Hemoglobin 11.8 g/dL (12.0-16.0); Mean Corp Hgb Conc. 33.1 g/dL (33.0-37.0); Mean Corpuscular Hgb 29.8 pg (27.0-31.0); Mean Corpuscular Volume 89.9 fL (81.0-99.0); Mean Platelet Volume 9.3 fL (7.4-10.4); Platelet Count 410 10^3/uL (130-400); Red Blood Cell Count 3.96 10^6/uL (4.20-5.40); Red Cell Dist. Width 13.5 % (11.5-14.5); White Blood Cell Count 11.4 10^3/uL (4.8-10.8)
[2024-03-10 07:00] VITALS: BP 141/69
[2024-03-10 07:04] LABS: Blood Urea Nitrogen 19 mg/dl (7-17); Calcium 9.8 mg/dl (8.4-10.2); Carbon Dioxide 27 mmol/L (22-30); Chloride 102 mmol/L (98-107); Estimated Creatinine Clearance 43 ml/min; Glucose 110 mg/dl (70-99); Potassium 4.5 mmol/L (3.5-5.1); Sodium 141 mmol/L (135-145); eGFR > 60.00
--- NOTE | 2024-03-10 07:16 | W.PN.HOSP.TC ---
Today's Communication/Plan
-
cont pain control, trial scheduled Tramadol and Naproxen added
NPO after midnight for IR biopsy bone metastasis
Diet switched to Low residue d/t intermittent episodes diarrhea
cont pain control
PT/OT
Assessment / Plan
Assessment / Plan
Physical Exam
General: Well Developed, Well Nourished and No Apparent Distress
HEENT: NormoCephalic, Moist mucous membranes and Atraumatic
Respiratory: Clear
Cardiac: S1/S2 and Regular Rhythm; No Murmur or Rub
GI: Soft, Non Tender, Non Distended and Normal Bowel Sounds; No Organomegaly
Musculoskeletal: No Clubbing, No Cyanosis and No Edema
Skin: No Rash
Neuro: AO x 3 and Nonfocal/grossly intact
Psych: Calm
83F Bladder Ca Keytruda s/p TURBT HTN Lumbar radiculopathy Ian's Esophagus p/w acute on chronic back pain and imaging concerning for metastasis
#lower back pain likely from metastatic disease/pathological fracture
-CT LE with the impression of small metastatic lesion involving the inferior aspect of the L5 vertebral body, with loss of definition of a small portion of the inferior endplate.Small lytic lesion within the medial left iliac bone superiorly, which
is likely bony metastatic disease.No evidence for fracture or dislocation. No other focal metastatic lesion involving the left hip or proximal femur. It should be noted that MRI or bone scan could be more sensitive for detection of bony metastatic
disease.Changes of degenerative disc disease in the lumbar spine including suggestion of significant central canal stenosis at L4-5.
-lumbar CT with Lytic lesion within the L2 vertebral body with associated subtle pathologic fracture of the superior and inferior endplates of the vertebral body.Lytic lesion within the medial and posterior and superior right iliac bone.Subtle loss
of endplate definition involving the inferior endplate of L5 as described, which is likely from a small adjacent bony lesion.These are very likely bony metastatic lesions.Stable compression deformity of L1 with no evidence for associated neoplastic
lesion.
-Tylenol ATC, lidocaine patch, Dilaudid prn for pain, tramadol prn for pain, scheduled pain meds Tylenol, Tramadol, and Naproxen
-oncology consult eval appreciated CT chest appreciated no acute abn's, no pulm metastasis, bone scan results pending
-discussed with oncology and IR, patient planned for biopsy suspected iliac bone metastasis Tomorrow/, NPO after midnight
-PT/OT appreciated
Intermittent episodes diarrhea
-diet switched to Low residue
#HTN
cont home amlodipine 2.5 mg daily
#Hypothyroidism
cont home levothyroxine 125 mcg daily
#Shelby's Esophagus-- cont 40 mg pantoprazole daily--Should follow-up with gastroenterology and PCP after discharge
#Bladder Cancer--Diagnosed in 2021, s/p TURBT--Remains on Keytruda immunotherapy--Follows with oncology Dr Jonathan Lerma [facility]
#Anxiety/Depression--Continued on home Lexapro, appears stable
DVT PPx: Lovenox subQ
CODE STATUS: DNR
Discussed with patient and pt's daughter Marylou
I spent a total of 40 minutes with the patient or on the floor. More than 50% of this time involved counseling and coordination of care.
Anticipated Discharge: 24 - 48 hours
Subjective/Interval History
-
Date of Service: March 10, 2024
No acute distress resting comfortably in bed. Back pain persists exacerbated with exertion prolonged sitting up. Reports episode liquid diarrhea overnight.
Objective Data
-
Labs:
Laboratory Results
03/10/24
06:25
WBC 11.4 H
Hgb 11.8 L
Hct 35.6 L
Plt Count 410 H
Sodium 141
Potassium 4.5
Chloride 102
Carbon Dioxide 27
BUN 19 H
Creatinine 0.8
Glucose 110 H
Calcium 9.8
Vital Signs:
Vital Signs
Temp Pulse Resp BP Pulse Ox
98.6 F 83 18 106/50 95
03/09/24 23:26 03/09/24 23:26 03/09/24 23:26 03/09/24 23:26 03/09/24 23:26
I&O
03/09/24 03/10/24 03/11/24
06:59 06:59 06:59
Intake Total 1300 / 1300 1320 / 1320
Balance 1300 / 1300 1320 / 1320
[2024-03-10] MEDS: LIDOCAINE 4% PATCH 1 PATCH TOPICAL (08:16)
[2024-03-10] MEDS: VITAMIN D3 (cholecalciferol) 50 MCG PO (08:16)
[2024-03-10] MEDS: PROTONIX 40 MG PO (08:16)
[2024-03-10] MEDS: OSCAL CAL 500 500 MG PO ×2 (08:16→21:00)
[2024-03-10] MEDS: TYLENOL 1000 MG PO ×3 (08:17→21:00)
[2024-03-10] MEDS: VITAMIN B-12 1000 MCG PO (08:17)
[2024-03-10] MEDS: NORVASC 2.5 MG PO (08:17)
[2024-03-10] MEDS: LEXAPRO 10 MG PO (08:17)
--- NOTE | 2024-03-10 09:56 | CM ---
Addendum entered by Suzanne Cook RN 03/10/24 15:45:
CM spoke with the patient's daughter at the bedside. The patient is choosing to discharge to home with VN and radiation treatment. Referral for VN sent via [facility].
Original Note:
Reviewed the chart notes. Per notes, plan is for IR biopsy bone metastasis possibly . CM continues to be available to patient/family and is monitoring medical plan for needs at discharge.
Plan: Discharge plans will depend on the patient's decision on treatment plans. The patient is aware that if she choses radiation treatment, SNF will not be an option.
[2024-03-10] MEDS: ULTRAM 100 MG PO (10:16)
[2024-03-10] MEDS: NAPROSYN 250 MG PO ×2 (11:46→21:00)
[2024-03-10 12:15] VITALS: BP 141/69; PULSE 92
[2024-03-10 15:00] VITALS: BP 121/64
[2024-03-10] MEDS: LOVENOX 40 MG SC (17:09)
[2024-03-10] MEDS: ULTRAM 50 MG PO (21:00)
[2024-03-10 23:29] VITALS: BP 124/56
[2024-03-11] MEDS: SYNTHROID PO ×2 (05:26)
[2024-03-11 06:00] VITALS: BMI 25.3
[2024-03-11] MEDS: DILAUDID 1 MG IV (06:39)
[2024-03-11 07:00] VITALS: BP 129/61
--- NOTE | 2024-03-11 07:28 | W.PN.HOSP.TC ---
Today's Communication/Plan
-
Pain control
MS contin as per Oncology
cont low residue diet, check cdiff stool cultures
PT/OT
Assessment / Plan
Assessment / Plan
Physical Exam
General: Well Developed, Well Nourished and No Apparent Distress
HEENT: NormoCephalic, Moist mucous membranes and Atraumatic
Respiratory: Clear
Cardiac: S1/S2 and Regular Rhythm; No Murmur or Rub
GI: Soft, Non Tender, Non Distended and Normal Bowel Sounds; No Organomegaly
Musculoskeletal: No Clubbing, No Cyanosis and No Edema
Skin: No Rash
Neuro: AO x 3 and Nonfocal/grossly intact
Psych: Calm
83F Bladder Ca Keytruda s/p TURBT HTN Lumbar radiculopathy Ian's Esophagus p/w acute on chronic back pain and imaging concerning for metastasis
#lower back pain likely from metastatic disease/pathological fracture
-CT LE with the impression of small metastatic lesion involving the inferior aspect of the L5 vertebral body, with loss of definition of a small portion of the inferior endplate.Small lytic lesion within the medial left iliac bone superiorly, which
is likely bony metastatic disease.No evidence for fracture or dislocation. No other focal metastatic lesion involving the left hip or proximal femur. It should be noted that MRI or bone scan could be more sensitive for detection of bony metastatic
disease.Changes of degenerative disc disease in the lumbar spine including suggestion of significant central canal stenosis at L4-5.
-lumbar CT with Lytic lesion within the L2 vertebral body with associated subtle pathologic fracture of the superior and inferior endplates of the vertebral body.Lytic lesion within the medial and posterior and superior right iliac bone.Subtle loss
of endplate definition involving the inferior endplate of L5 as described, which is likely from a small adjacent bony lesion.These are very likely bony metastatic lesions.Stable compression deformity of L1 with no evidence for associated neoplastic
lesion.
-Tylenol ATC, lidocaine patch, Dilaudid prn for pain, tramadol prn for pain, scheduled pain meds Tylenol, Tramadol, and Naproxen
-started on MS contin as per oncology
-oncology consult eval appreciated CT chest appreciated no acute abn's, no pulm metastasis, bone scan results appreciated
-IR joy appreciated CT guided biopsy of osteolytic lesion within the posterior right iliac bone completed 03/11 bx results pending
-PT/OT appreciated home health
Intermittent episodes diarrhea
-diet switched to Low residue
-check Cdiff stool cultures
#HTN
cont home amlodipine 2.5 mg daily
#Hypothyroidism
cont home levothyroxine 125 mcg daily
#Shelby's Esophagus-- cont 40 mg pantoprazole daily--Should follow-up with gastroenterology and PCP after discharge
#Bladder Cancer--Diagnosed in 2021, s/p TURBT--Remains on Keytruda immunotherapy--Follows with oncology Dr Jonathan Lerma Cancer
#Anxiety/Depression--Continued on home Lexapro, appears stable
DVT PPx: Lovenox subQ
CODE STATUS: DNR
Discussed with patient and pt's daughter Marylou
I spent a total of 40 minutes with the patient or on the floor. More than 50% of this time involved counseling and coordination of care.
Anticipated Discharge: Within 24 hours
Subjective/Interval History
-
Date of Service: March 11, 2024
Endorsed episode of diarrhea. Pain controlled at rest. Overall reports feeling well.
Objective Data
-
Labs:
Laboratory Results
03/11/24
06:00
WBC Pending
Hgb Pending
Hct Pending
Plt Count Pending
Sodium Pending
Potassium Pending
Chloride Pending
Carbon Dioxide Pending
BUN Pending
Creatinine Pending
Glucose Pending
Calcium Pending
Vital Signs:
Vital Signs
Temp Pulse Resp BP Pulse Ox
97 F 82 14 129/61 97
03/11/24 07:00 03/11/24 07:00 03/11/24 07:00 03/11/24 07:00 03/11/24 07:00
I&O
03/10/24 03/11/24 03/12/24
06:59 06:59 06:59
Intake Total 1320 / 1320 1380 / 1380
Balance 1320 / 1320 1380 / 1380
[2024-03-11] MEDS: OSCAL CAL 500 500 MG PO ×2 (07:47→19:30)
[2024-03-11] MEDS: VITAMIN B-12 1000 MCG PO (07:47)
[2024-03-11] MEDS: TYLENOL 1000 MG PO ×2 (07:47→17:00)
[2024-03-11] MEDS: PROTONIX 40 MG PO (07:47)
[2024-03-11] MEDS: NORVASC 2.5 MG PO (07:47)
[2024-03-11] MEDS: VITAMIN D3 (cholecalciferol) 50 MCG PO (07:47)
[2024-03-11] MEDS: NAPROSYN 250 MG PO ×2 (07:47→19:30)
[2024-03-11] MEDS: LIDOCAINE 4% PATCH 1 PATCH TOPICAL (07:48)
[2024-03-11] MEDS: ULTRAM 50 MG PO ×2 (07:48→14:56)
[2024-03-11] MEDS: LEXAPRO 10 MG PO (07:48)
[2024-03-11 09:00] VITALS: BP 146/63; BP_SYST 82
[2024-03-11 09:10] LABS: Hematocrit 30.9 % (37.0-47.0); Hemoglobin 10.2 g/dL (12.0-16.0); Mean Corpuscular Hgb 29.6 pg (27.0-31.0); Mean Corpuscular Volume 89.6 fL (81.0-99.0); Mean Platelet Volume 9.5 fL (7.4-10.4); Platelet Count 327 10^3/uL (130-400); Red Blood Cell Count 3.45 10^6/uL (4.20-5.40); Red Cell Dist. Width 13.5 % (11.5-14.5)
[2024-03-11 09:16] LABS: Blood Urea Nitrogen 20 mg/dl (7-17); Carbon Dioxide 28 mmol/L (22-30); Chloride 103 mmol/L (98-107); Estimated Creatinine Clearance 38 ml/min; Glucose 86 mg/dl (70-99); Potassium 4.6 mmol/L (3.5-5.1); Sodium 139 mmol/L (135-145); eGFR > 60.00
[2024-03-11 10:15] VITALS: BP 113/55
--- NOTE | 2024-03-11 10:34 | CM ---
Reviewed the notes. Patient had bone biopsy today. NM Bone Scan reveals metastatic disease. CM continues to be available to patient/family and is monitoring medical plan for needs at discharge.
Plan: Discharge to home with [facility] and outpatient radiation.
--- NOTE | 2024-03-11 10:49 | W.PN.ONC ---
Today's Communication / Plan
-
Pain management
Discussed introducing of MS Contin 15 mg
Tramadol as needed
Monitor naproxen closely
Proton pump inhibitor
Reevaluate stool for persistence of C. difficile
Impression
Impression
Radiologic findings consistent with metastatic malignancy
History of high-grade bladder carcinoma status post checkpoint inhibitor for failure of intravesicular therapy
Anemia
Pain
Subjective/Objective
Subjective/Objective
Pain reasonably well-controlled when not moving avidly.
Vital Signs:
Vital Signs
Temp Pulse Resp BP Pulse Ox
97.9 F 82 16 113/55 100
03/11/24 09:00 03/11/24 10:15 03/11/24 10:15 03/11/24 10:15 03/11/24 09:00
Alert oriented
Regular
Clear to auscultation without rales
Soft increased bowel sounds
Symmetrical extremities
Lab Results:
Laboratory Data
WBC 8.0 10^3/uL (4.8-10.8) 03/11/24 08:16
Hgb 10.2 g/dL (12.0-16.0) L 03/11/24 08:16
Plt Count 327 10^3/uL (130-400) D 03/11/24 08:16
eGFR > 60.00 03/11/24 08:16
[2024-03-11] MEDS: MS CONTIN (EXTENDED RELEASE) 15 MG PO (13:04)
[2024-03-11 15:00] VITALS: BP 115/55
[2024-03-11 15:14] VITALS: BP 115/55
--- NOTE | 2024-03-11 15:27 | PTCARENOTE ---
MD made aware of patient complaint of loose diarrhea overnight into this AM, cdiff and stool cx ordered per MD.
[2024-03-11] MEDS: LOVENOX 40 MG SC (17:00)
[2024-03-11 22:43] VITALS: BP 120/53
[2024-03-11] MEDS: TYLENOL PO (23:06)
[2024-03-12] MEDS: SYNTHROID 125 MCG PO (05:30)
[2024-03-12] MEDS: ULTRAM 50 MG PO (05:30)
--- NOTE | 2024-03-12 07:31 | W.PN.HOSP.TC ---
Today's Communication/Plan
-
oral vanc as per ID for Cdiff
cont pain control
PT/OT
Assessment / Plan
Assessment / Plan
Physical Exam
General: Well Developed, Well Nourished and No Apparent Distress
HEENT: NormoCephalic, Moist mucous membranes and Atraumatic
Respiratory: Clear
Cardiac: S1/S2 and Regular Rhythm; No Murmur or Rub
GI: Soft, Non Tender, Non Distended and Normal Bowel Sounds; No Organomegaly
Musculoskeletal: No Clubbing, No Cyanosis and No Edema
Skin: No Rash
Neuro: AO x 3 and Nonfocal/grossly intact
Psych: Calm
83F Bladder Ca Keytruda s/p TURBT HTN Lumbar radiculopathy Ian's Esophagus p/w acute on chronic back pain and imaging concerning for metastasis
#lower back pain likely from metastatic disease/pathological fracture
-CT LE with the impression of small metastatic lesion involving the inferior aspect of the L5 vertebral body, with loss of definition of a small portion of the inferior endplate.Small lytic lesion within the medial left iliac bone superiorly, which
is likely bony metastatic disease.No evidence for fracture or dislocation. No other focal metastatic lesion involving the left hip or proximal femur. It should be noted that MRI or bone scan could be more sensitive for detection of bony metastatic
disease.Changes of degenerative disc disease in the lumbar spine including suggestion of significant central canal stenosis at L4-5.
-lumbar CT with Lytic lesion within the L2 vertebral body with associated subtle pathologic fracture of the superior and inferior endplates of the vertebral body.Lytic lesion within the medial and posterior and superior right iliac bone.Subtle loss
of endplate definition involving the inferior endplate of L5 as described, which is likely from a small adjacent bony lesion.These are very likely bony metastatic lesions.Stable compression deformity of L1 with no evidence for associated neoplastic
lesion.
-Tylenol ATC, lidocaine patch, Dilaudid prn for pain, tramadol prn for pain, scheduled pain meds Tylenol, Tramadol, and Naproxen
-started on MS contin as per oncology
-oncology consult eval appreciated CT chest appreciated no acute abn's, no pulm metastasis, bone scan results appreciated, scheduled MS contin started pain control
-IR eval appreciated CT guided biopsy of osteolytic lesion within the posterior right iliac bone completed 03/11 bx results pending
-PT/OT appreciated home health
CDiff positive
Intermittent episodes diarrhea
-cont low residue diet
-ID eval appreciated restarted Dificid switched to oral vanc taper
#HTN
cont home amlodipine 2.5 mg daily
#Hypothyroidism
cont home levothyroxine 125 mcg daily
#Shelby's Esophagus-- cont 40 mg pantoprazole daily--Should follow-up with gastroenterology and PCP after discharge
#Bladder Cancer--Diagnosed in 2021, s/p TURBT--Remains on Keytruda immunotherapy--Follows with oncology Dr Jonathan Lerma [facility]
#Anxiety/Depression--Continued on home Lexapro, appears stable
DVT PPx: Lovenox subQ
CODE STATUS: DNR
Discussed with patient and pt's daughter Marylou
I spent a total of 40 minutes with the patient or on the floor. More than 50% of this time involved counseling and coordination of care.
Anticipated Discharge: 24 - 48 hours
Subjective/Interval History
-
Date of Service: March 12, 2024
Diarrhea persists found to have cdiff. Pain control otherwise improved
Objective Data
-
Labs:
Laboratory Results
03/12/24
06:20
WBC Pending
Hgb Pending
Hct Pending
Plt Count Pending
Sodium Pending
Potassium Pending
Chloride Pending
Carbon Dioxide Pending
BUN Pending
Creatinine Pending
Glucose Pending
Calcium Pending
Vital Signs:
Vital Signs
Temp Pulse Resp BP Pulse Ox
98.5 F 87 14 120/53 94
03/11/24 22:43 03/11/24 22:43 03/11/24 22:43 03/11/24 22:43 03/11/24 22:43
I&O
03/11/24 03/12/24 03/13/24
06:59 06:59 06:59
Intake Total 1380 / 1380 1680 / 1680
Output Total 50 / 50
Balance 1380 / 1380 1630 / 1630
[2024-03-12 07:34] LABS: Hematocrit 32.7 % (37.0-47.0); Hemoglobin 10.6 g/dL (12.0-16.0); Mean Corp Hgb Conc. 32.4 g/dL (33.0-37.0); Mean Corpuscular Hgb 29.9 pg (27.0-31.0); Mean Corpuscular Volume 92.4 fL (81.0-99.0); Mean Platelet Volume 9.6 fL (7.4-10.4); Platelet Count 324 10^3/uL (130-400); Red Blood Cell Count 3.54 10^6/uL (4.20-5.40); Red Cell Dist. Width 13.7 % (11.5-14.5); White Blood Cell Count 6.8 10^3/uL (4.8-10.8)
[2024-03-12 07:45] VITALS: BP 151/69
[2024-03-12] MEDS: PROTONIX 40 MG PO (07:47)
[2024-03-12] MEDS: TYLENOL 1000 MG PO ×3 (07:47→21:13)
[2024-03-12] MEDS: MS CONTIN (EXTENDED RELEASE) 15 MG PO ×2 (07:48→21:13)
[2024-03-12] MEDS: OSCAL CAL 500 500 MG PO ×2 (07:48→21:13)
[2024-03-12] MEDS: VITAMIN D3 (cholecalciferol) 50 MCG PO (07:48)
[2024-03-12] MEDS: NAPROSYN 250 MG PO ×2 (07:48→21:13)
[2024-03-12] MEDS: VITAMIN B-12 1000 MCG PO (07:48)
[2024-03-12] MEDS: NORVASC 2.5 MG PO (07:48)
[2024-03-12] MEDS: LIDOCAINE 4% PATCH 1 PATCH TOPICAL (07:48)
[2024-03-12] MEDS: LEXAPRO 10 MG PO (07:48)
[2024-03-12 08:11] LABS: Blood Urea Nitrogen 21 mg/dl (7-17); Calcium 8.6 mg/dl (8.4-10.2); Carbon Dioxide 26 mmol/L (22-30); Chloride 104 mmol/L (98-107); Estimated Creatinine Clearance 38 ml/min; Glucose 99 mg/dl (70-99); Potassium 4.2 mmol/L (3.5-5.1); Sodium 141 mmol/L (135-145); eGFR > 60.00
--- NOTE | 2024-03-12 08:45 | PTCARENOTE ---
made aware of positive Cdiff toxin result.
--- NOTE | 2024-03-12 09:50 | CON.ID ---
Addendum entered and electronically signed by Christina Hernandez MD 03/12/24 17:25:
I personally performed a history and physical exam of the patient and discussed management with the resident. I reviewed the resident's note and agree with the documented findings and plan of care HPI/CC except for the Vancomycin po taper regimen.
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
- Previously treated with 10 days of fidaxomicin (02/07/24 to 02/16/24)
- Will use different drug regimen this time:
Vancomycin 125mg po qid x 10 days through 03/21,
then 125mg po tid x 7 days through 03/28
then 125 mg po bid x 7 days through 04/04
then 125mg po qd x 7 days through 04/11
then 125mg po qod x 7 days through 04/18
then 125mg po q72h x 7 days through 04/25
then stop.
- Monitor stool frequency.
# Bladder cancer with new finding of bone mets and pathological fracture
Original Note:
Consultation
-
Date/Time Consultation Requested: 03/12/24, 8:57 AM.
Date/Time Consultation Performed: 03/12/24, 9:56 AM.
Requesting Provider: Cresencio Shipman MD
Performing Provider: Indira Webb MD, for Christina Harrison MD, PHD
Reason for Consultation: C.diff diarrhoea
Chief Complaint / Past History
Chief Complaint
Back pain X 10 days
History of Present Illness
83-year-old female with current history of bladder cancer s/p TURBT, being treated with Keytruda by [facility] -which was stopped as of January 2602/2024, history of recent hospitalization(February 04 to February 11) for C. difficile
colitis, history of hypertension, lumbar radiculopathy, and Shelby's esophagus presents to the hospital for evaluation of back pain radiating into her left hip which was affecting her activities of daily living. Upon hospital admission on
03/07/2024, she was diagnosed with metastatic bony disease to the lower lumbar vertebra and iliac bone, that was causing a pathological fracture. After her diagnosis she was being optimally managed for pain and oncology was consulted. Oncology
performed biopsy of the lesion and currently waiting on her biopsy results.
Over the last 2 days patient started having crampy abdominal pain and loose watery stools without blood or mucus. Overnight she had about 3 episodes of loose stools associated with urge incontinence and cramping abdominal pain that is associated
with loss of appetite. She reports having some urinary incontinence and dysuria, but denies having any fever, chills, abdominal pain, nausea, vomiting, cough, sputum production, chest pain, palpitations. She was tested for C. difficile yesterday
after her first episodes of loose stools on 03/10/2024, and it turned out to be positive for both antigen and toxins.
Pertinent labs-hemoglobin at 10.6, white blood cell count less than 10, serum creatinine-0.9, electrolytes-within normal limits.
Past History
Past Medical History: Other (bladder cancer lumbar radiculopathy htn UTI hypothyroidism depression GERD yoav esophagus)
Past Surgical History: Other (b/l Knee replacement right hip replacement cholecystectomy cataract removal)
Allergy History:
hydrocodone [From Vicodin] Allergy (Verified 02/05/24 19:18)
made me loopy
Sulfa (Sulfonamide Antibiotics) Allergy (Verified 02/05/24 19:18)
Hives/swelling/itching
Medications Reviewed: Yes
Social History
Tobacco: Non-Smoker
Alcohol: Occasional
Drug: None
Personal:
Living: Alone
Employment: Retired
Family History
Family History: Not Pertinent
Review of Systems
Review of Systems
General: Change in Appetite; Negative Fever or Chills
HEENT: Negative Headache
Cardiovascular: Negative Chest Pain, Dyspnea or Palpitations
Respiratory: Negative Dyspnea, Cough or Sputum Production
Gasteroenterology: Other (Diarrhea.); Negative Nausea or Vomiting
Genital / Urological: Dysuria and Other (Incontinence.); Negative Hematuria or Flank Pain
Endocrine: Fatigue; Negative Weight Change
Neurological: Negative Headache or Dizziness
Vital Signs
Temp Pulse Resp BP Pulse Ox
98.2 F 103 18 151/69 97
03/12/24 07:45 03/12/24 07:48 03/12/24 07:45 03/12/24 07:48 03/12/24 07:45
Physical Exam
Physical Exam
Constitutional: Comfortable
Cardiovascular: Regular Rate and S1/S2; Negative Murmur, Rub or Gallop
Gastrointestinal: Soft, Non Tender and Non Distended; Negative Normal Bowel Sounds (Increased.)
Genito-Urinary: Negative Suprapubic Tenderness or CVA Tenderness
Extremities: Edema (1+ pitting.)
Neurological: Awake and Alert
Psychological: Calm
Lab / Diagnostic Study Results
03/12/24 06:20
03/12/24 06:20
Abs Immat Gran (auto) 0.1 10^3/uL (0-0.05) H 03/07/24 11:58
Absolute Neuts (auto) 5.5 10^3/uL (1.4-6.5) 03/07/24 11:58
Absolute Lymphs (auto) 3.0 10^3/uL (1.2-3.4) 03/07/24 11:58
Absolute Monos (auto) 1.0 10^3/uL (0.1-0.6) H 03/07/24 11:58
Absolute Basos (auto) 0.0 10^3/uL (0-0.2) 03/07/24 11:58
Immature Gran % 1.2 % (0-0.5) H 03/07/24 11:58
Neutrophils % 56.9 % (42.2-75.2) 03/07/24 11:58
Lymphocytes % 30.9 % (20.5-51.1) 03/07/24 11:58
Monocytes % 10.2 % (1.7-9.3) H 03/07/24 11:58
Eosinophils % 0.4 % (0-6) 03/07/24 11:58
Basophils % 0.4 % (0-2) 03/07/24 11:58
Microbiology Results
Micro:
03/12/24 01:17 C. difficile [facility] Antigen & Toxins - Final
Feces/Stool Toxigenic C.difficile Positive
03/11/24 00:00 Salmonella/Shigella Culture - Pending
Feces/Stool Campylobacter Culture - Pending
Shiga Toxin Test - Pending
Guided needle placement CT-03/11/[address]-03/11/2024
Bone scan nuclear medicine-03/09/2024
Focal increased radiopharmaceutical uptake involving the lower sternum.
Focal increased activity involving the right lateral sixth rib and left posterolateral ninth rib.
Scattered focal areas of increased uptake involving the mid cervical spine as well as the L2 and L3 vertebral bodies.
Increased uptake involving the posteromedial right iliac bone.
Above findings are most in keeping with metastatic disease.
Chest CT-03/08/2024.
No acute disease of the chest. No evidence of pulmonary metastatic disease
Findings consistent with mild lytic osseous metastatic disease.
Moderate L1 compression fracture. Stable
Assessment / Plan
Assessment-
Subjective-diarrhea associated with cramping abdominal pain only during the episodes.
Objective-vital signs stable, afebrile, labs-WBC less than 15,000, serum creatinine less than 1.5, electrolytes within normal limits as of today.
Last Keytruda dose in January.
Stool cultures-positive for C. difficile antigens and toxins, Salmonella Shigella cultures pending, Campylobacter culture pending, Shiga toxin test pending, negative for norovirus.
Diagnosis-C. difficile gastroenteritis-first recurrence
Plan-
Last C. difficile for the patient was treated with Dificid. Given patient's comorbid conditions decided to use vancomycin with a prolonged taper.
Currently patient is on Dificid. Stop Dificid and start vancomycin oral.
Recommend low residue diet until patient symptoms clinically improved.
Recommend vancomycin 125 mg 4 times a day for 10 days, then vancomycin 125 mg 3 times a day for 6 days, then vancomycin 125 mg twice a day for 6 days, vancomycin 125 mg once a day for 6 days, then vancomycin 125 mg every 48 hours for 6 days, then
vancomycin 125 mg every 72 hours for 6 days, and then stop.
--- NOTE | 2024-03-12 10:25 | W.PN.ONC2 ---
Today's Communication / Plan
-
follow for path
pain management
cdiff per primary service
Impression
Impression
Radiologic findings consistent with metastatic malignancy
History of high-grade bladder carcinoma status post checkpoint inhibitor for failure of intravesicular therapy
Anemia
Cancer Pain
C. diff
Plan
Plan
s/p osteolytic lesion within the posterior right iliac bone, follow for pathology
OP XRT will be arranged upon discharge for palliative pain control
Continue MS Contin 15 mg BID, started 03/11, Tramadol as needed
Monitor naproxen closely
Proton pump inhibitor
C. difficile management per primary service
Subjective/Objective
Chief Complaint
pain improved with MS contin, also using lidoderm patch, tramadol and naproxen
diarrhea -C. diff positive
Subjective
afebrile, no hypoxia or hypotension
Vital Signs:
Vital Signs
Temp Pulse Resp BP Pulse Ox
98.2 F 103 18 151/69 97
03/12/24 07:45 03/12/24 07:48 03/12/24 07:45 03/12/24 07:48 03/12/24 07:45
Lab Results:
Laboratory Data
WBC 6.8 10^3/uL (4.8-10.8) 03/12/24 06:20
Hgb 10.6 g/dL (12.0-16.0) L 03/12/24 06:20
Plt Count 324 10^3/uL (130-400) 03/12/24 06:20
eGFR > 60.00 03/12/24 06:20
Physical Exam
HEENT: Moist Mucous Membranes; No Jaundice
Cardiology: S1 and S2
Pulmonary: Clear
GI: Soft
Extremities: Pulses Present; No Edema
Neuro: Non Focal
Review of Systems
Review of Systems
ROS notable for subjective, otherwise negative
Orders
Orders
Orders From Last 24 Hours
03/11/24 10:01
[facility] Pathology Routine
03/11/24 11:59
Morphine Sulfate Extended Rel. [Ms Contin (Extended Release)] 15 mg PO NOW STA
03/11/24 12:01
Tramadol HCl [Ultram] 50 mg PO Q8HPRN PRN
03/12/24 08:00
Morphine Sulfate Extended Rel. [Ms Contin (Extended Release)] 15 mg PO Q12
[2024-03-12] MEDS: DIFICID 200 MG PO (10:35)
--- NOTE | 2024-03-12 10:49 | VNURNOTE ---
Home Health Liaison met with patient and granddaughter at bedside to discuss [facility] nurse/therapy, visits, schedule and homebound status. Patient is agreeable and understands that visits at home will be 2-3 x per week to assess and teach medical
management. Patient aware to apply barrier ointment to buttocks- she thinks she can perform independently, she will talk to family to determine who can assist her w/ applications when she goes home. [facility] brochure provided with contact information.
Patient is aware that [facility] will contact them for start of care in 1-2 days after discharge from . [facility] referral completed in [facility].
[2024-03-12] MEDS: DILAUDID 1 MG IV ×2 (12:52→17:47)
[2024-03-12 15:00] VITALS: BP 122/57
--- NOTE | 2024-03-12 15:39 | CM ---
met with patient at bedside.cancer pain has improved with multiple pain meds,c diff+ on po vanco.[facility]
[2024-03-12 17:10] VITALS: BP 122/51; PULSE 86; O2SAT 92
[2024-03-12] MEDS: LOVENOX 40 MG SC (17:47)
[2024-03-12] MEDS: FIRVANQ 125 MG PO (17:47)
[2024-03-12 22:43] VITALS: BP 114/54
[2024-03-13] MEDS: FIRVANQ 125 MG PO ×5 (00:26→23:02)
[2024-03-13] MEDS: SYNTHROID 125 MCG PO (06:16)
[2024-03-13 07:25] VITALS: BP 125/53
--- NOTE | 2024-03-13 07:37 | W.PN.HOSP.TC ---
Today's Communication/Plan
-
Oral Vanc taper as per ID
cont PT/OT
pain control
Assessment / Plan
Assessment / Plan
Physical Exam
General: Well Developed, Well Nourished and No Apparent Distress
HEENT: NormoCephalic, Moist mucous membranes and Atraumatic
Respiratory: Clear
Cardiac: S1/S2 and Regular Rhythm; No Murmur or Rub
GI: Soft, Non Tender, Non Distended and Normal Bowel Sounds; No Organomegaly
Musculoskeletal: No Clubbing, No Cyanosis and No Edema
Skin: No Rash
Neuro: Awake alert conversant coherent some confusion/memory issues noted recently received prn Tramadol
Psych: Calm
83F Bladder Ca Keytruda s/p TURBT HTN Lumbar radiculopathy Ian's Esophagus p/w acute on chronic back pain and imaging concerning for metastasis
#lower back pain likely from metastatic disease/pathological fracture
-CT LE with the impression of small metastatic lesion involving the inferior aspect of the L5 vertebral body, with loss of definition of a small portion of the inferior endplate.Small lytic lesion within the medial left iliac bone superiorly, which
is likely bony metastatic disease.No evidence for fracture or dislocation. No other focal metastatic lesion involving the left hip or proximal femur. It should be noted that MRI or bone scan could be more sensitive for detection of bony metastatic
disease.Changes of degenerative disc disease in the lumbar spine including suggestion of significant central canal stenosis at L4-5.
-lumbar CT with Lytic lesion within the L2 vertebral body with associated subtle pathologic fracture of the superior and inferior endplates of the vertebral body.Lytic lesion within the medial and posterior and superior right iliac bone.Subtle loss
of endplate definition involving the inferior endplate of L5 as described, which is likely from a small adjacent bony lesion.These are very likely bony metastatic lesions.Stable compression deformity of L1 with no evidence for associated neoplastic
lesion.
-Tylenol ATC, lidocaine patch, Dilaudid tramadol prn for pain, scheduled pain meds Tylenol, Naproxen, and MS contin added recently as per oncology
-oncology consult eval appreciated CT chest appreciated no acute abn's, no pulm metastasis, bone scan results appreciated, scheduled MS cassie started pain control
-IR eval appreciated CT guided biopsy of osteolytic lesion within the posterior right iliac bone completed 03/11 bx results pending
-PT/OT appreciated home health
CDiff positive
Intermittent episodes diarrhea
-cont low residue diet
-ID eval appreciated started on oral vanc taper, diarrhea since improved
#HTN
cont home amlodipine 2.5 mg daily
#Hypothyroidism
cont home levothyroxine 125 mcg daily
#Shelby's Esophagus-- cont 40 mg pantoprazole daily--Should follow-up with gastroenterology and PCP after discharge
#Bladder Cancer--Diagnosed in 2021, s/p TURBT--Remains on Keytruda immunotherapy--Follows with oncology Dr Jonathan Lerma [facility]
#Anxiety/Depression--Continued on home Lexapro, appears stable
DVT PPx: Lovenox subQ
CODE STATUS: DNR
Discussed with patient and pt's granddaughter Tawana and [id number] Mason
I spent a total of 40 minutes with the patient or on the floor. More than 50% of this time involved counseling and coordination of care.
Anticipated Discharge: 24 - 48 hours
Subjective/Interval History
-
Date of Service: March 13, 2024
Diarrhea improved. Pain control improving. Some confusion noted likely side effect prn pain medication.
Objective Data
-
Labs:
Laboratory Results
03/13/24
06:00
WBC Pending
Hgb Pending
Hct Pending
Plt Count Pending
Sodium Pending
Potassium Pending
Chloride Pending
Carbon Dioxide Pending
BUN Pending
Creatinine Pending
Glucose Pending
Calcium Pending
Vital Signs:
Vital Signs
Temp Pulse Resp BP Pulse Ox
98.4 F 89 18 114/54 96
03/12/24 22:43 03/12/24 22:43 03/12/24 22:43 03/12/24 22:43 03/13/24 05:18
I&O
03/12/24 03/13/24 03/14/24
06:59 06:59 06:59
Intake Total 1680 / 1680 750 / 750
Output Total 50 / 50
Balance 1630 / 1630 740 / 740
[2024-03-13 07:49] VITALS: BP 125/53
[2024-03-13] MEDS: NORVASC 2.5 MG PO (08:26)
[2024-03-13] MEDS: NAPROSYN 250 MG PO ×2 (08:26→20:10)
[2024-03-13] MEDS: TYLENOL 1000 MG PO ×3 (08:26→23:00)
[2024-03-13] MEDS: OSCAL CAL 500 500 MG PO ×2 (08:26→20:10)
[2024-03-13] MEDS: VITAMIN B-12 1000 MCG PO (08:27)
[2024-03-13] MEDS: LIDOCAINE 4% PATCH 1 PATCH TOPICAL (08:27)
[2024-03-13] MEDS: MS CONTIN (EXTENDED RELEASE) 15 MG PO ×2 (08:27→20:10)
[2024-03-13] MEDS: LEXAPRO 10 MG PO (08:27)
[2024-03-13] MEDS: VITAMIN D3 (cholecalciferol) 50 MCG PO (08:27)
[2024-03-13] MEDS: PROTONIX 40 MG PO (08:27)
[2024-03-13 11:57] LABS: Mean Corp Hgb Conc. 33.3 g/dL (33.0-37.0); Mean Corpuscular Hgb 29.3 pg (27.0-31.0); Mean Platelet Volume 9.3 fL (7.4-10.4); Platelet Count 292 10^3/uL (130-400); Red Blood Cell Count 3.41 10^6/uL (4.20-5.40); Red Cell Dist. Width 13.8 % (11.5-14.5); White Blood Cell Count 6.5 10^3/uL (4.8-10.8)
[2024-03-13 12:14] LABS: Blood Urea Nitrogen 21 mg/dl (7-17); Carbon Dioxide 26 mmol/L (22-30); Chloride 105 mmol/L (98-107); Estimated Creatinine Clearance 38 ml/min; Glucose 115 mg/dl (70-99); Magnesium 1.6 mg/dl (1.6-2.3); Phosphorus 3.9 mg/dl (2.5-4.5); Potassium 4.4 mmol/L (3.5-5.1); Sodium 140 mmol/L (135-145); eGFR > 60.00
[2024-03-13] MEDS: ULTRAM 50 MG PO (15:02)
[2024-03-13 15:20] VITALS: BP 101/45
[2024-03-13] MEDS: LOVENOX 40 MG SC (17:35)
[2024-03-13 22:39] VITALS: BP 112/53
[2024-03-14] MEDS: SYNTHROID 125 MCG PO (05:26)
[2024-03-14] MEDS: FIRVANQ 125 MG PO ×4 (05:26→23:08)
[2024-03-14 06:08] LABS: Hematocrit 30.2 % (37.0-47.0); Hemoglobin 9.9 g/dL (12.0-16.0); Mean Corp Hgb Conc. 32.8 g/dL (33.0-37.0); Mean Corpuscular Hgb 30.2 pg (27.0-31.0); Mean Corpuscular Volume 92.1 fL (81.0-99.0); Mean Platelet Volume 9.2 fL (7.4-10.4); Platelet Count 291 10^3/uL (130-400); Red Blood Cell Count 3.28 10^6/uL (4.20-5.40); Red Cell Dist. Width 13.7 % (11.5-14.5); White Blood Cell Count 7.4 10^3/uL (4.8-10.8)
[2024-03-14 06:26] LABS: Blood Urea Nitrogen 20 mg/dl (7-17); Calcium 8.9 mg/dl (8.4-10.2); Carbon Dioxide 26 mmol/L (22-30); Chloride 105 mmol/L (98-107); Estimated Creatinine Clearance 43 ml/min; Glucose 102 mg/dl (70-99); Magnesium 1.6 mg/dl (1.6-2.3); Phosphorus 4.5 mg/dl (2.5-4.5); Potassium 4.6 mmol/L (3.5-5.1); Sodium 138 mmol/L (135-145); eGFR > 60.00
[2024-03-14 07:00] VITALS: BP 126/55
--- NOTE | 2024-03-14 08:46 | W.PN.HOSP.TC ---
Today's Communication/Plan
-
cont pain control
dilaudid reserved for severe breakthrough pain, tramadol adjusted 25 mg for moderate pain, 50 mg severe
PT/OT
oral vanc taper as per ID
Assessment / Plan
Assessment / Plan
Physical Exam
General: Well Developed, Well Nourished and No Apparent Distress
HEENT: NormoCephalic, Moist mucous membranes and Atraumatic
Respiratory: Clear
Cardiac: S1/S2 and Regular Rhythm; No Murmur or Rub
GI: Soft, Non Tender, Non Distended and Normal Bowel Sounds; No Organomegaly
Musculoskeletal: No Clubbing, No Cyanosis and No Edema
Skin: No Rash
Neuro: Awake alert conversant coherent some confusion noted
Psych: Calm
83F Bladder Ca Keytruda s/p TURBT HTN Lumbar radiculopathy Ian's Esophagus p/w acute on chronic back pain and imaging concerning for metastasis
#lower back pain likely from metastatic disease/pathological fracture
-CT LE with the impression of small metastatic lesion involving the inferior aspect of the L5 vertebral body, with loss of definition of a small portion of the inferior endplate.Small lytic lesion within the medial left iliac bone superiorly, which
is likely bony metastatic disease.No evidence for fracture or dislocation. No other focal metastatic lesion involving the left hip or proximal femur. It should be noted that MRI or bone scan could be more sensitive for detection of bony metastatic
disease.Changes of degenerative disc disease in the lumbar spine including suggestion of significant central canal stenosis at L4-5.
-lumbar CT with Lytic lesion within the L2 vertebral body with associated subtle pathologic fracture of the superior and inferior endplates of the vertebral body.Lytic lesion within the medial and posterior and superior right iliac bone.Subtle loss
of endplate definition involving the inferior endplate of L5 as described, which is likely from a small adjacent bony lesion.These are very likely bony metastatic lesions.Stable compression deformity of L1 with no evidence for associated neoplastic
lesion.
-Lidocaine patch, Dilaudid reserved for severe breakthrough pain, tramadol 25 mg prn for moderate pain, 50 mg for severe, scheduled pain meds Tylenol, Naproxen, and MS contin added recently as per oncology
-oncology consult eval appreciated CT chest appreciated no acute abn's, no pulm metastasis, bone scan results appreciated, scheduled MS contin started pain control
-IR eval appreciated CT guided biopsy of osteolytic lesion within the posterior right iliac bone completed 03/11 bx results pending
-PT/OT appreciated home health
CDiff positive
Intermittent episodes diarrhea
-cont low residue diet
-ID eval appreciated started on oral vanc taper, diarrhea since improved though continues to persist
#HTN
cont home amlodipine 2.5 mg daily
#Hypothyroidism
cont home levothyroxine 125 mcg daily
#Shelby's Esophagus-- cont 40 mg pantoprazole daily--Should follow-up with gastroenterology and PCP after discharge
#Bladder Cancer--Diagnosed in 2021, s/p TURBT--Remains on Keytruda immunotherapy--Follows with oncology Dr Jonathan Lerma Cancer
#Anxiety/Depression--Continued on home Lexapro, appears stable
DVT PPx: Lovenox subQ
CODE STATUS: DNR
Discussed with patient and pt's daughter Marylou
I spent a total of 40 minutes with the patient or on the floor. More than 50% of this time involved counseling and coordination of care.
Anticipated Discharge: 24 - 48 hours
Subjective/Interval History
-
Date of Service: March 14, 2024
No acute distress resting comfortably in bed. Diarrhea persists though some improvement noted. Pain controlled with current regimen but there is concern for sedation confusion. some confusion noted but otherwise awake alert conversant coherent.
Objective Data
-
Labs:
Laboratory Results
03/14/24
05:32
WBC 7.4
Hgb 9.9 L
Hct 30.2 L
Plt Count 291
Sodium 138
Potassium 4.6
Chloride 105
Carbon Dioxide 26
BUN 20 H
Creatinine 0.8
Glucose 102 H
Calcium 8.9
Vital Signs:
Vital Signs
Temp Pulse Resp BP Pulse Ox
98.1 F 80 18 126/55 95
03/14/24 07:00 03/14/24 07:00 03/14/24 07:00 03/14/24 07:00 03/14/24 07:00
I&O
03/13/24 03/14/24 03/15/24
06:59 06:59 06:59
Intake Total 750 / 750 1560 / 1560
Output Total
Balance 740 / 740 1558 / 1558
[2024-03-14] MEDS: VITAMIN B-12 1000 MCG PO (09:14)
[2024-03-14] MEDS: LIDOCAINE 4% PATCH 1 PATCH TOPICAL (09:14)
[2024-03-14] MEDS: TYLENOL 1000 MG PO ×3 (09:15→20:29)
[2024-03-14] MEDS: NORVASC 2.5 MG PO (09:15)
[2024-03-14] MEDS: LEXAPRO 10 MG PO (09:15)
[2024-03-14] MEDS: NAPROSYN 250 MG PO ×2 (09:15→20:28)
[2024-03-14] MEDS: OSCAL CAL 500 500 MG PO ×2 (09:15→20:28)
[2024-03-14] MEDS: MS CONTIN (EXTENDED RELEASE) 15 MG PO ×2 (09:15→20:28)
[2024-03-14] MEDS: PROTONIX 40 MG PO (09:15)
[2024-03-14] MEDS: VITAMIN D3 (cholecalciferol) 50 MCG PO (09:16)
--- NOTE | 2024-03-14 11:13 | W.PN.ID1 ---
Date of Service
Date of Service: March 14, 2024
Today's Communication
Continue antibiotics.
Assessment / Plan
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
- Previously treated with 10 days of fidaxomicin (02/07/24 to 02/16/24)
- Continue with vanco tx (as follows) :
Vancomycin 125mg po qid x 10 days through 03/21,
then 125mg po tid x 7 days through 03/28
then 125 mg po bid x 7 days through 04/04
then 125mg po qd x 7 days through 04/11
then 125mg po qod x 7 days through 04/18
then 125mg po q72h x 7 days through 04/25
then stop.
- Monitor stool frequency / consistency.
# Bladder cancer with new finding of bone mets and pathological fracture
Chief Complaint
-: C-diff
Subjective / Review of Systems
Patient seen and examined. Reports ongoing back discomfort. Still with loose stool, although believes it may be firming up and less watery
Review of Systems: No Fever
Vital Signs / Physical Exam
Vital Signs
Vital Signs
Temp Pulse Resp BP Pulse Ox
98.1 F 80 18 126/55 95
03/14/24 07:00 03/14/24 07:00 03/14/24 07:00 03/14/24 07:00 03/14/24 07:00
Physical Exam
Constitutional: No Acute Distress and Comfortable
Eyes: Sclera Anicteric
Pulmonary: Non Labored
Gastrointestinal: Non Tender
Skin: Negative Rash or Jaundice
Neurological: Awake and Alert
Psychological: Calm
Objective Data
Lab Data
Lab Results
03/14/24 05:32
03/14/24 05:32
Estimated Creat Clear 43 ml/min 03/14/24 05:32
Total Bilirubin 0.4 mg/dl (0.2-1.3) 03/07/24 11:58
AST 18 U/L (14-36) 03/07/24 11:58
ALT 15 U/L (0-35) 03/07/24 11:58
Alkaline Phosphatase 125 U/L (38-126) 03/07/24 11:58
Most recent labs reviewed.
Micro Results:
03/11/24 00:00 Salmonella/Shigella Culture - Preliminary
Feces/Stool Culture in Progress
Campylobacter Culture - Final
No Campylobacter species isolated.
Shiga Toxin Test - Pending
03/12/24 01:17 C. difficile [facility] Antigen & Toxins - Final
Feces/Stool Toxigenic C.difficile Positive
Guided needle placement CT-03/11/[address]-03/11/2024
Bone scan nuclear medicine-03/09/2024
Focal increased radiopharmaceutical uptake involving the lower sternum.
Focal increased activity involving the right lateral sixth rib and left posterolateral ninth rib.
Scattered focal areas of increased uptake involving the mid cervical spine as well as the L2 and L3 vertebral bodies.
Increased uptake involving the posteromedial right iliac bone.
Above findings are most in keeping with metastatic disease.
Chest CT-03/08/2024.
No acute disease of the chest. No evidence of pulmonary metastatic disease
Findings consistent with mild lytic osseous metastatic disease.
Moderate L1 compression fracture. Stable
[2024-03-14 15:15] VITALS: BP 114/52
[2024-03-14] MEDS: LOVENOX 40 MG SC (17:06)
[2024-03-14 23:22] VITALS: BP 109/46
[2024-03-15] MEDS: FIRVANQ 125 MG PO (05:47)
[2024-03-15] MEDS: SYNTHROID 125 MCG PO (05:47)
[2024-03-15 06:20] LABS: Hematocrit 29.7 % (37.0-47.0); Hemoglobin 9.8 g/dL (12.0-16.0); Mean Corpuscular Hgb 29.3 pg (27.0-31.0); Mean Corpuscular Volume 88.9 fL (81.0-99.0); Mean Platelet Volume 9.3 fL (7.4-10.4); Platelet Count 311 10^3/uL (130-400); Red Blood Cell Count 3.34 10^6/uL (4.20-5.40); Red Cell Dist. Width 13.6 % (11.5-14.5); White Blood Cell Count 6.7 10^3/uL (4.8-10.8)
[2024-03-15 06:52] LABS: Blood Urea Nitrogen 18 mg/dl (7-17); Carbon Dioxide 25 mmol/L (22-30); Chloride 105 mmol/L (98-107); Estimated Creatinine Clearance 43 ml/min; Glucose 103 mg/dl (70-99); Magnesium 1.6 mg/dl (1.6-2.3); Phosphorus 4.3 mg/dl (2.5-4.5); Potassium 3.9 mmol/L (3.5-5.1); Sodium 140 mmol/L (135-145); eGFR > 60.00
[2024-03-15 07:30] VITALS: BP 122/50
[2024-03-15] MEDS: LIDOCAINE 4% PATCH 1 PATCH TOPICAL (08:21)
[2024-03-15] MEDS: OSCAL CAL 500 500 MG PO ×2 (08:21→19:38)
[2024-03-15] MEDS: TYLENOL 1000 MG PO ×3 (08:21→21:37)
[2024-03-15] MEDS: LEXAPRO 10 MG PO (08:21)
[2024-03-15] MEDS: VITAMIN B-12 1000 MCG PO (08:21)
[2024-03-15] MEDS: PROTONIX 40 MG PO (08:21)
[2024-03-15] MEDS: NAPROSYN 250 MG PO ×2 (08:21→19:38)
[2024-03-15] MEDS: NORVASC 2.5 MG PO (08:22)
[2024-03-15] MEDS: MS CONTIN (EXTENDED RELEASE) 15 MG PO (08:22)
[2024-03-15] MEDS: VITAMIN D3 (cholecalciferol) 50 MCG PO (08:22)
--- NOTE | 2024-03-15 10:07 | CM ---
CM following re: discharge planning.
Reviewed pt's chart, met with pt.
PT and OT evaluations noted - home PT/OT recommended. Pt is aware and she stated she had [facility] in the past. A referral to [facility] noted.
IMM reviewed, placed on chart, pt has a copy.
Pt reports she lives alone, has 4 supportive daughters, daughter Marylou has POA, she lives nearby and helps as needed. Pt stated her daughter Marylou will transport her home at discharge.
Pt stated she does not feel well today.
Please fax discharge instructions to [facility] at [phone]
D/C plan: home with [facility] and family support. Daughter to transport at discharge.
CM will follow with discharge plan updates as hospitalization progresses.
--- NOTE | 2024-03-15 10:27 | W.PN.ID1 ---
Date of Service
Date of Service: March 15, 2024
Today's Communication
- No significant response to po Vancomycin (d4)
- DC po Vanco and start fidaxomicin 200mg po bid.
Assessment / Plan
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
- Previously treated with 10 days of fidaxomicin (02/07/24 to 02/16/24)
- No significant response to po Vancomycin (d4)
- DC po Vanco and start fidaxomicin 200mg po bid.
- Monitor stool frequency / consistency.
# Bladder cancer with new finding of bone mets and pathological fracture
# Conditions GANG BOSS
Hypertension
Hypothyroidism
Bladder cancer status post TURBT 2021, + right ureter stent, s/p Keytruda [id number]
Anxiety/depression
Lumbar radiculopathy
Shelby's esophagus
Cholecystectomy
Bilateral knee replacements
Right MANJIT
Chief Complaint
-: C-diff
Subjective / Review of Systems
Still having multiple episodes of diarrhea with cramping.
Vital Signs / Physical Exam
Vital Signs
Vital Signs
Temp Pulse Resp BP Pulse Ox
98.4 F 80 16 122/50 92
03/15/24 07:30 03/15/24 08:22 03/15/24 07:30 03/15/24 08:22 03/15/24 09:43
Physical Exam
Constitutional: No Acute Distress
Pulmonary: Clear
Gastrointestinal: Soft, Non Tender and Non Distended
Neurological: AO x 3
Objective Data
Lab Data
Lab Results
03/15/24 05:57
03/15/24 05:57
Estimated Creat Clear 43 ml/min 03/15/24 05:57
Total Bilirubin 0.4 mg/dl (0.2-1.3) 03/07/24 11:58
AST 18 U/L (14-36) 03/07/24 11:58
ALT 15 U/L (0-35) 03/07/24 11:58
Alkaline Phosphatase 125 U/L (38-126) 03/07/24 11:58
Most recent labs reviewed.
Micro Results:
03/11/24 00:00 Salmonella/Shigella Culture - Preliminary
Feces/Stool Culture in Progress
Campylobacter Culture - Final
No Campylobacter species isolated.
Shiga Toxin Test - Final
No E. coli Shiga Toxin 1 or 2 detected.
03/12/24 01:17 C. difficile [facility] Antigen & Toxins - Final
Feces/Stool Toxigenic C.difficile Positive
Guided needle placement CT-03/11/[address]-03/11/2024
Bone scan nuclear medicine-03/09/2024
Focal increased radiopharmaceutical uptake involving the lower sternum.
Focal increased activity involving the right lateral sixth rib and left posterolateral ninth rib.
Scattered focal areas of increased uptake involving the mid cervical spine as well as the L2 and L3 vertebral bodies.
Increased uptake involving the posteromedial right iliac bone.
Above findings are most in keeping with metastatic disease.
Chest CT-03/08/2024.
No acute disease of the chest. No evidence of pulmonary metastatic disease
Findings consistent with mild lytic osseous metastatic disease.
Moderate L1 compression fracture. Stable
[2024-03-15] MEDS: DIFICID 200 MG PO ×2 (10:56→19:38)
[2024-03-15 11:55] VITALS: BP 121/50; PULSE 77; O2SAT 95
[2024-03-15] MEDS: ULTRAM 25 MG PO (12:04)
--- NOTE | 2024-03-15 12:37 | W.PN.HOSP.TC ---
Today's Communication/Plan
-
switch to fidaxomicin 200mg po bid
stop tramadol 50mg, start oxy for severe pain
pt/ot
Assessment / Plan
Assessment / Plan
Physical Exam
General: Well Developed, Well Nourished and No Apparent Distress
HEENT: NormoCephalic, Moist mucous membranes and Atraumatic
Respiratory: Clear
Cardiac: S1/S2 and Regular Rhythm; No Murmur or Rub
GI: Soft, Non Tender, Non Distended and Normal Bowel Sounds; No Organomegaly
Musculoskeletal: No Clubbing, No Cyanosis and No Edema
Skin: No Rash
Neuro: Awake alert conversant coherent some confusion noted
Psych: Calm
83F Bladder Ca Keytruda s/p TURBT HTN Lumbar radiculopathy Ian's Esophagus p/w acute on chronic back pain and imaging concerning for metastasis
#lower back pain likely from metastatic disease/pathological fracture
-CT LE with the impression of small metastatic lesion involving the inferior aspect of the L5 vertebral body, with loss of definition of a small portion of the inferior endplate.Small lytic lesion within the medial left iliac bone superiorly, which
is likely bony metastatic disease.No evidence for fracture or dislocation. No other focal metastatic lesion involving the left hip or proximal femur. It should be noted that MRI or bone scan could be more sensitive for detection of bony metastatic
disease.Changes of degenerative disc disease in the lumbar spine including suggestion of significant central canal stenosis at L4-5.
-lumbar CT with Lytic lesion within the L2 vertebral body with associated subtle pathologic fracture of the superior and inferior endplates of the vertebral body.Lytic lesion within the medial and posterior and superior right iliac bone.Subtle loss
of endplate definition involving the inferior endplate of L5 as described, which is likely from a small adjacent bony lesion.These are very likely bony metastatic lesions.Stable compression deformity of L1 with no evidence for associated neoplastic
lesion.
-Lidocaine patch, Naproxen, and MS contin, oxy prn
-oncology consult eval appreciated CT chest appreciated no acute abn's, no pulm metastasis, bone scan results appreciated, scheduled MS cassie started pain control
-IR joy appreciated CT guided biopsy of osteolytic lesion within the posterior right iliac bone completed 03/11 bx results pending
-PT/OT appreciated home health
CDiff positive
Intermittent episodes diarrhea
-cont low residue diet
-ID on board
-DC po Vanc, switch to fidaxomicin 200mg po bid
#HTN
cont home amlodipine 2.5 mg daily
#Hypothyroidism
cont home levothyroxine 125 mcg daily
#Shelby's Esophagus-- cont 40 mg pantoprazole daily--Should follow-up with gastroenterology and PCP after discharge
#Bladder Cancer--Diagnosed in 2021, s/p TURBT--Remains on Keytruda immunotherapy--Follows with oncology Dr Jonathan Lerma [facility]
#Anxiety/Depression--Continued on home Lexapro, appears stable
DVT PPx: Lovenox subQ
CODE STATUS: DNR
Discussed with patient and pt's daughter Marylou
Anticipated Discharge: 24 - 48 hours
Subjective/Interval History
-
Date of Service: March 15, 2024
still with significant diarrhea
pain upon movement
Objective Data
-
Labs:
Laboratory Results
03/15/24
05:57
WBC 6.7
Hgb 9.8 L
Hct 29.7 L
Plt Count 311
Sodium 140
Potassium 3.9
Chloride 105
Carbon Dioxide 25
BUN 18 H
Creatinine 0.8
Glucose 103 H
Calcium 9.0
Vital Signs:
Vital Signs
Temp Pulse Resp BP Pulse Ox
98.4 F 80 16 122/50 92
03/15/24 07:30 03/15/24 08:22 03/15/24 07:30 03/15/24 08:22 03/15/24 09:43
I&O
03/14/24 03/15/24 03/16/24
06:59 06:59 06:59
Intake Total 1560 / 1560 1080 / 1080
Output Total
Balance 1558 / 1558 1080 / 1080
Review of Systems
-
History Source: Patient
All other systems: Not reviewed unless documented
Physical Exam
-
General: Well Developed, Well Nourished and No Apparent Distress
HEENT: Normocephalic and Atraumatic
Respiratory: Clear to Auscultation; Negative Wheezes or Rhonchi
Cardiac: Regular Rhythm and S1/S2; Negative Murmur
GI: Soft, Nontender, Nondistended and Normal Bowel Sounds
Musculoskeletal: No Clubbing and No Cyanosis; Negative No Edema (1+ LE edema bilaterally)
Skin: Warm
Neuro: Awake
Data Reviewed
-
CT Scan: Image personally visualized and interpreted and Report Reviewed by me
Labs: Labs Reviewed by me
--- NOTE | 2024-03-15 12:40 | W.PN.ONC ---
Today's Communication / Plan
-
I have increased her MS Contin to 30 mg twice daily. Will leave her as needed dose the same for the time being. Biopsy results pending. Discussed in detail with patient and daughter.
Impression
Impression
Radiologic findings consistent with metastatic malignancy
History of high-grade bladder carcinoma status post checkpoint inhibitor for failure of intravesicular therapy
Anemia
Cancer Pain
C. diff
Plan
Plan
s/p osteolytic lesion within the posterior right iliac bone, follow for pathology
OP XRT will be arranged upon discharge for palliative pain control
Continue MS Contin 15 mg BID, started 03/11, Tramadol as needed
Monitor naproxen closely
Proton pump inhibitor
C. difficile management per primary service
Subjective/Objective
Subjective/Objective
She is not having much pain at rest, but has fairly severe pain when she tries to move. She continues with abdominal pain and diarrhea. C. difficile medications have been changed by infectious disease. Examination is otherwise unchanged.
Vital Signs:
Vital Signs
Temp Pulse Resp BP Pulse Ox
98.4 F 80 16 122/50 92
03/15/24 07:30 03/15/24 08:22 03/15/24 07:30 03/15/24 08:22 03/15/24 09:43
Lab Results:
Laboratory Data
WBC 6.7 10^3/uL (4.8-10.8) 03/15/24 05:57
Hgb 9.8 g/dL (12.0-16.0) L 03/15/24 05:57
Plt Count 311 10^3/uL (130-400) 03/15/24 05:57
eGFR > 60.00 03/15/24 05:57
Orders
Orders
Orders From Last 24 Hours
03/15/24 12:40
Morphine Sulfate Extended Rel. [Ms Contin (Extended Release)] 30 mg PO Q12
[2024-03-15 12:41] VITALS: BP 121/50; BP 143/83; PULSE 82; O2SAT 95
--- NOTE | 2024-03-15 14:20 | PTCARENOTE ---
Patient c/o burning with urination to this RN; patient with frequent stress incontinence of bowel and bladder, two loose bowel movements in toilet this AM. MD made aware, urine cx ordered per MD. Sacrum foam and barrier ointment applied to open MASD
on buttocks by this RN.
[2024-03-15 15:20] VITALS: BP 120/59
[2024-03-15 17:01] LABS: Urine Albumin 2+ (Neg - Trace); Urine Bilirubin Negative (Negative); Urine Character Very Cloudy (Clear); Urine Color Yellow; Urine Glucose Negative (Negative); Urine Ketone Negative (Negative); Urine Leukocyte 2+ (Negative); Urine Nitrite Positive (Negative); Urine Occult Blood 4+ (Negative); Urine Urobilinogen Negative (Neg - 1+)
[2024-03-15] MEDS: LOVENOX 40 MG SC (17:01)
[2024-03-15 17:05] VITALS: BP 120/59
[2024-03-15 17:16] LABS: Urine Bacteria Few (Negative); Urine Squamous Cell 0-2 /LPF (Few); Urine White Cell >100 /HPF (0-5)
[2024-03-15] MEDS: MS CONTIN (EXTENDED RELEASE) 30 MG PO (19:38)
[2024-03-15 22:58] VITALS: BP 111/51
[2024-03-16] MEDS: SYNTHROID 125 MCG PO (05:49)
[2024-03-16 06:30] LABS: Hematocrit 30.6 % (37.0-47.0); Hemoglobin 9.9 g/dL (12.0-16.0); Mean Corp Hgb Conc. 32.4 g/dL (33.0-37.0); Mean Corpuscular Hgb 29.1 pg (27.0-31.0); Mean Platelet Volume 9.3 fL (7.4-10.4); Platelet Count 357 10^3/uL (130-400); Red Cell Dist. Width 13.8 % (11.5-14.5); White Blood Cell Count 7.4 10^3/uL (4.8-10.8)
[2024-03-16 06:59] LABS: Blood Urea Nitrogen 26 mg/dl (7-17); Carbon Dioxide 26 mmol/L (22-30); Chloride 105 mmol/L (98-107); Estimated Creatinine Clearance 43 ml/min; Glucose 82 mg/dl (70-99); Magnesium 1.6 mg/dl (1.6-2.3); Phosphorus 4.8 mg/dl (2.5-4.5); Potassium 4.4 mmol/L (3.5-5.1); Sodium 140 mmol/L (135-145); eGFR > 60.00
[2024-03-16 07:30] VITALS: BP 119/59
--- NOTE | 2024-03-16 08:26 | W.PN.ONC2 ---
Today's Communication / Plan
-
OP XRT
follow pathology
pain management
Impression
Impression
Radiologic findings consistent with metastatic malignancy
History of high-grade bladder carcinoma status post checkpoint inhibitor for failure of intravesicular therapy
Anemia
Cancer Pain
C. diff
Plan
Plan
s/p osteolytic lesion within the posterior right iliac bone, follow for pathology
OP XRT will be arranged upon discharge for palliative pain control
MS Contin 15 mg BID, started 03/11, increased to 30mg BID 03/15, Tramadol and oxycodone IR as needed
Monitor naproxen closely
Proton pump inhibitor
C. difficile management per primary service
Subjective/Objective
Chief Complaint
no new complaints
Subjective
pain improved with increase MS Contin
continues to use lidoderm patch, naproxen, and tramadol prn
BM x 1
ambulating to bathroom, hard to tolerate sitting in chair due to back pain
Daughter Marylou at bedside provided updates
Vital Signs:
Vital Signs
Temp Pulse Resp BP Pulse Ox
99.1 F 94 16 111/51 95
03/15/24 22:58 03/15/24 22:58 03/15/24 22:58 03/15/24 22:58 03/15/24 22:58
Lab Results:
Laboratory Data
WBC 7.4 10^3/uL (4.8-10.8) 03/16/24 05:57
Hgb 9.9 g/dL (12.0-16.0) L 03/16/24 05:57
Plt Count 357 10^3/uL (130-400) 03/16/24 05:57
eGFR > 60.00 03/16/24 05:57
Physical Exam
HEENT: Moist Mucous Membranes; No Jaundice
Cardiology: S1 and S2
Pulmonary: Clear
GI: Soft
Extremities: Pulses Present; No Edema
Neuro: Non Focal
Review of Systems
Review of Systems
ROS notable for subjective, otherwise negative
[2024-03-16 09:07] VITALS: BP 119/59
[2024-03-16] MEDS: LIDOCAINE 4% PATCH 1 PATCH TOPICAL (09:38)
[2024-03-16] MEDS: MS CONTIN (EXTENDED RELEASE) 30 MG PO ×2 (09:38→20:34)
[2024-03-16] MEDS: DIFICID 200 MG PO ×2 (09:38→20:34)
[2024-03-16] MEDS: VITAMIN B-12 1000 MCG PO (09:39)
[2024-03-16] MEDS: OSCAL CAL 500 500 MG PO ×2 (09:39→20:34)
[2024-03-16] MEDS: NORVASC 2.5 MG PO (09:39)
[2024-03-16] MEDS: LEXAPRO 10 MG PO (09:39)
[2024-03-16] MEDS: TYLENOL 1000 MG PO ×3 (09:39→20:33)
[2024-03-16] MEDS: PROTONIX 40 MG PO (09:39)
[2024-03-16] MEDS: VITAMIN D3 (cholecalciferol) 50 MCG PO (09:39)
[2024-03-16] MEDS: NAPROSYN 250 MG PO ×2 (09:40→20:34)
--- NOTE | 2024-03-16 09:52 | W.PN.ID1 ---
Date of Service
Date of Service: March 16, 2024
Today's Communication
See below.
Assessment / Plan
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
- Previously treated with 10 days of fidaxomicin (02/07/24 to 02/16/24)
- No significant response to po Vancomycin (4days)
- Appears to be responding to fidaxomicin 200mg po bid (d2).
Plan for extended fidaxomicin extended dosing:
Fidaxomicin 200mg po bid through 03/19/24, then 200mg po every other day through 04/05/24
- Will set up outpt bezlotoxumab IV x 1 prior to completion of fidaxomicin.
- Monitor stool frequency / consistency.
3 Dysuria/symptomatic UTI
- Will start abx when Ucx data available.
# Bladder cancer with new finding of bone mets and pathological fracture
# Conditions [employer]PER[employer]OR
Hypertension
Hypothyroidism
Bladder cancer status post TURBT 2021, + right ureter stent, s/p Keytruda [id number]
Anxiety/depression
Lumbar radiculopathy
Shelby's esophagus
Cholecystectomy
Bilateral knee replacements
Right MANJIT
Chief Complaint
-: UTI and C-diff
Subjective / Review of Systems
Is having dysuria. Urine specimen sent yesterday.
Diarrhea has reduced in volume today.
Abd cramping with defecation.
Vital Signs / Physical Exam
Vital Signs
Vital Signs
Temp Pulse Resp BP Pulse Ox
97.9 F 81 16 119/59 93
03/16/24 07:30 03/16/24 09:39 03/16/24 07:30 03/16/24 09:39 03/16/24 07:30
Physical Exam
Constitutional: No Acute Distress
Pulmonary: Clear
Gastrointestinal: Soft, Non Tender and Non Distended
Genito-Urinary: Negative CVA Tenderness
Neurological: AO x 3
Objective Data
Lab Data
Lab Results
03/16/24 05:57
03/16/24 05:57
Estimated Creat Clear 43 ml/min 03/16/24 05:57
Total Bilirubin 0.4 mg/dl (0.2-1.3) 03/07/24 11:58
AST 18 U/L (14-36) 03/07/24 11:58
ALT 15 U/L (0-35) 03/07/24 11:58
Alkaline Phosphatase 125 U/L (38-126) 03/07/24 11:58
Most recent labs reviewed.
Micro Results:
03/15/24 16:53 Urine Culture - Pending
Urine
03/11/24 00:00 Salmonella/Shigella Culture - Final
Feces/Stool No Salmonella, Shigella, Aeromonas or Plesiomonas species
isolated.
Campylobacter Culture - Final
No Campylobacter species isolated.
Shiga Toxin Test - Final
No E. coli Shiga Toxin 1 or 2 detected.
03/12/24 01:17 C. difficile GDH Antigen & Toxins - Final
Feces/Stool Toxigenic C.difficile Positive
Guided needle placement CT-03/11/[address]-03/11/2024
Bone scan nuclear medicine-03/09/2024
Focal increased radiopharmaceutical uptake involving the lower sternum.
Focal increased activity involving the right lateral sixth rib and left posterolateral ninth rib.
Scattered focal areas of increased uptake involving the mid cervical spine as well as the L2 and L3 vertebral bodies.
Increased uptake involving the posteromedial right iliac bone.
Above findings are most in keeping with metastatic disease.
Chest CT-03/08/2024.
No acute disease of the chest. No evidence of pulmonary metastatic disease
Findings consistent with mild lytic osseous metastatic disease.
Moderate L1 compression fracture. Stable
--- NOTE | 2024-03-16 11:53 | W.PN.HOSP.TC ---
Addendum entered and electronically signed by Ki Mcelroy MD 03/17/24 12:44:
urine with GNB - start cefepime
Original Note:
Today's Communication/Plan
-
await urine cultures
cont fidaxomicin extended dosing
Assessment / Plan
Assessment / Plan
Physical Exam
General: Well Developed, Well Nourished and No Apparent Distress
HEENT: NormoCephalic, Moist mucous membranes and Atraumatic
Respiratory: Clear
Cardiac: S1/S2 and Regular Rhythm; No Murmur or Rub
GI: Soft, Non Tender, Non Distended and Normal Bowel Sounds; No Organomegaly
Musculoskeletal: No Clubbing, No Cyanosis and No Edema
Skin: No Rash
Neuro: Awake alert conversant coherent some confusion noted
Psych: Calm
83F Bladder Ca Keytruda s/p TURBT HTN Lumbar radiculopathy Ian's Esophagus p/w acute on chronic back pain and imaging concerning for metastasis
#lower back pain likely from metastatic disease/pathological fracture
-CT LE with the impression of small metastatic lesion involving the inferior aspect of the L5 vertebral body, with loss of definition of a small portion of the inferior endplate.Small lytic lesion within the medial left iliac bone superiorly, which
is likely bony metastatic disease.No evidence for fracture or dislocation. No other focal metastatic lesion involving the left hip or proximal femur. It should be noted that MRI or bone scan could be more sensitive for detection of bony metastatic
disease.Changes of degenerative disc disease in the lumbar spine including suggestion of significant central canal stenosis at L4-5.
-lumbar CT with Lytic lesion within the L2 vertebral body with associated subtle pathologic fracture of the superior and inferior endplates of the vertebral body.Lytic lesion within the medial and posterior and superior right iliac bone.Subtle loss
of endplate definition involving the inferior endplate of L5 as described, which is likely from a small adjacent bony lesion.These are very likely bony metastatic lesions.Stable compression deformity of L1 with no evidence for associated neoplastic
lesion.
-Lidocaine patch, Naproxen, and MS contin (increased to 30mg bid), oxy prn
-oncology consult eval appreciated CT chest appreciated no acute abn's, no pulm metastasis, bone scan results appreciated, scheduled MS contin started pain control
-IR eval appreciated CT guided biopsy of osteolytic lesion within the posterior right iliac bone completed 03/11 bx results pending
-PT/OT appreciated home health
CDiff positive
Intermittent episodes diarrhea
-cont low residue diet
-ID on board
-DC po Vanc, switch to fidaxomicin 200mg po bid: Fidaxomicin 200mg po bid through 03/19/24, then 200mg po every other day through 04/05/24
#Dysuria
-UA positive - f/u cultures prior to starting abx in setting of CDiff
#HTN
cont home amlodipine 2.5 mg daily
#Hypothyroidism
cont home levothyroxine 125 mcg daily
#Shelby's Esophagus-- cont 40 mg pantoprazole daily--Should follow-up with gastroenterology and PCP after discharge
#Bladder Cancer--Diagnosed in 2021, s/p TURBT--Remains on Keytruda immunotherapy--Follows with oncology Dr Jonathan Lerma Cancer
#Anxiety/Depression--Continued on home Lexapro, appears stable
DVT PPx: Lovenox subQ
CODE STATUS: DNR
Anticipated Discharge: 24 - 48 hours
Subjective/Interval History
-
Date of Service: March 16, 2024
Still having Diarrhea
Objective Data
-
Labs:
Laboratory Results
03/16/24
05:57
WBC 7.4
Hgb 9.9 L
Hct 30.6 L
Plt Count 357
Sodium 140
Potassium 4.4
Chloride 105
Carbon Dioxide 26
BUN 26 H
Creatinine 0.8
Glucose 82
Calcium 9.0
Vital Signs:
Vital Signs
Temp Pulse Resp BP Pulse Ox
97.9 F 81 16 119/59 93
03/16/24 07:30 03/16/24 09:39 03/16/24 07:30 03/16/24 09:39 03/16/24 10:07
I&O
03/15/24 03/16/24 03/17/24
06:59 06:59 06:59
Intake Total 1080 / 1080 600 / 600
Balance 1080 / 1080 600 / 600
Review of Systems
-
History Source: Patient
All other systems: Not reviewed unless documented
Data Reviewed
-
CT Scan: Image personally visualized and interpreted and Report Reviewed by me
Labs: Labs Reviewed by me
--- NOTE | 2024-03-16 14:20 | CM ---
Reviewed the chart notes and spoke with the patient and her daughter at the bedside. Patient continues with plan of home with [facility]. Per daughter, should have biopsy results today. CM continues to be available to patient/family and is
monitoring medical plan for needs at discharge.
Plan: Discharge to home with VN services when medically stable.
[2024-03-16 15:13] VITALS: BP 121/54; PULSE 91; O2SAT 95
[2024-03-16 15:30] VITALS: BP 106/52
[2024-03-16] MEDS: LOVENOX 40 MG SC (17:01)
--- NOTE | 2024-03-16 23:00 | PTCARENOTE ---
Report given to oncoming RN, nursing assessments completed and as documented, see worklist.
[2024-03-16 23:20] VITALS: BP 119/53
[2024-03-17] MEDS: SYNTHROID 125 MCG PO (05:25)
[2024-03-17 07:38] VITALS: BP 120/56
[2024-03-17 08:07] LABS: Hemoglobin 9.4 g/dL (12.0-16.0); Mean Corp Hgb Conc. 32.4 g/dL (33.0-37.0); Mean Corpuscular Hgb 29.3 pg (27.0-31.0); Mean Corpuscular Volume 90.3 fL (81.0-99.0); Mean Platelet Volume 9.2 fL (7.4-10.4); Platelet Count 366 10^3/uL (130-400); Red Blood Cell Count 3.21 10^6/uL (4.20-5.40); Red Cell Dist. Width 13.9 % (11.5-14.5); White Blood Cell Count 6.9 10^3/uL (4.8-10.8)
[2024-03-17 09:12] LABS: Blood Urea Nitrogen 25 mg/dl (7-17); Carbon Dioxide 25 mmol/L (22-30); Chloride 107 mmol/L (98-107); Estimated Creatinine Clearance 34 ml/min; Glucose 74 mg/dl (70-99); Magnesium 1.6 mg/dl (1.6-2.3); Phosphorus 4.9 mg/dl (2.5-4.5); Potassium 4.8 mmol/L (3.5-5.1); Sodium 142 mmol/L (135-145); eGFR 55.21
[2024-03-17] MEDS: DIFICID 200 MG PO ×2 (09:54→20:25)
[2024-03-17] MEDS: PROTONIX 40 MG PO (09:55)
[2024-03-17] MEDS: LEXAPRO 10 MG PO (09:55)
[2024-03-17] MEDS: NORVASC 2.5 MG PO (09:55)
[2024-03-17] MEDS: OSCAL CAL 500 500 MG PO ×2 (09:56→20:21)
[2024-03-17] MEDS: VITAMIN B-12 1000 MCG PO (09:56)
[2024-03-17] MEDS: VITAMIN D3 (cholecalciferol) 50 MCG PO (09:56)
[2024-03-17] MEDS: LIDOCAINE 4% PATCH 1 PATCH TOPICAL (09:57)
[2024-03-17] MEDS: MS CONTIN (EXTENDED RELEASE) 30 MG PO ×2 (10:00→20:19)
[2024-03-17] MEDS: TYLENOL 1000 MG PO ×3 (10:01→20:25)
[2024-03-17] MEDS: NAPROSYN 250 MG PO ×2 (10:02→20:21)
--- NOTE | 2024-03-17 11:27 | CM ---
Addendum entered by Suzanne Cook RN 03/17/24 16:19:
IMM reviewed and placed on chart.
Original Note:
Reviewed the chart notes. CM continues to be available to patient/family and is monitoring medical plan for needs at discharge.
Plan: Discharge to home when medically stable with [facility] services.
--- NOTE | 2024-03-17 12:23 | W.PN.HOSP.TC ---
Today's Communication/Plan
-
pain control
pt/ot
palliative care consult on GOC, pain assistance
Await urine cultures
continue Fidaxomicin
Assessment / Plan
Assessment / Plan
Physical Exam
General: Well Developed, Well Nourished and No Apparent Distress
HEENT: NormoCephalic, Moist mucous membranes and Atraumatic
Respiratory: Clear
Cardiac: S1/S2 and Regular Rhythm; No Murmur or Rub
GI: Soft, Non Tender, Non Distended and Normal Bowel Sounds; No Organomegaly
Musculoskeletal: No Clubbing, No Cyanosis and No Edema
Skin: No Rash
Neuro: Awake alert conversant coherent some confusion noted
Psych: Calm
83F Bladder Ca Keytruda s/p TURBT HTN Lumbar radiculopathy Ian's Esophagus p/w acute on chronic back pain and imaging concerning for metastasis
#lower back pain likely from metastatic disease/pathological fracture
-CT LE with the impression of small metastatic lesion involving the inferior aspect of the L5 vertebral body, with loss of definition of a small portion of the inferior endplate.Small lytic lesion within the medial left iliac bone superiorly, which
is likely bony metastatic disease.No evidence for fracture or dislocation. No other focal metastatic lesion involving the left hip or proximal femur. It should be noted that MRI or bone scan could be more sensitive for detection of bony metastatic
disease.Changes of degenerative disc disease in the lumbar spine including suggestion of significant central canal stenosis at L4-5.
-lumbar CT with Lytic lesion within the L2 vertebral body with associated subtle pathologic fracture of the superior and inferior endplates of the vertebral body.Lytic lesion within the medial and posterior and superior right iliac bone.Subtle loss
of endplate definition involving the inferior endplate of L5 as described, which is likely from a small adjacent bony lesion.These are very likely bony metastatic lesions.Stable compression deformity of L1 with no evidence for associated neoplastic
lesion.
-Lidocaine patch, Naproxen, and MS contin (increased to 30mg bid), oxy prn
-oncology consult eval appreciated CT chest appreciated no acute abn's, no pulm metastasis, bone scan results appreciated, scheduled MS contin started pain control
-IR joy appreciated CT guided biopsy of osteolytic lesion within the posterior right iliac bone completed 03/11 bx results pending
-PT/OT appreciated home health
CDiff positive
Intermittent episodes diarrhea
-cont low residue diet
-ID on board
-DC po Vanc, switch to fidaxomicin 200mg po bid: Fidaxomicin 200mg po bid through 03/19/24, then 200mg po every other day through 04/05/24
#Dysuria
-UA positive - f/u cultures prior to starting abx in setting of CDiff
#HTN
cont home amlodipine 2.5 mg daily
#Hypothyroidism
cont home levothyroxine 125 mcg daily
#Shelby's Esophagus-- cont 40 mg pantoprazole daily--Should follow-up with gastroenterology and PCP after discharge
#Bladder Cancer--Diagnosed in 2021, s/p TURBT--Remains on Keytruda immunotherapy--Follows with oncology Dr Jonathan Lerma Cancer
#Anxiety/Depression--Continued on home Lexapro, appears stable
DVT PPx: Lovenox subQ
CODE STATUS: DNR
Anticipated Discharge: Within 24 hours
Subjective/Interval History
-
Date of Service: March 17, 2024
pain much improved, awaiting urine cultures
Objective Data
-
Labs:
Laboratory Results
03/17/24
07:14
WBC 6.9
Hgb 9.4 L
Hct 29.0 L
Plt Count 366
Sodium 142
Potassium 4.8
Chloride 107
Carbon Dioxide 25
BUN 25 H
Creatinine 1.0
Glucose 74
Calcium 9.0
Vital Signs:
Vital Signs
Temp Pulse Resp BP Pulse Ox
98.3 F 78 16 120/56 96
03/17/24 07:38 03/17/24 09:55 03/17/24 07:38 03/17/24 09:55 03/17/24 07:38
I&O
03/16/24 03/17/24 03/18/24
06:59 06:59 06:59
Intake Total 600 / 600 1680 / 1680
Balance 600 / 600 1680 / 1680
Review of Systems
-
History Source: Patient
All other systems: Not reviewed unless documented
Physical Exam
-
General: Well Developed, Well Nourished and No Apparent Distress
HEENT: Normocephalic and Atraumatic
Respiratory: Clear to Auscultation; Negative Wheezes or Rhonchi
Cardiac: Regular Rhythm and S1/S2; Negative Murmur
GI: Soft, Nontender, Nondistended and Normal Bowel Sounds
Musculoskeletal: No Clubbing and No Cyanosis; Negative No Edema (1+ LE edema bilaterally)
Skin: Warm
Neuro: Awake
Data Reviewed
-
CT Scan: Image personally visualized and interpreted and Report Reviewed by me
Labs: Labs Reviewed by me
--- NOTE | 2024-03-17 13:49 | W.PN.ID1 ---
Date of Service
Date of Service: March 17, 2024
Today's Communication
Start empiric cefepime for symptomatic UTI.
Assessment / Plan
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, improved
- Previously treated with 10 days of fidaxomicin (02/07/24 to 02/16/24)
- No significant response to po Vancomycin (4days)
- responding to fidaxomicin 200mg po bid (d3).
Plan for extended fidaxomicin dosing:
Fidaxomicin 200mg po bid through 03/19/24, then 200mg po every other day through 04/05/24
- Will set up outpt bezlotoxumab IV x 1 prior to completion of fidaxomicin.
3 Dysuria/symptomatic UTI
- Ucx >100k GNR
- Start empiric cefepime 1g IV q12 pending final cx data.
# Bladder cancer with new finding of bone mets and pathological fracture
# Conditions [employer]
Hypertension
Hypothyroidism
Bladder cancer status post TURBT 2021, + right ureter stent, s/p Keytruda [id number]
Anxiety/depression
Lumbar radiculopathy
Shelby's esophagus
Cholecystectomy
Bilateral knee replacements
Right MANJIT
Chief Complaint
-: UTI and C-diff
Subjective / Review of Systems
Unable to sit up due to pain.
Diarrhea resolving.
Still with dysuria.
Vital Signs / Physical Exam
Vital Signs
Vital Signs
Temp Pulse Resp BP Pulse Ox
98.3 F 78 16 120/56 96
03/17/24 07:38 03/17/24 09:55 03/17/24 07:38 03/17/24 09:55 03/17/24 07:38
Physical Exam
Constitutional: No Acute Distress
Pulmonary: Clear
Gastrointestinal: Soft, Non Tender and Non Distended
Genito-Urinary: Negative Reid or CVA Tenderness
Extremities: Negative Edema
Neurological: AO x 3
Objective Data
Lab Data
Lab Results
03/17/24 07:14
03/17/24 07:14
Estimated Creat Clear 34 ml/min 03/17/24 07:14
Total Bilirubin 0.4 mg/dl (0.2-1.3) 03/07/24 11:58
AST 18 U/L (14-36) 03/07/24 11:58
ALT 15 U/L (0-35) 03/07/24 11:58
Alkaline Phosphatase 125 U/L (38-126) 03/07/24 11:58
Most recent labs reviewed.
Micro Results:
03/15/24 16:53 Urine Culture - Preliminary
Urine Gram negative bacilli
03/11/24 00:00 Salmonella/Shigella Culture - Final
Feces/Stool No Salmonella, Shigella, Aeromonas or Plesiomonas species
isolated.
Campylobacter Culture - Final
No Campylobacter species isolated.
Shiga Toxin Test - Final
No E. coli Shiga Toxin 1 or 2 detected.
03/12/24 01:17 C. difficile GDH Antigen & Toxins - Final
Feces/Stool Toxigenic C.difficile Positive
Guided needle placement CT-03/11/[address]-03/11/2024
Bone scan nuclear medicine-03/09/2024
Focal increased radiopharmaceutical uptake involving the lower sternum.
Focal increased activity involving the right lateral sixth rib and left posterolateral ninth rib.
Scattered focal areas of increased uptake involving the mid cervical spine as well as the L2 and L3 vertebral bodies.
Increased uptake involving the posteromedial right iliac bone.
Above findings are most in keeping with metastatic disease.
Chest CT-03/08/2024.
No acute disease of the chest. No evidence of pulmonary metastatic disease
Findings consistent with mild lytic osseous metastatic disease.
Moderate L1 compression fracture. Stable
--- NOTE | 2024-03-17 14:10 | W.CON.PAL ---
Consultation
-
Date/Time Consultation Requested: 03/16/2024
Date/Time Consultation Performed: 03/17/2024
Requesting Provider: Dr. Mcelroy
Performing Provider: Dr. Nation
Reason for Consult: Goals of Care Discussion
Primary Diagnosis: Bladder Cancer with new L2/L5 Met, L2 pathological fracture
Consult Requested By: Patient's Family
Reason for Admission
Illness Course/HPI
Debi is a 83 y/o female with pmhx of bladder cancer on keytruda, Lumbar DD, hypothyroidism, HTN, OA, barettts and recurrent CDiff
Admitted to hospital with back and hip pain, could not ambulate at home. Found to have new met to L2/L5 with pathological fracture of L2.
Bone biopsy done on 03/11.
Functional Status
Patient is iat her baseline independent of her personal care needs, lives alone in an appartment.
Currently with pain management, able to ambulate short distances in the room, but increased pain with seated. is comfortable when laying down. has not taken tramadol last few days.
Supported by her daughters ( 4 living, and grandchildren). There is some disagreements amongst the family, however daughters and grandchildren plan to take turns to provide care for her in the home.
Has access to walker, fall alert, cane, transport chair, tub seat, and commode.
Accepts home palliative care visit
Goals of Care Discussion
-
Patient able to participate in discussion at time of visit: Yes
Patient's Information Preferences: Fully Involved/Able to Participate
Patient Goals
Patient accepting that her cancer is advanced, not sure she wants to do aggressive therapies, but wishes to make decisions after bone biospy results are in. has appointment with dr. lezama on 03/24.
Discussed radiation option for bone met - encouraged her to explore this to reduce opioid needs. She is open to meeting with them as an outpatient.
Discussed palliative care, hospice options
Has LW in chart - of NOTE, there is a living will form 2014 which named daughter Joelle as primary, but MOST RECENT LW - has Marylou as primary HcPOA, this is dated 2023.
At the end of life goals are comfort oriented
Pain & Symptom Assessment
[place] Symptom Scale 0=none, 10=worst
Pain: 1
Tired: 0
Drowsy: 0
Appetite: 2
Shortness of Breath: 0
-
Reports no significant pain at rest, pain is described as radiating across low back. pain worse with sitting, unable to tolerate more than 5 mins sitting. able to ambulate 30 feet about with therapy.
Denies constipation (has cdiff), but no BM today - will need to monitor
denies sedation fom pain meds
no other symptoms described at this time
Objective Data
-
Objective Data:
Vital Signs
Temp Pulse Resp BP Pulse Ox
98.3 F 78 16 120/56 96
03/17/24 07:38 03/17/24 09:55 03/17/24 07:38 03/17/24 09:55 03/17/24 07:38
Laboratory Results
03/17/24 07:14
03/17/24 07:14
Total Protein 6.6 g/dl (6.3-8.2) 03/07/24 11:58
Albumin 3.8 g/dl (3.5-5.0) 03/07/24 11:58
Urine Color Yellow 03/15/24 16:53
Urine Clarity Very cloudy (Clear) 03/15/24 16:53
Urine pH 6.0 (5.0-9.0) 03/15/24 16:53
Ur Specific Hana 1.020 (<1.030) 03/15/24 16:53
Urine Ketones Negative (Negative) 03/15/24 16:53
Urine Bilirubin Negative (Negative) 03/15/24 16:53
Palliative Performance Scale
Palliative Performance Scale:
PPS Level Ambulation Activity & Evidence of Disease Self Care Intake Conscious Level
100% Full Normal Activity & Work; Full Intake Full
No Evidence of Disease
90% Full Normal Activity & Work; Full Normal Full
Some Evidence of Disease
80% Full Normal Activity with Effort Full Normal or Full
Some Evidence of Disease Reduced
70% Reduced Unable Normal Job/Work Full Normal or Full
Significant Disease Reduced
60% Reduced Unable Hobby/Housework Occasional Normal or Full or Confusion
Significant Disease Assistance Reduced
50% Mainly Sit/Lie Unable to do Any Work Considerable Normal or Full or Confusion
Extensive Disease Assistance Req'd Reduced
40% Mainly in Bed Unable to do Most Activity Mainly Assistance Normal or Full or Drowsy;
Extensive Disease Reduced +/- Confusion
30% Totally Bed Unable to do Any Activity Total Care Normal or Full or Drowsy;
Bound Extensive Disease Reduced +/- Confusion
20% Totally Bed Bound Unable to do Any Activity Total Care Minimal to Full or Drowsy;
Extensive Disease Sips +/- Confusion
10% Totally Bed Bound Unable to do Any Activity Total Care Mouth Care Drowsy or Coma;
Extensive Disease Only +/- Confusion
0%
PPS Score Level:
Palliative Performance Score Response
Palliative Performance Score Response: 50%
Physical Exam
-
General: Well Developed and Well Nourished
Neuro: Awake and Alert
Psych: Calm
Laying comfortably in bed during visit
Assessment / Plan
-
Assessment/Plan:
Agreeable to outpatient palliative correction visits
Recommend in home caregiviers - either family or paid, recommend homecare pt/ot if going home
Pain: Continue current regimen MSER 30 Q 12, naproxen and tylenol scheduled, lidocaine patch scheduled, tramadol 25mg PRN - encourage her to take before therapy and if she knows she will be sitting (such as traveling to and from radiation). Follow
up with radiation oncology visit and dr. lezama's visit as planned.
Advanced directives: 2023 directives are in the chart - Marylou is the medical poa.
Care Reviewed
Data Reviewed
Reviewed with: Patient and Family
[2024-03-17] MEDS: MAXIPIME 1000 MG IV (14:34)
[2024-03-17] MEDS: STERILE WATER FOR INJECTION 10 ML IV (14:35)
[2024-03-17] MEDS: ULTRAM 25 MG PO (15:01)
[2024-03-17 15:12] VITALS: BP 142/66
[2024-03-17 15:50] VITALS: BP 111/53; PULSE 84; O2SAT 95
[2024-03-17] MEDS: LOVENOX 40 MG SC (17:34)
[2024-03-17 23:20] VITALS: BP 123/55
[2024-03-18] MEDS: MAXIPIME 1000 MG IV (02:17)
[2024-03-18] MEDS: STERILE WATER FOR INJECTION 10 ML IV (02:17)
[2024-03-18] MEDS: SYNTHROID 125 MCG PO (04:34)
[2024-03-18 07:39] LABS: Hematocrit 29.3 % (37.0-47.0); Hemoglobin 9.5 g/dL (12.0-16.0); Mean Corp Hgb Conc. 32.4 g/dL (33.0-37.0); Mean Corpuscular Hgb 29.1 pg (27.0-31.0); Mean Corpuscular Volume 89.6 fL (81.0-99.0); Mean Platelet Volume 9.1 fL (7.4-10.4); Platelet Count 365 10^3/uL (130-400); Red Blood Cell Count 3.27 10^6/uL (4.20-5.40); Red Cell Dist. Width 13.6 % (11.5-14.5); White Blood Cell Count 7.2 10^3/uL (4.8-10.8)
[2024-03-18 07:40] VITALS: BP 124/59
[2024-03-18 08:08] LABS: Blood Urea Nitrogen 23 mg/dl (7-17); Calcium 9.2 mg/dl (8.4-10.2); Carbon Dioxide 28 mmol/L (22-30); Chloride 106 mmol/L (98-107); Estimated Creatinine Clearance 43 ml/min; Glucose 82 mg/dl (70-99); Magnesium 1.7 mg/dl (1.6-2.3); Phosphorus 4.7 mg/dl (2.5-4.5); Potassium 4.9 mmol/L (3.5-5.1); Sodium 141 mmol/L (135-145); eGFR > 60.00
[2024-03-18] MEDS: TYLENOL 1000 MG PO ×2 (08:26→15:35)
[2024-03-18] MEDS: OSCAL CAL 500 500 MG PO ×2 (08:28→19:31)
[2024-03-18] MEDS: DIFICID 200 MG PO ×2 (08:28→19:30)
[2024-03-18] MEDS: PROTONIX 40 MG PO (08:28)
[2024-03-18] MEDS: NAPROSYN 250 MG PO ×2 (08:29→19:31)
[2024-03-18] MEDS: NORVASC 2.5 MG PO (08:29)
[2024-03-18] MEDS: VITAMIN D3 (cholecalciferol) 50 MCG PO (08:29)
[2024-03-18] MEDS: LEXAPRO 10 MG PO (08:29)
[2024-03-18] MEDS: VITAMIN B-12 1000 MCG PO (08:29)
[2024-03-18] MEDS: LIDOCAINE 4% PATCH 1 PATCH TOPICAL (08:30)
[2024-03-18] MEDS: MS CONTIN (EXTENDED RELEASE) 30 MG PO ×2 (08:31→19:31)
--- NOTE | 2024-03-18 09:37 | W.PN.ONC ---
Today's Communication / Plan
-
right iliac status post biopsy pathology pending this morning
Radiation therapy likely appropriate
Palliative care appreciated
Monitor naproxen closely
Proton pump inhibitor
C. difficile management per primary service
Impression
Impression
Radiologic findings consistent with metastatic malignancy
History of high-grade bladder carcinoma status post checkpoint inhibitor for failure of intravesicular therapy
Anemia
Cancer Pain
C. diff
Subjective/Objective
Subjective/Objective
Pain appears reasonably well-controlled today.
Vital Signs:
Vital Signs
Temp Pulse Resp BP Pulse Ox
97.9 F 74 16 124/59 96
03/18/24 07:40 03/18/24 08:29 03/18/24 07:40 03/18/24 08:29 03/18/24 07:40
No scleral icterus
Heart regular
Lungs without rales
Extremities without asymmetry
Lab Results:
Laboratory Data
WBC 7.2 10^3/uL (4.8-10.8) 03/18/24 06:33
Hgb 9.5 g/dL (12.0-16.0) L 03/18/24 06:33
Plt Count 365 10^3/uL (130-400) 03/18/24 06:33
eGFR > 60.00 03/18/24 06:33
--- NOTE | 2024-03-18 09:52 | W.PN.ID1 ---
Date of Service
Date of Service: March 18, 2024
Today's Communication
Transition cefepime to cephalexin 500mg po tid through 03/21.
Continue fidaxomicin.
Assessment / Plan
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, improved
- Previously treated with 10 days of fidaxomicin (02/07/24 to 02/16/24)
- No significant response to po Vancomycin (4days)
- responding to fidaxomicin 200mg po bid (d4).
Plan for extended fidaxomicin dosing:
Fidaxomicin 200mg po bid through 03/19/24, then 200mg po every other day through 04/05/24
- Will set up outpt bezlotoxumab IV x 1 prior to completion of fidaxomicin.
3 symptomatic UTI
- Ucx >100k E. coli
- Transition cefepime to cephalexin 500mg po tid through 03/21.
# Bladder cancer with new finding of bone mets and pathological fracture
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
Hypertension
Hypothyroidism
Bladder cancer status post TURBT 2021, + right ureter stent, s/p Keytruda [id number]
Anxiety/depression
Lumbar radiculopathy
Shelby's esophagus
Cholecystectomy
Bilateral knee replacements
Right MANJIT
Chief Complaint
-: UTI and C-diff
Subjective / Review of Systems
No BM over 24hrs.
Had dysuria last night, none today.
Vital Signs / Physical Exam
Vital Signs
Vital Signs
Temp Pulse Resp BP Pulse Ox
97.9 F 74 16 124/59 96
03/18/24 07:40 03/18/24 08:29 03/18/24 07:40 03/18/24 08:29 03/18/24 07:40
Physical Exam
Constitutional: No Acute Distress
Pulmonary: Clear
Gastrointestinal: Soft, Non Tender and Non Distended
Genito-Urinary: Negative CVA Tenderness
Neurological: AO x 3
Objective Data
Lab Data
Lab Results
03/18/24 06:33
03/18/24 06:33
Estimated Creat Clear 43 ml/min 03/18/24 06:33
Total Bilirubin 0.4 mg/dl (0.2-1.3) 03/07/24 11:58
AST 18 U/L (14-36) 03/07/24 11:58
ALT 15 U/L (0-35) 03/07/24 11:58
Alkaline Phosphatase 125 U/L (38-126) 03/07/24 11:58
Most recent labs reviewed.
Micro Results:
03/15/24 16:53 Urine Culture - Final
Urine Escherichia coli
Escherichia coli#2
03/11/24 00:00 Salmonella/Shigella Culture - Final
Feces/Stool No Salmonella, Shigella, Aeromonas or Plesiomonas species
isolated.
Campylobacter Culture - Final
No Campylobacter species isolated.
Shiga Toxin Test - Final
No E. coli Shiga Toxin 1 or 2 detected.
03/12/24 01:17 C. difficile GDH Antigen & Toxins - Final
Feces/Stool Toxigenic C.difficile Positive
Guided needle placement CT-03/11/[address]-03/11/2024
Bone scan nuclear medicine-03/09/2024
Focal increased radiopharmaceutical uptake involving the lower sternum.
Focal increased activity involving the right lateral sixth rib and left posterolateral ninth rib.
Scattered focal areas of increased uptake involving the mid cervical spine as well as the L2 and L3 vertebral bodies.
Increased uptake involving the posteromedial right iliac bone.
Above findings are most in keeping with metastatic disease.
Chest CT-03/08/2024.
No acute disease of the chest. No evidence of pulmonary metastatic disease
Findings consistent with mild lytic osseous metastatic disease.
Moderate L1 compression fracture. Stable
[2024-03-18] MEDS: KEFLEX 500 MG PO ×3 (10:21→19:32)
--- NOTE | 2024-03-18 11:49 | W.PN.PAL2 ---
Today's Communication
-
Patient seen for follow up today. Pain is controlled. She was able to walk 150feet with therapy and tolerated sitting in chair. No BM yet today, monitor for constipation development from opioids as cdiff resolves. Provided brochure for palliative
care services, patient aware to call when home to schedule home visit follow up. No new palliative care needs. Goals are treatment oriented at this time, biopsy results pending.
Assessment / Plan
-
Assessment/Plan:
Agreeable to outpatient palliative shelter visits
Recommend in home caregiviers - either family or paid, recommend homecare pt/ot if going home
Pain: Continue current regimen MSER 30 Q 12, naproxen and tylenol scheduled, lidocaine patch scheduled, tramadol 25mg PRN - encourage her to take before therapy and if she knows she will be sitting (such as traveling to and from radiation). Follow
up with radiation oncology visit and dr. lezama's visit as planned.
Advanced directives: 2023 directives are in the chart - Marylou is the medical poa.
Pain & Symptom Assessment
[place] Symptom Scale 0=none, 10=worst
Pain: 0
Tired: 0
Drowsy: 0
Nausea: 0
Appetite: 0
Shortness of Breath: 0
Depressed: 0
Anxiety: 0
[place]
-
Overall feeling ok. able to do more in last 24 hours
Objective Data
-
Objective Data:
Vital Signs
Temp Pulse Resp BP Pulse Ox
97.9 F 74 16 124/59 96
03/18/24 07:40 03/18/24 08:29 03/18/24 07:40 03/18/24 08:29 03/18/24 07:40
Laboratory Results
03/18/24 06:33
03/18/24 06:33
Total Protein 6.6 g/dl (6.3-8.2) 03/07/24 11:58
Albumin 3.8 g/dl (3.5-5.0) 03/07/24 11:58
Urine Color Yellow 03/15/24 16:53
Urine Clarity Very cloudy (Clear) 03/15/24 16:53
Urine pH 6.0 (5.0-9.0) 03/15/24 16:53
Ur Specific [place] 1.020 (<1.030) 03/15/24 16:53
Urine Ketones Negative (Negative) 03/15/24 16:53
Urine Bilirubin Negative (Negative) 03/15/24 16:53
Palliative Performance Score Response
Palliative Performance Score Response: 50%
Physical Exam
-
General: Well Developed
HEENT: Moist Mucous Membranes
Neuro: Awake and Alert
Psych: Calm
--- NOTE | 2024-03-18 11:52 | CM ---
Reviewed the chart notes. CM continues to be available to patient/family and is monitoring medical plan for needs at discharge.
Plan: Discharge to home when medically stable with VN services.
--- NOTE | 2024-03-18 13:34 | W.PN.HOSP.TC ---
Addendum entered and electronically signed by Ki Mcelroy MD 03/19/24 17:03:
[id number]
Original Note:
Today's Communication/Plan
-
dc on pain regimen, fidaxomicin, cephalexin
F/u PCP, Oncology outpatient
Assessment / Plan
Assessment / Plan
Physical Exam
General: Well Developed, Well Nourished and No Apparent Distress
HEENT: NormoCephalic, Moist mucous membranes and Atraumatic
Respiratory: Clear
Cardiac: S1/S2 and Regular Rhythm; No Murmur or Rub
GI: Soft, Non Tender, Non Distended and Normal Bowel Sounds; No Organomegaly
Musculoskeletal: No Clubbing, No Cyanosis and No Edema
Skin: No Rash
Neuro: Awake alert conversant coherent some confusion noted
Psych: Calm
83F Bladder Ca Keytruda s/p TURBT HTN Lumbar radiculopathy Ian's Esophagus p/w acute on chronic back pain and imaging concerning for metastasis
#lower back pain likely from metastatic disease/pathological fracture
-CT LE with the impression of small metastatic lesion involving the inferior aspect of the L5 vertebral body, with loss of definition of a small portion of the inferior endplate.Small lytic lesion within the medial left iliac bone superiorly, which
is likely bony metastatic disease.No evidence for fracture or dislocation. No other focal metastatic lesion involving the left hip or proximal femur. It should be noted that MRI or bone scan could be more sensitive for detection of bony metastatic
disease.Changes of degenerative disc disease in the lumbar spine including suggestion of significant central canal stenosis at L4-5.
-lumbar CT with Lytic lesion within the L2 vertebral body with associated subtle pathologic fracture of the superior and inferior endplates of the vertebral body.Lytic lesion within the medial and posterior and superior right iliac bone.Subtle loss
of endplate definition involving the inferior endplate of L5 as described, which is likely from a small adjacent bony lesion.These are very likely bony metastatic lesions.Stable compression deformity of L1 with no evidence for associated neoplastic
lesion.
-Lidocaine patch, Naproxen, and MS contin (increased to 30mg bid), oxy prn
-oncology consult eval appreciated CT chest appreciated no acute abn's, no pulm metastasis, bone scan results appreciated, scheduled MS contin started pain control
-IR eval appreciated CT guided biopsy of osteolytic lesion within the posterior right iliac bone completed 03/11 bx results pending
-PT/OT appreciated home health
-F/u Onc outpatient
CDiff positive
Intermittent episodes diarrhea
-cont low residue diet
-ID on board
-DC po Vanc, switch to fidaxomicin 200mg po bid: Fidaxomicin 200mg po bid through 03/19/24, then 200mg po every other day through 04/05/24
#Dysuria
#UTI, Ecoli
-Transition cefepime to cephalexin 500mg po tid through 03/21.
#HTN
cont home amlodipine 2.5 mg daily
#Hypothyroidism
cont home levothyroxine 125 mcg daily
#Shelby's Esophagus-- cont 40 mg pantoprazole daily--Should follow-up with gastroenterology and PCP after discharge
#Bladder Cancer--Diagnosed in 2021, s/p TURBT--Remains on Keytruda immunotherapy--Follows with oncology Dr Jonathan [facility]
#Anxiety/Depression--Continued on home Lexapro, appears stable
DVT PPx: Lovenox subQ
CODE STATUS: DNR
More than 30 minutes spent in discharge including
Final examination of the patient
Summarizing hospital stay
Instructions for continuing care to all relevant caregivers
Preparation of discharge records, prescriptions, and referral forms
Total time spent (35 in minutes):
Anticipated Discharge: Today
Subjective/Interval History
-
Date of Service: March 18, 2024
no bm since yesterday - diarrhea improved
Objective Data
-
Labs:
Laboratory Results
03/18/24
06:33
WBC 7.2
Hgb 9.5 L
Hct 29.3 L
Plt Count 365
Sodium 141
Potassium 4.9
Chloride 106
Carbon Dioxide 28
BUN 23 H
Creatinine 0.8
Glucose 82
Calcium 9.2
Vital Signs:
Vital Signs
Temp Pulse Resp BP Pulse Ox
97.9 F 74 16 124/59 96
03/18/24 07:40 03/18/24 08:29 03/18/24 07:40 03/18/24 08:29 03/18/24 07:40
I&O
03/17/24 03/18/24 03/19/24
06:59 06:59 06:59
Intake Total 1680 / 1680 1080 / 1080
Balance 1680 / 1680 1080 / 1080
Review of Systems
-
History Source: Patient
All other systems: Not reviewed unless documented
Data Reviewed
-
CT Scan: Image personally visualized and interpreted and Report Reviewed by me
Labs: Labs Reviewed by me
--- NOTE | 2024-03-18 14:02 | W.DS.TRANS ---
DC Summary - [employer]
-
Discharge Instructions:
Discharge Diagnosis/Procedures lower back pain
lumbar CT with Lytic lesion within the L2
vertebral body
Pain control
CDiff
UTI
Diet Low Cholesterol,Low Fat,Low Residue,Low Fiber
Activity As tolerated
Others Tests pathology follow up with Oncology outpatient
Follow up with Infectious Disease: Planning for
outpatient bezlotoxumab IV x 1 prior to
completion of fidaxomicin.
Instructions:
Stand-Alone Forms:
Changes to Home Medications: No
Discharge Medications:
DC Medications w/original date entered in [employer]
cholecalciferol (vitamin D3) 50 mcg (2,000 unit) tablet 2,000 units PO DAILY Supplement 05/09/21
levothyroxine 125 mcg tablet 125 mcg PO DAILY Thyroid 05/09/21
multivitamin with folic acid 400 mcg tablet (Tab-A-Cesario) 1 tab PO DAILY Supplement 05/09/21
pantoprazole 40 mg tablet,delayed release 40 mg PO DAILY Gastrointestinal issue 05/09/21
amlodipine 2.5 mg tablet 2.5 mg PO DAILY Blood pressure ##0 06/05/21
calcium carbonate (Calcium 600) 600 mg PO BID 03/07/24
cyanocobalamin (vitamin B-12) 1,000 mcg tablet 1,000 mcg PO DAILY 03/07/24
efinaconazole 10 % topical solution with applicator (Jublia) 1 applic topical DAILYPRN PRN toe infection 03/07/24
escitalopram oxalate 10 mg tablet 10 mg PO DAILY 03/07/24
acetaminophen 500 mg tablet (Tylenol Extra Strength) 1,000 mg (2 x 500 mg) PO TID 14 days #84 tabs 03/18/24
bisacodyl 10 mg rectal suppository 10 mg [place] [id number] PRN constipation #30 ea 03/18/24
cephalexin 500 mg capsule 500 mg PO TID 4 days #12 caps 03/18/24
fidaxomicin 200 mg tablet 200 mg PO Q OTHER DAY 18 days #9 tabs 03/18/24
fidaxomicin 200 mg tablet (Dificid) 200 mg PO BID 2 days #4 tabs 03/18/24
lidocaine 4 % topical patch 1 patch topical DAILY #30 ea 03/18/24
morphine 15 mg tablet,extended release 30 mg (2 x 15 mg) PO Q12 7 days #28 tabs 03/18/24
naproxen 250 mg tablet 250 mg PO BID 14 days #28 tabs 03/18/24
oxycodone 5 mg tablet 5 mg PO Q4HPRN PRN severe pain #40 tabs 03/18/24
polyethylene glycol 3350 17 gram oral powder packet (HealthyLax) 17 g PO DAILYPRN PRN constipation #100 ea 03/18/24
sennosides 8.6 mg-docusate sodium 50 mg tablet 1 tab PO BIDPRN PRN constipation #30 tabs 03/18/24
tramadol 50 mg tablet 25 mg (1/2 x 50 mg) PO Q8HPRN PRN moderate pain #21 tabs 03/18/24
Home Medication Changes
acetaminophen 500 mg tablet (Tylenol Extra Strength) 1,000 mg (2 x 500 mg) PO TID 14 days #84 tabs 03/18/24
bisacodyl 10 mg rectal suppository 10 mg [place] [id number] PRN constipation #30 ea 03/18/24
cephalexin 500 mg capsule 500 mg PO TID 4 days #12 caps 03/18/24
fidaxomicin 200 mg tablet 200 mg PO Q OTHER DAY 18 days #9 tabs 03/18/24
fidaxomicin 200 mg tablet (Dificid) 200 mg PO BID 2 days #4 tabs 03/18/24
lidocaine 4 % topical patch 1 patch topical DAILY #30 ea 03/18/24
morphine 15 mg tablet,extended release 30 mg (2 x 15 mg) PO Q12 7 days #28 tabs 03/18/24
naproxen 250 mg tablet 250 mg PO BID 14 days #28 tabs 03/18/24
oxycodone 5 mg tablet 5 mg PO Q4HPRN PRN severe pain #40 tabs 03/18/24
polyethylene glycol 3350 17 gram oral powder packet (HealthyLax) 17 g PO DAILYPRN PRN constipation #100 ea 03/18/24
sennosides 8.6 mg-docusate sodium 50 mg tablet 1 tab PO BIDPRN PRN constipation #30 tabs 03/18/24
tramadol 50 mg tablet 25 mg (1/2 x 50 mg) PO Q8HPRN PRN moderate pain #21 tabs 03/18/24
Pending Results: No
[2024-03-18 15:17] VITALS: BP 123/53
[2024-03-18] MEDS: FLUAD (65 yr+) 2024-2025 FORMULA 0.5 ML IM (15:35)
[2024-03-18] MEDS: LOVENOX SC (17:13)
[2024-03-18 19:27] VITALS: BP 160/78
--- NOTE | 2024-03-18 19:39 | PTCARENOTE ---
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 All medications scheduled for 1999 given + Keflex scheduled at 2200 given at this time d/t family unable [facility]. Pt refused to listen d/c instruction wanting
to leave, offered a wheelchair or walker many times , refused both insisting on walking to the car and repeating ' I don't need anything from you, I am fine, they told me I am fine'. Family walking by pt's side.
== END 2024-03-18 19:50 | disposition home health service (06) | DRG 478 ==
LOC: 2 NORTH 16:29
PROVIDERS: Internal Medicine; Nurse Practitioner; Radiology Diagnostic Radiology; Registered Nurse; ADMITTING PHYSICIAN Hospitalist; ATTENDING PHYSICIAN Internal Medicine; CONSULT PHYSICIAN Internal Medicine Hematology & Oncology; CONSULT PHYSICIAN Internal Medicine Hospice and Palliative Medicine; EMERGENCY PHYSICIAN Emergency Medicine; FAMILY PHYSICIAN Nurse Practitioner Primary Care; OTHER PHYSICIAN Internal Medicine Infectious Disease
PROC: 0QB23ZX Excision of Right Pelvic Bone, Percutaneous Approach, Diagnostic (ICD-10-PCS; 2024-03-11)
DX: C79.51 Secondary malignant neoplasm of bone (principal); N39.0 Urinary tract infection, site not specified; C67.9 Malignant neoplasm of bladder, unspecified; I10 Essential (primary) hypertension; E03.9 Hypothyroidism, unspecified; K22.70 Barrett's esophagus without dysplasia; F41.9 Anxiety disorder, unspecified; F32.A Depression, unspecified; Z66 Do not resuscitate; G89.3 Neoplasm related pain (acute) (chronic); T45.1X5A Adverse effect of antineoplastic and immunosuppressive drugs, initial encounter; L89.322 Pressure ulcer of left buttock, stage 2; L89.312 Pressure ulcer of right buttock, stage 2; Y84.8 Other medical procedures as the cause of abnormal reaction of the patient, or of later complication, without mention of misadventure at the time of the procedure
CPT/HCPCS: 88307; 88311; 20225; 71260; 72131; 73700; 77012; 78306; 80048; 80053; 81003; 81015; 83735; 84100; 84484; 85025; 85027; 87045; 87046; 87077; 87086; 87186; 87324; 87427; 87449; 88333; 88334; 88341; 88342; 88360; 90662; 93005; 96374; 96375; 97116; 97163; 97167; 97530; 97535; 99152; 99285; A9503; G0008; Q9967

== ENCOUNTER 2024-03-23 12:50 | Outpatient (RCR) | payer BC, MEDICARE, SELFPAY ==
[2024-03-23] MEDS: ZINPLAVA 276 MG IV (13:33)
[2024-03-23 13:45] VITALS: BP 136/57
[2024-03-23 14:50] VITALS: BP 125/54
== END 2024-03-24 08:21 | disposition home or self-care (01) ==
LOC: OID 12:50
PROVIDERS: ATTENDING PHYSICIAN Internal Medicine Infectious Disease; FAMILY PHYSICIAN Nurse Practitioner Primary Care
DX: A04.71 Enterocolitis due to Clostridium difficile, recurrent (principal)
CPT/HCPCS: 96365; J0565